=== PATIENT | male | born 1940 | race Caucasian/White ===

== ENCOUNTER → 2016-02-29 | Outpatient (CLI) | payer OTHER ==
[~2016-02-29] VITALS: Ht 177.8 cm; Wt 117.8 kg
[~2016-02-29] MED LIST: ALL300 PO; ALLO300T2 PO; ASPI81TA28 PO; ATOR-24 PO; CHOL1CAP67 PO; ERGO500037 PO; FINA5TAB PO; FURO-85 PO; INSDGI SC; INSUINJ4 SQ; METO25TA56 PO; NVLGI/PEN SQ; OMEG10007 PO
[2016-02-29 14:02] VITALS: BP 131/71; PULSE 80; Ht 177.8 cm; Wt 117.8 kg
== END | disposition home or self-care (01) ==
LOC: C.NEUR 13:42
PROVIDERS: ATTEND Internal Medicine Pulmonary Disease
DX: G47.33 Obstructive sleep apnea (adult) (pediatric) (principal)

== ENCOUNTER → 2016-03-03 | Outpatient (CLI) | payer OTHER ==
[~2016-03-03] MED LIST changes: -ALLO300T2 PO; -INSDGI SC
--- NOTE | 2016-03-04 06:03 | SPLIT NIGHT TECHNICIAN REPORT ---
[facility] Split Night Polysomnogram - Locomotive Operator Helper Report Study date: 03/03/2016 Referring Physician: Joe Webb M.D. Name: YURI PIMENTEL Locomotive Operator Helper: SAMIR Crain. Date of : 1940 Height: 75 years, Height 5' 10" Sex: Male Weight: 259 lbs Age: 75 Neck Circum: 19 inches BMI: Medications: 37.16 Allopurinol 300 mg, Aspirin 81 mg, Atorvastatin Calcium 40 mg, Ergocalciferol 72417 unit, Finasteride 5 mg, Fish Oil 1000 mg, Furosemide 20 mg, Lanuts, Metoprolol Tartrate 25 mg, Novolog 100 units, Patient History 75 yr. old male here for a modified split night sleep study if his AHI is greater than 15 in two hours of sleep. He complains of loud snoring, witnessed apneas, and EDS. Patients [place] sleepiness scale score is 15/24. Parameters Monitored NPSG: E1-M2, E2-M1, Fp1-M2, Fp2-M1, F3-M2, F4-M2, F4-M1, C3-M2, C4-M2, C4-M1, O1-M2, O2-M2, O2-M1, T3-M2, T4-M1, P3-M2, P4-M1, CHIN1, CHIN2, HR, EKG, Legs, PFLOW, SNOR, FLOW, CFLOW, Tidal Volume, THOR, ABDO, SpO2, PLTH, CPRESS, ETCO2 Wave, ETCO2, pH SLEEP SUMMARY DATA DIAGNOSTIC TREATMENT Lights Out: 11:08:25 PM NONE Lights On: 1:57:25 AM 5:37:25 AM Total Recording Time (TRT): 169.8 min. 207.2 min. Total Sleep Time (TST): 120.5 min. 202.5 min. NREM Time: 98.5 min. 137.0 min. REM Time: 22.0 min. 65.5 min. Sleep Period Time (SPT): 161.5 min. 205.5 min. Sleep Efficiency (SE): 71 % 98 % Sleep Latency: 7.5 min. NONE min. Arousal Index: 22.9 1.8 PAP Treatment Levels: 4, 5, 6, 7, 8, 9, 10, 11, 12, 13, 14, 15 * Optimal Pressure(s) SLEEP STAGING DATA DIAGNOSTIC TREATMENT Duration (min) TST % Duration (min) TST % Stage Wake: 48.8 min. -- 4.7 min. -- WASO: 41.0 min. -- 3.0 min. -- NREM: 98.5 min. 82 % 137.0 min. 68 % Stage N1: 10.5 min. 9 % 5.5 min. 3 % Stage N2: 88.0 min. 73 % 28.0 min. 14 % Stage N3: 0.0 min. 0 % 103.5 min. 51 % REM: 22.0 min. 18 % 65.5 min. 32 % POSITIONAL DATA Event Count Index Event Count Index Supine: 241 120.5 197 58.4 Supine NREM: 203 124.3 139 60.9 Supine REM: 38 104 58 53 Non-Supine: 1 120.0 N/A N/A Non-Supine NREM: 1 120.0 N/A N/A Non-Supine REM: N/A N/A N/A N/A AROUSAL SUMMARY DATA: Event Count Index Event Count Index Apnea Arousals: 10 27.4 0 2.7 Hypopnea Arousals: 26 12.9 0 0.0 Snore Arousals: 4 2.0 0 0.0 PLM Arousals: 3 1.5 3 0.9 Non-Specific Arousals: 2 1.0 0 0.0 Total Arousals: 46 22.9 6 1.8 MYOCLONUS (PLM) Event Count Index Event Count Index PLM: 90 44.8 395 117.0 PLM AROUSAL: 3 1.5 3 0.9 PLM W/O AROUSAL 90 44.8 392 116.1 PLM W/RESP EVENT 30 0.0 68 0.0 MYOCLONUS (PLM) Event Count Index Event Count Index LM: 3 91.6 77 22.8 LM AROUSAL: 3 1.5 3 0.9 LM W/O AROUSAL LM W/RESP EVENT LM NON SPECIFIC 114 56.8 375 111.1 HEART RATE DATA DIAGNOSTIC TREATMENT Sleep (bpm): 73 67 REM (bpm): 88 88 NREM (bpm): 89 90 Tachycardia Count: 0 0 Tachycardia Duration: 0.00 0 Bradycardia Count: 0 0 Bradycardia Duration: 0.00 0 DIAGNOSTIC PORTION TREATMENT PORTION RESPIRATORY DATA Event Count Index Event Count Index AHI: -- 120.5 -- 58.4 RDI: -- 120.5 -- 58 Obstructive Apnea: 53 26.4 7 2.1 Central Apnea: 0 0.0 2 0.6 Mixed Apnea: 2 1.0 0 0.0 Hypopnea: 187 93.1 188 55.7 RERA: 0 0.0 0 0.0 Total Apneas: 55 27.4 9 2.7 RESPIRATORY DATA REM NREM SLEEP REM NREM SLEEP Supine Position: Obstructive Apneas: 13 40 53 4 3 7 Central Apneas: 0 0 0 0 2 2 Mixed Apneas: 1 1 2 0 0 0 Hypopneas: 24 162 186 54 134 188 RERA 0 0 0 0 0 0 Total Supine Events: 38 203 241 58 139 197 Supine AHI: 104 124.3 120.5 53 60.9 58.4 Supine RDI: 103.6 124.3 120.5 53.1 60.9 58.4 REM NREM SLEEP REM NREM SLEEP Non-Supine Position: Obstructive Apneas: N/A 0 0 N/A N/A N/A Central Apneas: N/A 0 0 N/A N/A N/A Mixed Apneas: N/A 0 0 N/A N/A N/A Hypopneas: N/A 1 1 N/A N/A N/A RERA N/A 0 0 N/A N/A N/A Total Supine Events: N/A 1 1 N/A N/A N/A Supine AHI: N/A 120.0 120.0 N/A N/A N/A Supine RDI: N/A 120.0 120.0 N/A N/A N/A OXYGEN DESTAURATION DATA: Event Count Index Event Count Index REM Desaturations: 36 98.2 53 48.5 NREM Desaturations: 165 100.5 148 64.8 SNORE DATA DIAGNOSTIC TREATMENT Snore Time: 14.6 2:11:55 AM Snore TST%: 6 2 Snore Arousal Count: 4 0 Snore Arousal Index: 2.0 0.0 Desaturation Event Summary: Minimum %SpO2 Event Count Mean/Min/Max Duration(sec.) Desaturation Index % Time In Bed > 90 377 17.9 / 5.0 / 60.0 135.4 44.4 86 - 90 148 17.5 / 4.0 / 60.0 50.5 46.7 81 - 85 13 17.5 / 6.0 / 31.3 34.1 6.1 76 - 80 0 N/A 0.0 1.3 71 - 75 0 N/A 0.0 0.7 66 - 70 0 N/A 0.0 0.6 61 - 65 0 N/A 0.0 0.2 56 - 60 0 N/A 0.0 0.0 51 - 55 0 N/A 0.0 0.0 < 50 0 N/A 0.0 0.0 OXYGEN SATURATION DATA DIAGNOSTIC TREATMENT SpO2 Mean Sleep: 89 % 89 % SpO2 Mean REM: 88 % 88 % SpO2 Mean NREM: 89 % 90 % SpO2 Minimum Sleep: 61 % 65 % SpO2 Minimum REM: 65 % 65 % SpO2 Minimum NREM: 61 % 81 % Time Below 90% (TST): 54.0 104.9 Time Below 88% (TST): 32.0 51.1 Total REM NREM Awake <50% 0.0 min. 0.0 min. 0.0 min. 0.0 min. 51 - 60% 0.1 min. 0.0 min. 0.0 min. 0.1 min. 61 - 70% 2.9 min. 1.5 min. 1.1 min. 0.3 min. 71 - 80% 7.8 min. 5.8 min. 1.9 min. 0.0 min. 81 - 90% 198.6 min. 52.9 min. 129.7 min. 16.0 min. 91 - 100% 167.1 min. 27.3 min. 102.8 min. 37.0 min. Average 90 88 90 91 Minimum SpO2 58 65 61 58 Desaturation Event Index 70.3 61.0 79.7 44.9 # Desat. Events below 89% 319 81 221 17 Time(%) with Saturation below 89% 33.6 10.5 21.9 1.1 Time(min.) with Saturation below 89% 126.3 39.5 82.6 4.2 Recording Locomotive Operator Helper Comments: Mr. Pimentel slept in the supine position. No cardiac arrhythmia, Frequent PLMs noted throughout the entire night. No bruxism noted. Snoring was noted and scored as a 3 on a scale of 0 through 5. (0=no snoring, 5=snoring loud enough to be heard through a closed door or down the scanlon way) At 2:09 am , Mr. Pimentel met specific Split-Night criteria during the diagnostic portion of this study. CPAP was initiated at +4 CMH2O room air and up-titrated to a maximum level of +15 CMH2O Cflex. A resMed Mirage FX nasal mask, was used during titration. Mr. Pimentel awoke to use the restroom once during the night. The final report will be interpreted and signed by a sleep physician. The completed physician report will then be placed in the patient medical record. Therapy Event: Therapy (cm H20) 0 4 5 6 7 8 9 Total Time at Pressure (min.) 169.3 5.2 16.5 23.2 7.0 9.9 9.5 TST at Pressure (min.) 120.5 3.5 16.5 23.2 7.0 9.4 9.5 # Periods 1 1 1 1 1 1 1 Sleep Onset (min.) 7.5 1.7 0.0 0.0 0.0 0.0 0.0 REM Onset (min.) 118.5 N/A N/A N/A 2.4 0.0 0.0 Sleep Efficiency % 71 66 100 100 100 94 100 Wakefulness (%) 28.8 33.3 0.0 0.0 0.0 5.1 0.0 Wakefulness (min.) 48.8 1.7 0.0 0.0 0.0 0.5 0.0 NREM 1 (%) 6.2 38.4 0.0 0.0 0.0 5.1 0.0 NREM 1 (min.) 10.5 2.0 0.0 0.0 0.0 0.5 0.0 NREM 2 (%) 52.0 28.3 48.8 6.5 0.0 0.0 0.0 NREM 2 (min.) 88.0 1.5 8.0 1.5 0.0 0.0 0.0 NREM 3 (%) 0.0 0.0 51.2 93.5 33.9 0.0 0.0 NREM 3 (min.) 0.0 0.0 8.4 21.7 2.4 0.0 0.0 REM (%) 13.0 0.0 0.0 0.0 66.1 89.9 100.0 REM (min.) 22.0 0.0 0.0 0.0 4.6 8.9 9.5 # Arousals 46 0 0 1 0 0 0 Arousal Index 22.9 0.0 0.0 2.6 0.0 0.0 0.0 # Snore 515 3 83 36 3 7 1 Snore Index 256.4 51.8 302.7 93.0 25.9 44.8 6.3 AHI 120.5 103.7 10.9 12.9 51.7 89.7 63.4 AHI Supine 120.5 103.7 10.9 12.9 51.7 89.7 63.4 AHI Non-Supine 120.0 N/A N/A N/A N/A N/A N/A NREM AHI 124.3 103.7 10.9 12.9 25.4 0.0 N/A REM AHI 103.6 N/A N/A N/A 65.2 94.8 63.4 RDI 120.5 103.7 10.9 12.9 51.7 89.7 63.4 # Obstructive 53 0 0 0 4 0 0 # Central Ap 0 0 0 0 0 0 0 # Mixed 2 0 0 0 0 0 0 # Hypopneas 187 6 3 5 2 14 10 RERAS 0 0 0 0 0 0 0 Total Respiratory Events 242 6 3 5 6 14 10 Time Below SpO2 89.00% (min.) 42.5 1.8 14.9 19.6 4.8 7.2 6.9 Mean NREM SpO2 (%) 89 88 87 87 88 87 N/A Mean REM SpO2 (%) 88 N/A N/A N/A 82 85 86 Mean Sleep SpO2 (%) 89 88 87 87 84 85 86 Min NREM SpO2 (%) 61 85 85 85 86 81 N/A Min REM SpO2 (%) 65 N/A N/A N/A 65 75 75 Position Supine (min.) 120.0 3.5 16.5 23.2 7.0 9.4 9.5 Position Non-supine (min.) 0.5 0.0 0.0 0.0 0.0 0.0 0.0 LM Index Sleep 136.4 0.0 102.1 199.0 181.0 38.4 57.0 LM Index NREM 127.3 0.0 102.1 199.0 177.9 0.0 N/A LM Index REM 177.3 N/A N/A N/A 182.6 40.6 57.0 Mean Heart Rate (bpm) 73 70 69 70 71 73 71 Min Heart Rate (bpm) 64 66 65 64 62 66 65 Therapy (cm H20) 10 11 12 13 14 15 Total Time at Pressure (min.) 20.2 23.3 26.2 9.2 11.7 45.5 TST at Pressure (min.) 19.7 21.8 25.7 9.2 11.7 45.5 # Periods 1 1 1 1 1 1 Sleep Onset (min.) 0.0 0.0 0.0 0.0 0.0 0.0 REM Onset (min.) 0.0 0.0 0.0 N/A N/A N/A Sleep Efficiency % 97 93 98 100 100 100 Wakefulness (%) 2.5 6.4 1.9 0.0 0.0 0.0 Wakefulness (min.) 0.5 1.5 0.5 0.0 0.0 0.0 NREM 1 (%) 2.5 8.6 1.9 0.0 0.0 0.0 NREM 1 (min.) 0.5 2.0 0.5 0.0 0.0 0.0 NREM 2 (%) 0.0 8.6 30.6 0.0 0.0 15.4 NREM 2 (min.) 0.0 2.0 8.0 0.0 0.0 7.0 NREM 3 (%) 0.0 0.0 44.3 100.0 100.0 84.6 NREM 3 (min.) 0.0 0.0 11.6 9.2 11.7 38.5 REM (%) 95.1 76.4 21.3 0.0 0.0 0.0 REM (min.) 19.2 17.8 5.6 0.0 0.0 0.0 # Arousals 0 4 0 0 0 1 Arousal Index 0.0 11.0 0.0 0.0 0.0 1.3 # Snore 3 11 4 2 1 10 Snore Index 9.1 30.3 9.4 13.0 5.1 13.2 AHI 42.6 49.6 79.5 97.8 102.5 68.6 AHI Supine 42.6 49.6 79.5 97.8 102.5 68.6 AHI Non-Supine N/A N/A N/A N/A N/A N/A NREM AHI 120.0 75.0 92.6 97.8 102.5 68.6 REM AHI 40.6 43.9 32.3 N/A N/A N/A RDI 42.6 49.6 79.5 97.8 102.5 68.6 # Obstructive 1 0 0 0 1 1 # Central Ap 0 0 2 0 0 0 # Mixed 0 0 0 0 0 0 # Hypopneas 13 18 32 15 19 51 RERAS 0 0 0 0 0 0 Total Respiratory Events 14 18 34 15 20 52 Time Below SpO2 89.00% (min.) 5.7 6.6 6.2 1.3 1.2 3.5 Mean NREM SpO2 (%) 93 91 91 91 92 91 Mean REM SpO2 (%) 90 90 90 N/A N/A N/A Mean Sleep SpO2 (%) 90 90 91 91 92 91 Min NREM SpO2 (%) 89 86 85 85 87 86 Min REM SpO2 (%) 81 85 87 N/A N/A N/A Position Supine (min.) 19.7 21.8 25.7 9.2 11.7 45.5 Position Non-supine (min.) 0.0 0.0 0.0 0.0 0.0 0.0 LM Index Sleep 9.1 63.4 175.4 241.3 225.4 196.5 LM Index NREM 0.0 105.0 206.2 241.3 225.4 196.5 LM Index REM 9.4 54.0 64.6 N/A N/A N/A Mean Heart Rate (bpm) 68 66 65 65 64 63 Min Heart Rate (bpm) 63 59 58 60 58 57
--- NOTE | 2016-03-08 09:14 | POLYSOMNOGRAPH REPORT ---
CLINICAL DATA: A 75-year-old male with BMI of 37.16, referred for a split night sleep study with history of loud snoring, witnessed apnea, and excessive daytime sleepiness. His [place] Sleepiness score was 15/24. This was a split night study. His attending physician is Dr. Tobar. SLEEP ARCHITECTURE: For the diagnostic portion of the study, sleep period was 161.5 minutes. Total sleep time was 120.5 minutes, divided between 98.5 minutes of non-REM sleep and 22 minutes of REM sleep. Sleep latency was 7.5 minutes. Sleep efficiency was 71%. Arousal index was 22.9. Sleep consisted of stage N1 9%, N2 73%, REM 18%. For the treatment portion of the study, sleep period was 205.5 minutes. Total sleep time was 202.5 minutes, divided between 137 minutes of non-REM sleep and 65.5 minutes of REM sleep. Sleep latency was immediate. Sleep efficiency was 98%. Arousal index was 1.8. Sleep consisted of stage N1 3%, N2 14%, N3 51%, REM 32%. AROUSAL DATA: Prior to treatment, 46 arousals were recorded for an index of 22.9 per hour. Following treatment, 6 arousals were recorded for an index of 1.8 per hour. PLM DATA: Prior to treatment, 114 limb movements during sleep were noted for an index of 56.8 per hour. Following treatment, 375 limb movements during sleep were noted for an index of 111.1 per hour. EKG: Heart rates ranged from 67-90 beats per minute. No arrhythmias were noted. RESPIRATORY DATA: Prior to treatment, very severe obstructive sleep apnea was documented. The AHI was 120.5. There were 53 obstructive apneic episodes. There were 2 mixed apneic episodes. There were 187 hypopneic episodes. The average AHI following treatment was 58.4. There were 7 obstructive and 2 central apneic episodes. There were 188 hypopneic episodes. OXIMETRY DATA: Nocturnal hypoxemia was seen prior to treatment. Oxygen loyd was 61% prior to treatment. Mean saturation after treatment was 89%. GEODETIC SURVEY DIRECTOR'S COMMENTS: The patient slept supine. He had frequent PLMs throughout the night. Snoring was moderate, rated 3 on a scale of 1-5. At 2:09 a.m., the patient met split night criteria and CPAP was started using a ResMed Mirage FX nasal mask. The patient was started at 5 cm of water pressure and was titrated incrementally up to his final pressure setting of 15 cm of water pressure. No optimal pressure could be obtained. His AHI at 15 cm of water pressure was 68.6. He slept at that pressure for 45.5 minutes. IMPRESSION: Very severe sleep apnea/hypopnea with a diagnostic AHI of 120.5, improved but not totally corrected with CPAP 15 cm of water pressure. RECOMMENDATIONS: The patient may need a trial of either auto-CPAP 5-20 cm of water pressure or a repeat sleep study with BiPAP. DAVIDD
--- NOTE | 2016-03-10 10:46 | CODING QUERY MEDICAL NECESSITY ---
SUPPORTING DIAGNOSIS NEEDED A supporting diagnosis is required for the test/procedure performed on this patient in order for us to be reimbursed by the patient's insurance. Please provide a supporting diagnosis for the following test/procedure listed below next to the test name along with your signature. *If there is no additional diagnosis for this patient that would support the following test/procedure please document that below next to the test/procedure. Test(s)/Procedure(s) that require a supporting diagnosis: * SLEEP STUDY DIAGNOSIS: * DOS: 03/03/16 Provider Signature: Date: Thank you Inna [facility] Information Management Once completed, please kindly fax back to [phone] For questions please call [phone]
== END | disposition home or self-care (01) ==
LOC: C.NEUR 21:00
PROVIDERS: ATTEND Internal Medicine Pulmonary Disease
DX: R40.0 Somnolence (principal); E66.9 Obesity, unspecified; R06.83 Snoring; R06.81 Apnea, not elsewhere classified; G47.33 Obstructive sleep apnea (adult) (pediatric)

== ENCOUNTER → 2016-04-26 | Outpatient (CLI) | payer OTHER ==
[2016-04-26 17:26] LABS: BASO % 0.4 %; BASO ABS # 0.03 K/uL (0-0.2); COMPLETE YES; EOS % 3.9 %; IG% 0.6 %; LYMPH % 22.8 %; LYMPH ABS # 1.87 K/uL (1.2-3.4); MEAN CELL VOLUME 75.7 fL (80-100); MEAN CORPUSCULAR HEMOGLOBIN 24.5 pg (25-34); MEAN CORPUSCULAR HGB CONC 32.3 g/dl (32-36); MEAN PLATELET VOLUME 9.6 fL (7.4-10.4); MONO % 6.7 %; NEUT % 65.6 %; PLATELET COUNT 268 K/uL (130-400); RED BLOOD COUNT 5.68 M/uL (4.7-6.1)
[2016-04-26 17:31] LABS: BLOOD UREA NITROGEN 21 mg/dl (7-18); BUN/CREATININE RATIO 17.8 (10-20); CALCIUM 9.3 mg/dl (8.5-10.1); CARBON DIOXIDE 31 mmol/L (21-32); CHLORIDE 101 mmol/L (98-107); GLUCOSE 123 mg/dl (70-99); POTASSIUM 3.7 mmol/L (3.5-5.1); SODIUM 141 mmol/L (136-145)
[2016-04-26 17:47] LABS: ESTIMATED AVERAGE GLUCOSE 169 mg/dl; HA1C FLAG Normal (Normal)
== END | disposition home or self-care (01) ==
LOC: C.LABBFT 17:54
PROVIDERS: ATTEND Nurse Practitioner
DX: K62.5 Hemorrhage of anus and rectum (principal); E11.29 Type 2 diabetes mellitus with other diabetic kidney complication

== ENCOUNTER → 2016-09-08 | Outpatient (CLI) | payer OTHER ==
[~2016-09-08] VITALS: Ht 177.8 cm; Wt 114.4 kg
[~2016-09-08] MED LIST changes: -CHOL1CAP67 PO
[2016-09-08 15:10] VITALS: BP 136/77; PULSE 70; Ht 177.8 cm; Wt 114.4 kg
== END | disposition home or self-care (01) ==
LOC: C.NEUR 13:50
PROVIDERS: ATTEND Internal Medicine Pulmonary Disease
DX: G47.33 Obstructive sleep apnea (adult) (pediatric) (principal)

== ENCOUNTER → 2016-09-14 | Day surgery (SDC) | payer OTHER ==
[2016-09-04 13:41] VITALS: BMI 35.0
[~2016-09-14] VITALS: Ht 177.8 cm; Wt 112.7 kg
[~2016-09-14] MED LIST changes: +LIDOCAINE HCL 2% 2 ML VIAL (20MG/ML) ONE; +PROPOFOL IV EMULSION 10 MG/ML 20 ML VIAL IV ONE; +SODIUM CHLORIDE 0.9% 500ML 500 ML IV ONE
[2016-09-14 09:15] VITALS: Ht 177.8 cm; Wt 112.7 kg
--- NOTE | 2016-09-14 09:36 | Endo History and Physical ---
History & Physical Date of Service: Sep 14, 2016. Chief Complaint: ANAL BLEEDING Referring Physician: DR YUNG History of Present Illness rectal bleeding for colonoscopy Past Medical History Diabetes, Cancer, Hypertension, Kidney Disease Past Surgical History Hx Cardiac Surgery: No Hx Internal Defibrillator: No Hx Pacemaker: No Hx Abdominal Surgery: Yes (RICCARDO) Hx of Implantable Prosthesis: No Hx Post-Op Nausea and Vomiting: No Hx Cancer Surgery: Yes (MULT. SKIN EXCISIONS, LEFT PAROTID GLAND REMOVAL) Hx Thoracic Surgery: No Hx Orthopedic: No Hx Urinary Tract Surgery: No Family History None Social History Smoking Status: Former Smoker Hx Substance Use: No Hx Alcohol Use: No Allergies Coded Allergies: No Known Allergies (Verified , 09/14/16) Current Medications Reported Home Medications Medications Dose Route/Sig Max Daily Dose Days Date Category Dose Instructions Vitamin D 56491 Unit (Ergocalciferol) 50,000 Unit Cap 50,000 Unit PO WK 09/04/16 Reported Aspirin Ec (Aspirin) 81 Mg Tab 81 Mg PO QPM 11/26/14 Reported [place]-3 (Fish Oil) 1 Ea Cap 1 Cap PO BID 11/26/14 Reported Novolog Flexpen (Insulin Aspart) 100 Units/Ml Inj 20-25 Units SQ ACHS 11/11/14 Reported SLIDING SCALE PLUS REGULAR DOSE Lopressor (Metoprolol Tartrate) 25 Mg Tab 25 Mg PO BID 11/11/14 Reported Lasix (Furosemide) 20 Mg Tab 20 Mg PO QAM 11/11/14 Reported Lipitor (Atorvastatin Calcium) 40 Mg Tab 40 Mg PO QAM 05/28/13 Reported Proscar (Finasteride) 5 Mg Tab 5 Mg PO QAM 02/12/13 Reported Lantus Solostar Pen (Insulin Glargine) 100 Unit/ Inj 70 Units SQ HS 02/12/13 Reported Zyloprim * (Allopurinol) 300 Mg Tab 300 Mg PO QAM 02/03/07 Reported Vital Signs Weight (Kilograms): 112.73 Height (Feet): 5 Height (Inches): 10 Date Time Temp Pulse Resp B/P (MAP) Pulse Ox O2 Delivery O2 Flow Rate FiO2 09/14/16 09:23 36.5 79 20 156/75 (102) 95 Room Air Physical Exam General Appearance: no apparent distress Respiratory/Chest: Auscultation: breath sounds normal Cardiovascular: Heart Auscultation: RRR Abdomen: Inspection & Palpation: soft, no tenderness, guarding & rebound Assessment and Plan stable for colonoscopy
--- NOTE | 2016-09-14 10:05 | Discharge Instructions ---
Endoscopy Patient Instructions Date / Procedure(s) Performed Sep 14, 2016. Colonoscopy Allergy Information Coded Allergies: No Known Allergies (Verified , 09/14/16) Discharge Date / Findings Sep 14, 2016. hemorrhoids/diverticulosis and a small colon polyp. Medication Instructions Stopped Medication(s): ASPIRIN LAST DOSE 09/11/16 LANTUS INSULIN-HALF DOSE TAKEN (35 UNITS) 09/14/16 0005 restart ASA. Provider Instructions Activity Restrictions - No exercising or heavy lifting for 24 hours. - Do not drink alcohol the day of the procedure. - Do not drive a car or operate machinery until the day after the procedure. - Do not make any important decisions or sign important papers in 24 hours after the procedure. Following Day: - Return to full activity which may include returning to work/school. Diet Start your diet with liquids and light foods (jello, soup, juice, toast). Then eat your usual diet if not nauseated. Treatment For Common After Affects For mild abdominal pain, bloating, or excessive gas: - Rest - Eat lightly - Lie on right side Follow-Up Information Follow-up with DR YUNG as scheduled Anesthesia Information What You Should Know You have had a procedure that required some medicine to reduce anxiety and discomfort. This treatment is called moderate sedation. After receiving the treatment, you may be sleepy, but you will be able to breathe on your own. The effects of the treatment may last for several hours. Follow these instructions along with Activity/Diet recommendations noted above: * Do NOT do anything where dizziness or clumsiness would be dangerous. * Rest quietly at home today, then you can be up and about tomorrow. * Have a responsible person stay with you the rest of today. * You may have had an I.V. today. If so, you may take the dressing off later today. Recommendations Call your doctor if: * Trouble breathing * Continuous vomiting for more than 24 hours * Temperature above 101 degrees * Severe abdominal pain or bloating * Pain not relieved by pain medicine ordered * There is increased drainage or redness from any incision * A large amount of rectal bleeding greater than 2-3 tablespoons. (If you had a polyp/s removed or have hemorrhoids, a small amount of blood - from the rectum is to be expected.) * You have any unanswered questions or concerns. IN THE EVENT OF A SERIOUS EMERGENCY, GO TO THE NEAREST EMERGENCY ROOM Your discharge instructions were prepared by provider Fredo Rosales. Patient Instructions Signature Page [facility] Patient (or Guardian) Signature/Date: I have read and understand the instructions given to me by my caregivers. Caregiver/RN/Doctor Signature/Date: The above-named patient and/or guardian has received patient instructions on this date. + Original Patient Signature Page (only) stays with chart. Please make copy for patient.
--- NOTE | 2016-09-14 10:11 | Anesthesiology Progress Note ---
Anesthesia Post Op Note Date & Time Sep 14, 2016 at 10:11 Vital Signs Pain Intensity: 0 Vital Signs Past 12 Hours Date Time Temp Pulse Resp B/P (MAP) Pulse Ox O2 Delivery O2 Flow Rate FiO2 09/14/16 10:03 74 20 100/67 (78) 95 Room Air 09/14/16 09:23 36.5 79 20 156/75 (102) 95 Room Air Notes Mental Status: alert / awake / arousable, participated in evaluation Pt Amnestic to Procedure: Yes Nausea / Vomiting: adequately controlled Pain: adequately controlled Airway Patency, RR, SpO2: stable & adequate BP & HR: stable & adequate Hydration State: stable & adequate Anesthetic Complications: no major complications apparent
--- NOTE | 2016-09-14 10:14 | GI REPORT ---
Procedure Date: 09/14/2016 9:28 AM Procedure: Colonoscopy Indications: Hematochezia, Rectal bleeding Medicines: See the Anesthesia note for documentation of the administered medications Complications: No immediate complications. Estimated Blood Loss: Estimated blood loss was minimal. Procedure: Pre-Anesthesia Assessment: - Prior to the procedure, a History and Physical was performed, and patient medications, allergies and sensitivities were reviewed. The patient's tolerance of previous anesthesia was reviewed. - The risks and benefits of the procedure and the sedation options and risks were discussed with the patient. All questions were answered and informed consent was obtained. - Patient identification and proposed procedure were verified prior to the procedure by the physician and the nurse. The procedure was verified in the pre-procedure area. - Pre-procedure physical examination revealed no contraindications to sedation. - After reviewing the risks and benefits, the patient was deemed in satisfactory condition to undergo the procedure. After I obtained informed consent, the scope was passed under direct vision. Throughout the procedure, the patient's blood pressure, pulse, and oxygen saturations were monitored continuously. The Scope was introduced through the anus and advanced to the cecum, identified by appendiceal orifice and ileocecal valve. The colonoscopy was performed without difficulty. The patient tolerated the procedure well. The quality of the bowel preparation was good. Findings: The perianal and digital rectal examinations were normal. A 4 mm polyp was found at 50 cm proximal to the anus. The polyp was sessile. The polyp was removed with a cold snare. Resection and retrieval were complete. Verification of patient identification for the specimen was done by the physician and nurse using the patient's name and medical record number. Estimated blood loss was minimal. Multiple small-mouthed diverticula were found in the sigmoid colon, in the descending colon and in the ascending colon. A diminutive polyp was found in the recto-sigmoid colon. The polyp was sessile. The polyp was removed with a cold snare. Resection was complete, but the polyp tissue was not retrieved. Estimated blood loss was minimal. Internal hemorrhoids were found during retroflexion. The exam was otherwise without abnormality on direct and retroflexion views. Impression: - One 4 mm polyp at 50 cm proximal to the anus, removed with a cold snare. Resected and retrieved. - Diverticulosis in the sigmoid colon, in the descending colon and in the ascending colon. - One diminutive polyp at the recto-sigmoid colon, removed with a cold snare. Complete resection. Polyp tissue not retrieved. - Internal hemorrhoids. - The examination was otherwise normal on direct and retroflexion views. Recommendation: - Await pathology results. - Discharge patient to home. Fredo Rosales M.D. Fredo Rosales MD 09/14/2016 10:13:29 AM This report has been signed electronically. Note Initiated On: 09/14/2016 9:28 AM I attest to the content of the Intraoperative Record and orders documented therein, exceptions below
[2016-09-14 10:37] VITALS: BP 134/72; PULSE 74; O2SAT 95
== END | disposition home or self-care (01) ==
LOC: C.GI 08:58
PROVIDERS: ATTEND Internal Medicine Gastroenterology
DX: K92.1 Melena (principal); K57.30 Diverticulosis of large intestine without perforation or abscess without bleeding; K64.8 Other hemorrhoids; E11.9 Type 2 diabetes mellitus without complications; I12.9 Hypertensive chronic kidney disease with stage 1 through stage 4 chronic kidney disease, or unspecified chronic kidney disease; N18.9 Chronic kidney disease, unspecified; Z87.891 Personal history of nicotine dependence; Z90.49 Acquired absence of other specified parts of digestive tract; Z79.82 Long term (current) use of aspirin

== ENCOUNTER → 2016-10-03 | Outpatient (CLI) | payer OTHER ==
[~2016-10-03] MED LIST changes: -LIDOCAINE HCL 2% 2 ML VIAL (20MG/ML) ONE; -PROPOFOL IV EMULSION 10 MG/ML 20 ML VIAL IV ONE; -SODIUM CHLORIDE 0.9% 500ML 500 ML IV ONE
[2016-10-03 12:40] LABS: ESTIMATED AVERAGE GLUCOSE 163 mg/dl; HA1C FLAG Normal (Normal)
[2016-10-03 14:42] LABS: ALT/SGPT 24 U/L (12-78); AST/SGOT 10 U/L (15-37); BLOOD UREA NITROGEN 17 mg/dl (7-18); BUN/CREATININE RATIO 14.4 (10-20); CALCIUM 8.9 mg/dl (8.5-10.1); CARBON DIOXIDE 30 mmol/L (21-32); CHLORIDE 101 mmol/L (98-107); CHOLESTEROL 170 mg/dl (0-200); GLUCOSE 140 mg/dl (70-99); SODIUM 139 mmol/L (136-145)
[2016-10-03 14:45] LABS: ALB/GLOB RATIO 0.8 (0.9-2); ALKALINE PHOSPHATASE 70 U/L (45-117); CHOLESTEROL/HDL RATIO 5.3; HDL CHOLESTEROL 32 mg/dl; LDL CHOLESTEROL CALCULATED 95 mg/dl; TRIGLYCERIDES 214 mg/dl (0-150); VERY LOW DENSITY LIPOPROT CALC 43 mg/dl
== END | disposition home or self-care (01) ==
LOC: C.LAB1850 09:46
PROVIDERS: ATTEND Nurse Practitioner Adult Health
DX: E78.5 Hyperlipidemia, unspecified (principal); I10 Essential (primary) hypertension; E11.29 Type 2 diabetes mellitus with other diabetic kidney complication; Z79.4 Long term (current) use of insulin

== ENCOUNTER → 2016-11-21 | Day surgery (SDC) | payer OTHER ==
[2016-10-24 13:08] VITALS: Ht 177.8 cm; Wt 112.7 kg
[~2016-11-21] VITALS: Ht 177.8 cm; Wt 112.7 kg
[~2016-11-21] MED LIST changes: +500ML BSS 0.3ML EPI 1:1000PF IRRIG ONE; +ACETAMINOPHEN 325 MG TAB PO PRN; +AMVISC PLUS 0.8ML SYRINGE INT OCU ONE; +ATROPINE SULFATE 0.1 MG/ML 5ML SYR IV PRN; +BSS FLUSH ONE; +EpHEDrine SULFATE INJ 50 MG/ML AMP IV PRN; +EpINEphrine INJ 1MG/ML AMP 1 MG/ML AMP ONE; +LACTATED RINGER'S 1000ML 500 ML IV SCH; +LIDOCAINE 3.5% OPH GEL PER APPLICATION CHARGE ONE; +LIDOCAINE HCL 1% MPF 2 ML VIAL ONE; +MIDAZOLAM HCL 1 MG/ML 2ML VIAL ONE; +OCUCOAT 1 ML SOLN IO ONE; +POVIDONE-IODINE OP SOLN 30 ML BTL ONE; +PROPARACAINE 0.5% OP SOLN PER DROP CHARGE OPL SCH; +TOBRAMYCIN/DEXAMETHASONE OPH OINT PER APPLN CHARGE ONE
[2016-11-21] MEDS: TROPICAMIDE 1% OP SOLN PER DROP CHARGE OPL SCH ×2 (06:40→06:46)
[2016-11-21] MEDS: PHENYLEPHRINE HCL 2.5% OP SOLN PER DROP CHARGE OPL SCH ×2 (06:40→06:45)
[2016-11-21] MEDS: CYCLOPENTOLATE HCL 1% OP SOLN PER DROP CHARGE OPL SCH ×2 (06:42→06:47)
[2016-11-21] MEDS: KETOROLAC 0.5% OP SOLN PER DROP CHARGE OPL SCH ×2 (06:43→06:48)
[2016-11-21] MEDS: GATIFLOXACIN OP SOLN PER DROP CHARGE OPL SCH ×2 (06:44→06:49)
--- NOTE | 2016-11-21 06:59 | History & Physical Bridge - SC ---
H&P Re-Evaluation Bridge Note: I have examined the patient, reviewed the History & Physical and in the interval since the performance of the History & Physical I have noted the following changes of clinical significance: Diagnosis: Left Cataract Procedure: Left Cataract Removal with Lens Implant No changes noted
--- NOTE | 2016-11-21 07:21 | Discharge Instructions-SurgCtr ---
Discharge Instructions Date of Service Nov 21, 2016. Visit Reason for Visit: Cataract Left Eye Discharge Discharge Diagnosis / Problem: cataract Discharge Goals Goal(s): Improve function Activity Recommendations Activity Limitations: per Instructions/Follow-up section Anesthesia . Post Anesthesia Instructions: If you have had General Anesthesia or IV Sedation: * Do not drive today. * Resume driving when surgeon permits. * Do not make important decisions or sign legal documents today. * Call surgeon for: 1. Temperature elevations greater than 101 degrees F. 2. Uncontrollable pain. 3. Excessive bleeding. 4. Persistent nausea and vomiting. 5. Medication intolerance (nausea, vomiting or rash). * For nausea and vomiting use only clear liquids such as: tea, soda, bouillon until nausea subsides, then gradually increase diet as tolerated. * If you have any concerns or questions, call your surgeon's office. If physician is unavailable and it is an emergency, call 911 or go to the nearest emergency room. . Diet Recommendations Home Diet: resume previous diet Procedures Procedures Performed: Left Cataract Phacoemulsification With Intraocular Lens Implant Pending Studies Studies pending at discharge: no Medical Emergencies . Who to Call and When: Medical Emergencies: If at any time you feel your situation is an emergency, please call 911 immediately. . Non-Emergent Contact Non-Emergency issues call your: [employer] . . "Provider Documentation" section prepared by Robel Daigle. .
--- NOTE | 2016-11-21 07:22 | [facility] Operative Report ---
Operative Report Date of Service Nov 21, 2016. Operative Report 1. PREOPERATIVE DIAGNOSIS: Cataract of the left eye. 2. POSTOPERATIVE DIAGNOSIS: Same. 3. PROCEDURE: Phacoemulsification with intraocular lens implantation of the left eye. SURGEON: Dr. Robel Daigle. ANESTHESIA: Topical Lidocaine gel, 1% Non- Preserved intracameral Lidocaine, and monitored intravenous sedation. INDICATIONS FOR THE PROCEDURE: The patient is a 76 - year-old male with a history of cataract of the left eye causing significant visual impairment. The details of the proposed procedure were explained to the patient who asked appropriate questions and following discussion of all risks, benefits and alternatives agreed to have the procedure done. 4. OPERATION AND FINDINGS: DESCRIPTION OF PROCEDURE: After informed consent was obtained, the patient was brought to the Operating Room at the [facility]. The patient was placed in a supine position and then the left eye was prepped and draped in the usual sterile fashion for intraocular surgery. A drop of topical Lidocaine gel was placed in the operative eye. A wire lid speculum was then placed in the fornices. A corneal paracentesis was then created temporally. The Non-Preserved Lidocaine was then instilled into the anterior chamber. The anterior chamber was then pressurized with viscoelastic. A 2.0 mm clear corneal incision was then created temporally. A cystotome was inserted into the anterior chamber and used to create a tear in the anterior lens capsule. This capsular tear was then used to create a small flap and the flap was dragged in a counterclockwise direction in order to create a continuous curvilinear capsulorrhexis. Hydrodissection was accomplished with balanced salt solution. Phacoemulsification of the lens nucleus was then performed in a standard [id number] technique. The phaco time was 28 seconds with an average power of 6 %. The remaining cortical material was removed using irrigation aspiration. The capsular bag was then filled with viscoelastic. A Bausch & Lomb MI60L +21.5 diopters lens was then loaded into the injector and injected into the capsular bag. The remaining viscoelastic was removed with the irrigation aspiration handpiece. The wound was hydrated and then checked and found to be watertight. The intraocular pressure was checked and found to be adequate. The wire lid speculum was removed and the patient's face was cleaned and dried. TobraDex ointment was placed in the inferior fornix. The patient was discharged to the Recovery Room having tolerated the procedure well. There were no complications. The patient will be seen tomorrow in the office for follow-up. I attest to the content of the Intraoperative Record and any orders documented therein. Any exceptions are noted below.
--- NOTE | 2016-11-21 07:35 | Anesthesia Progress Nt - [facility] ---
Anesthesia Post Op Note Date & Time Nov 21, 2016 at 07:35 Vital Signs Vital Signs Past 12 Hours Date Time Temp Pulse Resp B/P (MAP) Pulse Ox O2 Delivery O2 Flow Rate FiO2 11/21/16 07:25 36.3 63 20 151/81 (104) 96 Room Air 11/21/16 06:31 36.6 65 18 161/88 (112) 94 Room Air Notes Mental Status: alert / awake / arousable, participated in evaluation Pt Amnestic to Procedure: Yes Nausea / Vomiting: adequately controlled Pain: adequately controlled Airway Patency, RR, SpO2: stable & adequate BP & HR: stable & adequate Hydration State: stable & adequate Anesthetic Complications: no major complications apparent
[2016-11-21 07:40] VITALS: BP 134/75; PULSE 58; O2SAT 94
== END | disposition home or self-care (01) ==
LOC: X.SURG 06:21
PROVIDERS: ATTEND Ophthalmology
DX: H26.9 Unspecified cataract (principal); M19.90 Unspecified osteoarthritis, unspecified site; N40.0 Benign prostatic hyperplasia without lower urinary tract symptoms; N18.3 Chronic kidney disease, stage 3 (moderate); Z85.828 Personal history of other malignant neoplasm of skin; E78.5 Hyperlipidemia, unspecified; I12.9 Hypertensive chronic kidney disease with stage 1 through stage 4 chronic kidney disease, or unspecified chronic kidney disease; E66.9 Obesity, unspecified; G47.33 Obstructive sleep apnea (adult) (pediatric); E11.29 Type 2 diabetes mellitus with other diabetic kidney complication; Z79.4 Long term (current) use of insulin; Z87.891 Personal history of nicotine dependence; Z79.82 Long term (current) use of aspirin; M10.9 Gout, unspecified; Z85.858 Personal history of malignant neoplasm of other endocrine glands; Z90.89 Acquired absence of other organs

== ENCOUNTER → 2016-12-14 | Outpatient (CLI) | payer OTHER ==
[~2016-12-14] MED LIST changes: -500ML BSS 0.3ML EPI 1:1000PF IRRIG ONE; -ACETAMINOPHEN 325 MG TAB PO PRN; +ALLO300T2 PO; -AMVISC PLUS 0.8ML SYRINGE INT OCU ONE; -ATROPINE SULFATE 0.1 MG/ML 5ML SYR IV PRN; -BSS FLUSH ONE; -EpHEDrine SULFATE INJ 50 MG/ML AMP IV PRN; -EpINEphrine INJ 1MG/ML AMP 1 MG/ML AMP ONE; +INSDGI SC; -LACTATED RINGER'S 1000ML 500 ML IV SCH; -LIDOCAINE 3.5% OPH GEL PER APPLICATION CHARGE ONE; -LIDOCAINE HCL 1% MPF 2 ML VIAL ONE; -MIDAZOLAM HCL 1 MG/ML 2ML VIAL ONE; -OCUCOAT 1 ML SOLN IO ONE; -POVIDONE-IODINE OP SOLN 30 ML BTL ONE; -PROPARACAINE 0.5% OP SOLN PER DROP CHARGE OPL SCH; -TOBRAMYCIN/DEXAMETHASONE OPH OINT PER APPLN CHARGE ONE
[2016-12-14 14:17] VITALS: BP 124/69; PULSE 64; TEMP 36.6; O2SAT 96
--- NOTE | 2016-12-14 15:54 | Radiation Oncology Follow-Up ---
Radiation Oncology Follow-Up Date of Visit Dec 14, 2016. 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 He's had no issues with taste or xerostomia. He does have decrease sensation in the lower inner lip. Sometimes food will become lodged in this area. He has no problems with accidental bleeding of the inner lip or cheek. He has no problems with drooling. Last year he had been having issues with fatigue. He was evaluated and found to have sleep apnea. He now uses C Pap machine at night. His fatigue is less. Last year he was sent for carotid Doppler evaluation. There was no evidence of significant carotid stenosis. He is followed closely by dermatology. He has been found to have a new lesion at the vertex of the scalp. He'll be undergoing Mohs procedure. He is now following with ENT and will be seeing next week. Allergies Coded Allergies: No Known Allergies (Verified , 11/21/16) Home Medications Scheduled Allopurinol (Zyloprim *), 300 MG PO QAM Aspirin (Aspirin Ec), 81 MG PO QPM Atorvastatin (Lipitor), 40 MG PO QAM Ergocalciferol (Vitamin D 66479 Unit), 50,000 UNIT PO WK Finasteride (Proscar), 5 MG PO QAM Fish Oil (Tennga-3), 1 CAP PO BID Furosemide (Lasix), 20 MG PO QAM Insulin Aspart (Novolog Flexpen), 20-25 UNITS SQ ACHS Insulin Glargine (Lantus Solostar Pen), 70 UNITS SQ HS Metoprolol Tartrate (Lopressor) (Lopressor), 25 MG PO BID Review of Systems Gastrointestinal: Symptoms: WNL GI Comments: Left side of jaw has a numb sensation; Oral: Symptoms: No Problems Other Oral Symptoms: Can dribble sometimes out of the corner of the left side of his mouth; Respiratory: Symptoms: Dry Cough Other Respiratory: Intermittent dry cough in the evenings; Urinary: Symptoms: WNL Skin: Symptoms: No Problems Physical Exam Vital Signs Date Time Temp Pulse Resp B/P (MAP) Pulse Ox O2 Delivery O2 Flow Rate FiO2 12/14/16 14:17 36.6 64 16 124/69 96 Fatigue: None General Appearance: no apparent distress, + pertinent finding (left facial droop) Eyes: normal inspection, PERRL ENT: normal ENT inspection, hearing grossly normal Neck: no adenopathy, thyroid normal, + pertinent finding (postoperative changes are noted of the left neck.) Respiratory/Chest: lungs clear, no respiratory distress, no accessory muscle use Cardiovascular: regular rate, rhythm, no gallop, no murmur Abdomen: non tender, soft, no organomegaly Extremities: no pedal edema Neurologic/Psychiatric: no motor/sensory deficits, alert, normal mood/affect Skin: warm/dry Laboratory Studies Test 10/03/16 09:51 11/21/16 06:41 11/21/16 07:22 12/14/16 14:50 Sodium Level 139 mmol/L (136-145) Potassium Level 4.0 mmol/L (3.5-5.1) Chloride Level 101 mmol/L (98-107) Carbon Dioxide Level 30 mmol/L (21-32) Anion Gap 8.0 mmol/L (3-11) Blood Urea Nitrogen 17 mg/dl (7-18) Creatinine 1.20 mg/dl (0.60-1.40) Estimated GFR () 67.2 Estimated GFR (Non- 58.0 BUN/Creatinine Ratio 14.4 (10-20) Random Glucose 140 mg/dl (70-99) Estimated Average Glucose 163 mg/dl Hemoglobin A1c 7.3 % (4.5-5.6) Calcium Level 8.9 mg/dl (8.5-10.1) Total Bilirubin 0.4 mg/dl (0.2-1) Aspartate Amino Transferase (AST) 10 U/L (15-37) Alanine Aminotransferase (ALT) 24 U/L (12-78) Alkaline Phosphatase 70 U/L (45-117) Total Protein 7.3 gm/dl (6.4-8.2) Albumin 3.3 gm/dl (3.4-5.0) Globulin 4.0 gm/dl (2.5-4.0) Albumin/Globulin Ratio 0.8 (0.9-2) Triglycerides Level 214 mg/dl (0-150) Cholesterol Level 170 mg/dl (0-200) HDL Cholesterol 32 mg/dl LDL Cholesterol, Calculated 95 mg/dl VLDL Cholesterol, Calculated 43 mg/dl Cholesterol/HDL Ratio 5.3 POC Glucose 108 mg/dl (70-99) 112 mg/dl (70-99) Additional Studies ULTRASOUND OF THE CAROTID ARTERIES CLINICAL HISTORY: PRIOR HEAD/NECK RADIATION EVALUATE FOR CAROTID STENOSIS COMPARISON STUDY: 02/17/2013 TECHNIQUE: Real-time, grayscale, and color Doppler sonography of the carotid arteries was performed. Imaging reviewed in the transverse and longitudinal planes. NASCET criteria was utilized for stenosis calcification. FINDINGS: There is minimal atherosclerotic plaque present . The peak systolic velocity within the right internal carotid artery is 54 cm/sec. The systolic velocity ratio of right internal to common carotid artery is 1.0. The peak systolic velocity within the left internal carotid artery is 65 cm/sec. The systolic velocity ratio left internal to common carotid artery is 1.1. Antegrade flow is seen in the vertebral arteries. The external carotid arteries are patent. Blood pressure in the right arm measured 136 mm/Hg. Blood pressure in the left arm measured 122 mm/Hg. IMPRESSION: No evidence of hemodynamically significant carotid stenosis. Electronically signed by: Sammy Chand M.D. 12/03/2015 12:46 PM Assessment & Plan Plan: Continue follow-up with his primary care provider, dermatology, and ENT. Carotid Dopplers were checked last year. We will not plan for carotid Doppler this year. He has not had a TSH since 2014. A TSH was drawn today. He'll be notified as the results. He follows with Dr. Webb in regards to the sleep apnea. He'll be undergoing a Mohs procedure to the lesion on his scalp. We asked him to return to our office in 1 year. He may call if he has any questions or concerns in the interim. Total Time In Follow-Up I spent 20 minutes speaking to the patient and performing examination. I spent 15 minutes reviewing information and completing this note. Copy To Calvin Khan MD; Elmer Tobar M.D.; Ivonne Nieves M.D.
== END | disposition home or self-care (01) ==
LOC: C.ONC 14:11
PROVIDERS: ATTEND Physician Assistant Medical
DX: Z08 Encounter for follow-up examination after completed treatment for malignant neoplasm (principal); Z92.3 Personal history of irradiation; Z85.89 Personal history of malignant neoplasm of other organs and systems

== ENCOUNTER → 2017-01-16 | Day surgery (SDC) | payer OTHER ==
[2016-12-26 09:44] VITALS: Ht 177.8 cm; Wt 112.7 kg
--- NOTE | 2016-12-26 11:07 | PAT Medication Instructions ---
Service Date Dec 26, 2016. Current Home Medication List Allopurinol (Zyloprim), 300 MG PO QAM Aspirin (Aspirin Ec), 81 MG PO QPM Atorvastatin (Lipitor), 40 MG PO HS Ergocalciferol (Vitamin D 91293 Unit), 50,000 UNIT PO WK Finasteride (Proscar), 5 MG PO QAM Fish Oil ([place]part[place]-3), 1 CAP PO BID Furosemide (Lasix), 20 MG PO QAM Insulin Aspart (Novolog Flexpen), 20-25 UNITS SQ ACHS Insulin Glargine (Lantus), 70 UNITS SC QPM Metoprolol Tartrate (Lopressor) (Lopressor), 25 MG PO BID Medication Instructions For Your Scheduled Surgery - Check with surgeon and prescribing provider for instructions: Aspirin (Aspirin Ec), 81 MG PO QPM - Hold the following medications 2 weeks prior to surgery: Fish Oil (Sparta-3), 1 CAP PO BID - Hold the following medications the morning of surgery: Insulin Aspart (Novolog Flexpen), 20-25 UNITS SQ ACHS Furosemide (Lasix), 20 MG PO QAM Finasteride (Proscar), 5 MG PO QAM Ergocalciferol (Vitamin D 75645 Unit), 50,000 UNIT PO WK - Take the following medications the morning of surgery with a sip of water: Allopurinol (Zyloprim), 300 MG PO QAM Metoprolol Tartrate (Lopressor) (Lopressor), 25 MG PO BID - Take the following medications as scheduled the night before surgery: Metoprolol Tartrate (Lopressor) (Lopressor), 25 MG PO BID Insulin Glargine (Lantus), 70 UNITS SC QPM Insulin Aspart (Novolog Flexpen), 20-25 UNITS SQ ACHS Atorvastatin (Lipitor), 40 MG PO HS If you have any questions please call us at [phone] or [phone] or [phone]
[~2017-01-16] VITALS: Ht 177.8 cm; Wt 112.7 kg
[~2017-01-16] MED LIST changes: +500ML BSS 0.3ML EPI 1:1000PF IRRIG ONE; +ACETAMINOPHEN 325 MG TAB PO PRN; -ALL300 PO; +AMVISC PLUS 0.8ML SYRINGE INT OCU ONE; +ATROPINE SULFATE 0.1 MG/ML 5ML SYR IV PRN; +BSS FLUSH ONE; +EpHEDrine SULFATE INJ 50 MG/ML AMP IV PRN; +EpINEphrine INJ 1MG/ML AMP 1 MG/ML AMP ONE; -INSUINJ4 SQ; +LACTATED RINGER'S 1000ML 500 ML IV SCH; +LIDOCAINE 3.5% OPH GEL PER APPLICATION CHARGE ONE; +LIDOCAINE HCL 1% MPF 2 ML VIAL ONE; +MIDAZOLAM HCL 1 MG/ML 2ML VIAL ONE; +POVIDONE-IODINE OP SOLN 30 ML BTL ONE; +PROPARACAINE 0.5% OP SOLN PER DROP CHARGE OPR SCH; +TOBRAMYCIN/DEXAMETHASONE OPH OINT PER APPLN CHARGE ONE
[2017-01-16] MEDS: PHENYLEPHRINE HCL 2.5% OP SOLN PER DROP CHARGE OPR SCH ×2 (07:19→07:24)
[2017-01-16] MEDS: TROPICAMIDE 1% OP SOLN PER DROP CHARGE OPR SCH ×2 (07:20→07:25)
[2017-01-16] MEDS: CYCLOPENTOLATE HCL 1% OP SOLN PER DROP CHARGE OPR SCH ×2 (07:21→07:25)
[2017-01-16] MEDS: KETOROLAC 0.5% OP SOLN PER DROP CHARGE OPR SCH ×2 (07:22→07:26)
[2017-01-16] MEDS: GATIFLOXACIN OP SOLN PER DROP CHARGE OPR SCH ×2 (07:23→07:28)
--- NOTE | 2017-01-16 07:54 | History & Physical Bridge - [facility] ---
H&P Re-Evaluation Bridge Note: I have examined the patient, reviewed the History & Physical and in the interval since the performance of the History & Physical I have noted the following changes of clinical significance: No changes noted
[2017-01-16 08:35] VITALS: TEMP 36.6
--- NOTE | 2017-01-16 08:35 | Discharge Instructions-SurgCtr ---
Discharge Instructions Date of Service Jan 16, 2017. Visit Reason for Visit: Right Cataract Discharge Discharge Diagnosis / Problem: cataract Discharge Goals Goal(s): Improve function Activity Recommendations Activity Limitations: per Instructions/Follow-up section Anesthesia . Post Anesthesia Instructions: If you have had General Anesthesia or IV Sedation: * Do not drive today. * Resume driving when surgeon permits. * Do not make important decisions or sign legal documents today. * Call surgeon for: 1. Temperature elevations greater than 101 degrees F. 2. Uncontrollable pain. 3. Excessive bleeding. 4. Persistent nausea and vomiting. 5. Medication intolerance (nausea, vomiting or rash). * For nausea and vomiting use only clear liquids such as: tea, soda, bouillon until nausea subsides, then gradually increase diet as tolerated. * If you have any concerns or questions, call your surgeon's office. If physician is unavailable and it is an emergency, call 911 or go to the nearest emergency room. . Diet Recommendations Home Diet: resume previous diet Procedures Procedures Performed: Right Cataract Phacoemulsification With Intraocular Lens Implant Pending Studies Studies pending at discharge: no Medical Emergencies . Who to Call and When: Medical Emergencies: If at any time you feel your situation is an emergency, please call 911 immediately. . Non-Emergent Contact Non-Emergency issues call your: [employer] . . "Provider Documentation" section prepared by Robel Daigle. .
--- NOTE | 2017-01-16 08:36 | [facility] Operative Report ---
Operative Report Date of Service Jan 16, 2017. Operative Report 1. PREOPERATIVE DIAGNOSIS: Cataract of the right eye. 2. POSTOPERATIVE DIAGNOSIS: Same. 3. PROCEDURE: Phacoemulsification with intraocular lens implantation of the right eye. SURGEON: Dr. Robel Daigle. ANESTHESIA: Topical Lidocaine gel, 1% Non- Preserved intracameral Lidocaine, and monitored intravenous sedation. INDICATIONS FOR THE PROCEDURE: The patient is a 76 - year-old male with a history of cataract of the right eye causing significant visual impairment. The details of the proposed procedure were explained to the patient who asked appropriate questions and following discussion of all risks, benefits and alternatives agreed to have the procedure done. 4. OPERATION AND FINDINGS: DESCRIPTION OF PROCEDURE: After informed consent was obtained, the patient was brought to the Operating Room at the [facility]. The patient was placed in a supine position and then the right eye was prepped and draped in the usual sterile fashion for intraocular surgery. A drop of topical Lidocaine gel was placed in the operative eye. A wire lid speculum was then placed in the fornices. A corneal paracentesis was then created temporally. The Non-Preserved Lidocaine was then instilled into the anterior chamber. The anterior chamber was then pressurized with viscoelastic. A 2.0 mm clear corneal incision was then created temporally. A cystotome was inserted into the anterior chamber and used to create a tear in the anterior lens capsule. This capsular tear was then used to create a small flap and the flap was dragged in a counterclockwise direction in order to create a continuous curvilinear capsulorrhexis. Hydrodissection was accomplished with balanced salt solution. Phacoemulsification of the lens nucleus was then performed in a standard [id number] technique. The phaco time was 26 seconds with an average power of 8 %. The remaining cortical material was removed using irrigation aspiration. The capsular bag was then filled with viscoelastic. A Bausch & Lomb MI60L +19.5 diopters lens was then loaded into the injector and injected into the capsular bag. The remaining viscoelastic was removed with the irrigation aspiration handpiece. The wound was hydrated and then checked and found to be watertight. The intraocular pressure was checked and found to be adequate. The wire lid speculum was removed and the patient's face was cleaned and dried. TobraDex ointment was placed in the inferior fornix. The patient was discharged to the Recovery Room having tolerated the procedure well. There were no complications. The patient will be seen tomorrow in the office for follow-up. I attest to the content of the Intraoperative Record and any orders documented therein. Any exceptions are noted below.
[2017-01-16 09:03] VITALS: BP 128/77; PULSE 57; O2SAT 94
--- NOTE | 2017-01-16 09:09 | Anesthesia Progress Nt - [facility] ---
Anesthesia Post Op Note Date & Time Jan 16, 2017 at 09:09 Vital Signs Pain Intensity: 0 Vital Signs Past 12 Hours Date Time Temp Pulse Resp B/P (MAP) Pulse Ox O2 Delivery O2 Flow Rate FiO2 01/16/17 09:03 57 16 128/77 (94) 94 Room Air 01/16/17 07:09 36.5 62 18 134/78 (96) 95 Room Air Notes Mental Status: alert / awake / arousable, participated in evaluation Pt Amnestic to Procedure: Yes Nausea / Vomiting: adequately controlled Pain: adequately controlled Airway Patency, RR, SpO2: stable & adequate BP & HR: stable & adequate Hydration State: stable & adequate Anesthetic Complications: no major complications apparent
== END | disposition home or self-care (01) ==
LOC: X.SURG 06:51
PROVIDERS: ATTEND Ophthalmology
DX: H26.9 Unspecified cataract (principal); E11.22 Type 2 diabetes mellitus with diabetic chronic kidney disease; I12.9 Hypertensive chronic kidney disease with stage 1 through stage 4 chronic kidney disease, or unspecified chronic kidney disease; N18.3 Chronic kidney disease, stage 3 (moderate); E78.5 Hyperlipidemia, unspecified; D64.9 Anemia, unspecified; E66.9 Obesity, unspecified; M10.9 Gout, unspecified; Z79.4 Long term (current) use of insulin; Z79.82 Long term (current) use of aspirin; Z79.899 Other long term (current) drug therapy

== ENCOUNTER → 2017-03-09 | Outpatient (CLI) | payer OTHER ==
[~2017-03-09] VITALS: Ht 177.8 cm; Wt 118.1 kg
[~2017-03-09] MED LIST changes: -500ML BSS 0.3ML EPI 1:1000PF IRRIG ONE; -ACETAMINOPHEN 325 MG TAB PO PRN; -AMVISC PLUS 0.8ML SYRINGE INT OCU ONE; -ATROPINE SULFATE 0.1 MG/ML 5ML SYR IV PRN; -BSS FLUSH ONE; -EpHEDrine SULFATE INJ 50 MG/ML AMP IV PRN; -EpINEphrine INJ 1MG/ML AMP 1 MG/ML AMP ONE; -LACTATED RINGER'S 1000ML 500 ML IV SCH; -LIDOCAINE 3.5% OPH GEL PER APPLICATION CHARGE ONE; -LIDOCAINE HCL 1% MPF 2 ML VIAL ONE; -MIDAZOLAM HCL 1 MG/ML 2ML VIAL ONE; -POVIDONE-IODINE OP SOLN 30 ML BTL ONE; -PROPARACAINE 0.5% OP SOLN PER DROP CHARGE OPR SCH; -TOBRAMYCIN/DEXAMETHASONE OPH OINT PER APPLN CHARGE ONE
[2017-03-09 14:39] VITALS: BP 144/77; PULSE 71; Ht 177.8 cm; Wt 118.1 kg
== END | disposition home or self-care (01) ==
LOC: C.NEUR 14:17
PROVIDERS: ATTEND Internal Medicine Pulmonary Disease
DX: G47.33 Obstructive sleep apnea (adult) (pediatric) (principal); E66.9 Obesity, unspecified

== ENCOUNTER → 2017-06-29 | Outpatient (CLI) | payer OTHER ==
[2017-06-29 12:53] LABS: HEMOGLOBIN A1C 7.7 % (4.5-5.6)
[2017-06-29 12:54] LABS: ALT/SGPT 31 U/L (12-78); AST/SGOT 16 U/L (15-37); BLOOD UREA NITROGEN 19 mg/dl (7-18); CALCIUM 8.8 mg/dl (8.5-10.1); CARBON DIOXIDE 31 mmol/L (21-32); CREATININE 1.11 mg/dl (0.60-1.40); GLUCOSE 141 mg/dl (70-99); POTASSIUM 3.8 mmol/L (3.5-5.1); SODIUM 139 mmol/L (136-145)
[2017-06-29 12:59] LABS: LDL CHOLESTEROL (DIRECT) 81 mg/dl
== END | disposition home or self-care (01) ==
LOC: C.LABBFT 10:28
PROVIDERS: ATTEND Nurse Practitioner Adult Health
DX: E11.29 Type 2 diabetes mellitus with other diabetic kidney complication (principal); E78.5 Hyperlipidemia, unspecified

== ENCOUNTER 2017-10-19 15:23 | Observation (INO) | payer OTHER ==
[~2017-10-19] VITALS: Ht 177.8 cm; Wt 108.9 kg
[~2017-10-19 15:23] MED LIST changes: -ATOR-24 PO; +ATOR-26 PO; +CHOL2000 PO; -ERGO500037 PO; +GLC/500 PO; -INSDGI SC; +INSDGIPEN SC; +MULT-190 PO; +PLV75 PO; +PRED1SUS17 OP
[2017-10-19] MEDS ORDERED: SODIUM CHLORIDE 0.9% 500ML 500 ML IV STA (15:47)
--- NOTE | 2017-10-19 15:50 | EMERGENCY ROOM VISIT NOTE ---
History Report prepared by Edgardo: Oracio Hodges Under the Supervision of: Dr. Karson Tellez M.D. 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 He does not remember the entire episode. He arrived with his blood pressure at 102/58, but claims he feels better now than he did at the auto painter helper. The patient denies chest pain. The patient states he ate breakfast today but did not drink much water. He was discharged from rehab about a week ago and also has a history of stroke that occurred while he was at [facility]. Denies CP, SOB, n/v, MAYO, dizziness, f/c, cough/congestion, urinary symptoms. 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 A total of ten systems were reviewed and were otherwise negative. Past Medical & Surgical Medical Problems: (1) Benign prostatic hyperplasia (2) CAD (coronary artery disease) (3) Diabetes mellitus type 2 (4) Essential hypertension (5) Gouty arthropathy (6) Hyperlipidemia (7) Lightheaded (8) Neoplasm of parotid gland Family History Patient reports no known family medical history. Social History Smoking Status: Never Smoker Alcohol Use: none Drug Use: none Marital Status: Occupation Status: retired Current/Historical Medications Scheduled Allopurinol (Zyloprim), 300 MG PO QAM Amlodipine (Norvasc), 5 MG PO DAILY Aspirin (Aspirin Ec), 81 MG PO QPM Atorvastatin (Lipitor), 80 MG PO DAILY Carvedilol (Coreg), 25 MG PO BIDM Cholecalciferol (Vitamin D3), 1 CAP PO DAILY Clopidogrel Bisulfate (Clopidogrel), 75 MG PO QAM Finasteride (Proscar), 5 MG PO QAM Fish Oil ([place]-3), 1 CAP PO BID Furosemide (Lasix), 20 MG PO QAM Insulin Glargine (Lantus Solostar), 35 UNITS SC BID Losartan Potassium (Cozaar), 25 MG PO DAILY Metformin Hcl (Glucophage), 500 MG PO DAILY AT DINNER Metformin Hcl (Glucophage), 1,000 MG PO DAILY AT BREAKFAST Ocuvite Preservision (Ocuvite Preservision), 2 TAB PO DAILY Prednisolone Acetate (Ophth) (Prednisolone Acetate), 1 DROPS OP QID Allergies Coded Allergies: No Known Allergies (Verified , 10/19/17) Physical Exam Vital Signs Date Time Temp Pulse Resp B/P (MAP) Pulse Ox O2 Delivery O2 Flow Rate FiO2 10/19/17 19:33 73 18 124/59 100 Nasal Cannula 4.0 10/19/17 18:48 98 Nasal Cannula 4.0 10/19/17 18:48 75 18 115/57 79 Room Air 10/19/17 18:06 75 18 113/57 97 Room Air 10/19/17 17:28 81 18 129/75 96 Room Air 10/19/17 16:37 78 18 120/60 99 Nasal Cannula 2.0 10/19/17 16:05 73 10/19/17 15:54 100 Nasal Cannula 2.0 10/19/17 15:50 112/67 10/19/17 15:32 36.7 67 20 102/58 100 Mask 15.0 Physical Exam GENERAL: Awake, alert, fatigued and uncomfortable looking HENT: Normocephalic, atraumatic. Oropharynx unremarkable. Mucous membranes are dry. EYES: Normal conjunctiva. Sclera non-icteric. NECK: Supple. No nuchal rigidity. FROM. No JVD. RESPIRATORY: Clear to auscultation. CARDIAC: Regular rate, normal rhythm. Extremities warm and well perfused. Pulses equal. ABDOMEN: Soft, non-distended. No tenderness to palpation. No rebound or guarding. No masses. RECTAL: Deferred. MUSCULOSKELETAL: Chest examination reveals no tenderness. The back is symmetrical on inspection without obvious abnormality. There is no CVA tenderness to palpation. No joint edema. Strength is 5/5 in all four extremities LOWER EXTREMITIES: Calves are equal size bilaterally and non-tender. No edema. No discoloration. NEURO: Normal sensorium. No sensory or motor deficits noted. Normal cerebellar function with [id number] and [id number] SKIN: No rash or jaundice noted. Cool, pale. Medical Decision & Procedures ER Provider Diagnostic Interpretation: Radiology results as stated below per my review and radiologist interpretation: CHEST ONE VIEW PORTABLE CLINICAL HISTORY: 77 years-old Male presenting with hypotensive, syncope. TECHNIQUE: Portable semiupright AP view of the chest was obtained. COMPARISON: 08/08/2017. FINDINGS: Atherosclerosis of the aortic arch. Cardiac silhouette top normal in size. Calcified granuloma suggested at the right lung base. No focal opacity. No pleural effusion or pneumothorax. Degenerative changes of the thoracic spine. Cholecystectomy clips noted. IMPRESSION: 1. No acute cardiopulmonary disease. Electronically signed by: Will Hanley M.D. 10/19/2017 3:56 PM Dictated Date/Time: 10/19/2017 3:55 PM CHEST COMBO ANGIO DISSECTION HISTORY: 77 years-old Male acute syncope with hypotension. History of thoracic aortic dissection. COMPARISON: Chest radiograph of same day, CTA abdomen/pelvis 10/19/2017 TECHNIQUE: CTA of the chest was obtained both with and without the use of 1 19 mL Optiray 320 IV contrast. 3-D coronal and sagittal MIPS were obtained from the axial data set and were submitted for review. All measurements were obtained according to NASCET criteria. A dose lowering technique was used consistent with the principals of GISSEL. FINDINGS: CTA CHEST: The heart is upper limits of normal in size without pericardial effusion. The noncontrast scan demonstrates no intramural hematoma of the aorta. Extensive three-vessel distribution of coronary arterial calcifications are noted. Moderate calcified plaque formation about the thoracic aorta. Majority of the contrast bolus is noted within the left brachiocephalic vein and SVC secondary to contrast bolus timing. Thoracic aorta demonstrates no aneurysm or definite dissection. The hardening artifact from positioning of the patient's upper extremities limits evaluation of the descending thoracic aorta. The imaged great vessels appear patent. The opacified pulmonary arterial tree is unremarkable. CT CHEST: Mildly heterogeneous appearance of the thyroid. No pathologically enlarged lymph nodes of the chest identified. No pneumothorax or pleural effusion. Mild bilateral intralobular septal thickening within a mid and upper lung zone predominant distribution is noted. Additionally, there are bilateral subsegmental groundglass densities. There is mild dependent subsegmental bibasilar atelectasis. There is irregular soft tissue attenuating 1.5 x 1.3 x 1.8 cm nodule of the left upper lobe, image 80 series 11 with 1.0 x 1.2 x 1.3 cm nodule of the anterior segment left upper lobe, image 86 series 11. Both of these nodules demonstrate adjacent linear subsegmental consolidative densities suggesting associated scarring/atelectasis. Rotator cuff calcific granuloma of the apical posterior segment left upper lobe. 7 mm solid pleural-based nodule of the inferior segment lingula on image 150 series 11. Mild thickening of the bronchovascular bundles. No suspicious nodules about the right lung. No acute process of the imaged upper abdomen. Prior cholecystectomy. Soft tissues are within normal limits. The bones appear intact. No suspicious lytic or blastic bony lesions. IMPRESSION: 1. There are 3 total suspicious nodules about the left upper lobe and lingula as detailed above, the largest of which measures up to 1.8 cm within the left upper lobe, very suspicious for neoplasm. 2. Suggested mild pulmonary edema with minimal subsegmental bibasilar atelectasis. 3. No aortic aneurysm or dissection identified. 4. No adenopathy. The above report was generated using voice recognition software. It may contain grammatical, syntax or spelling errors. Electronically signed by: Je Cowan M.D. 10/19/2017 4:48 PM Dictated Date/Time: 10/19/2017 4:35 PM ANGIO ABD/PELVIS WITH CONTRAST CLINICAL HISTORY: 77 years-old Male with presents with acute syncope and hypotension with history of prior aortic dissection COMPARISON STUDY: CTA chest of same day TECHNIQUE: Following the IV administration of 119 cc of Optiray 320, CT angiogram of the abdomen and pelvis was performed from the lung bases the proximal femora. Images are reviewed in the axial, sagittal, and coronal planes. 3-D MIPS images are created and assessed. IV contrast was administered without complication. A dose lowering technique was utilized adhering to the principles of ALARA. All measurements were obtained according to NASCET criteria. FINDINGS: CTA ABDOMEN/PELVIS. Extensive mixed plaque formation about the abdominal aorta and proximal branch vessels, most pronounced within the infrarenal abdominal aorta. No aortic aneurysm or dissection identified. The bilateral iliac arteries are patent. Plaque formation at the origin the bilateral renal arteries without high-grade stenosis. The celiac trunk, superior and inferior mesenteric arteries are widely patent. No dissection, high-grade stenosis or proximal branch occlusion identified. CT ABDOMEN/PELVIS: Please see separately dictated CTA of the chest of same day for discussion of the pulmonary findings and findings about the lower chest. No pneumatosis or pneumoperitoneum identified. Prior cholecystectomy. The liver, spleen, pancreas and adrenal glands are unremarkable. Mild nonspecific bilateral perinephric stranding. No renal calculi or obstructive uropathy. Prostamegaly with mild wall thickening and partial distention of the bladder. No pathologically enlarged lymph nodes identified. There is a suggested small diverticulum about the proximal duodenum. Mild hyperattenuating material about the dependent proximal gastric lumen. No bowel obstruction or focal bowel wall thickening. Colonic diverticulosis without diverticulitis. The appendix appears to be unremarkable. No ascites or mesenteric inflammatory changes. Soft tissues are within normal limits. Bones appear intact. No suspicious lytic or blastic bony lesions. Multilevel spondylitic spurring and facet arthropathy. IMPRESSION: 1. Extensive mixed plaque formation about the abdominal aorta and proximal branch vessels without aneurysm, dissection, high-grade stenosis or proximal branch occlusion identified. 2. No bowel obstruction or focal bowel wall thickening. 3. Colonic diverticulosis without diverticulitis. 4. Prostamegaly. 5. Additional findings as above. The above report was generated using voice recognition software. It may contain grammatical, syntax or spelling errors. Electronically signed by: Je Cowan M.D. 10/19/2017 4:58 PM Dictated Date/Time: 10/19/2017 4:48 PM HEAD WITHOUT CONTRAST (CT) CLINICAL HISTORY: 77 years-old Male with syncope. Acute syncope TECHNIQUE: Multiple axial CT images of the head were obtained without contrast. A dose lowering technique was utilized adhering to the principles of ALARA. COMPARISON: None. FINDINGS: No acute intracranial hemorrhage, midline shift, intracranial mass, hydrocephalus, territorial ischemia or abnormal extra-axial collection. Mild atrophy. Ill-defined areas of low-attenuation about the periventricular and subcortical white matter suggest chronic microvascular ischemic changes. Remote lacunar infarctions about the caudate nuclei. Senescent calcifications of the basal ganglia. Cerebral vascular calcifications are noted. The calvarium is intact. The paranasal sinuses, mastoid air cells, and middle ear cavities are clear. Prior bilateral cataract repair. IMPRESSION: No acute intracranial abnormality. The above report was generated using voice recognition software. It may contain grammatical, syntax or spelling errors. Electronically signed by: Je Cowan M.D. 10/19/2017 4:35 PM Dictated Date/Time: 10/19/2017 4:26 PM Laboratory Results 10/19/17 15:35 Red Blood Count 3.99, Mean Corpuscular Volume 78.2, Mean Corpuscular Hemoglobin 24.6, Mean Corpuscular Hemoglobin Concent 31.4, Mean Platelet Volume 9.2, Neutrophils (%) (Auto) 63.1, Lymphocytes (%) (Auto) 24.5, Monocytes (%) (Auto) 5.6, Eosinophils (%) (Auto) 5.7, Basophils (%) (Auto) 0.3, Neutrophils # (Auto) 4.88, Lymphocytes # (Auto) 1.89, Monocytes # (Auto) 0.43, Eosinophils # (Auto) 0.44, Basophils # (Auto) 0.02 10/19/17 15:35 Test 10/19/17 15:35 10/19/17 15:41 10/19/17 19:42 White Blood Count 7.72 K/uL (4.8-10.8) Red Blood Count 3.99 M/uL (4.7-6.1) Hemoglobin 9.8 g/dL (14.0-18.0) Hematocrit 31.2 % (42-52) Mean Corpuscular Volume 78.2 fL (80-100) Mean Corpuscular Hemoglobin 24.6 pg (25-34) Mean Corpuscular Hemoglobin Concent 31.4 g/dl (32-36) Platelet Count 216 K/uL (130-400) Mean Platelet Volume 9.2 fL (7.4-10.4) Neutrophils (%) (Auto) 63.1 % Lymphocytes (%) (Auto) 24.5 % Monocytes (%) (Auto) 5.6 % Eosinophils (%) (Auto) 5.7 % Basophils (%) (Auto) 0.3 % Neutrophils # (Auto) 4.88 K/uL (1.4-6.5) Lymphocytes # (Auto) 1.89 K/uL (1.2-3.4) Monocytes # (Auto) 0.43 K/uL (0.11-0.59) Eosinophils # (Auto) 0.44 K/uL (0-0.5) Basophils # (Auto) 0.02 K/uL (0-0.2) RDW Standard Deviation 48.9 fL (36.4-46.3) RDW Coefficient of Variation 17.1 % (11.5-14.5) Immature Granulocyte % (Auto) 0.8 % Immature Granulocyte # (Auto) 0.06 K/uL (0.00-0.02) Prothrombin Time 10.7 SECONDS (9.0-12.0) Prothromb Time International Ratio 1.0 (0.9-1.1) Activated Partial Thromboplast Time 25.7 SECONDS (21.0-31.0) Partial Thromboplastin Ratio 1.0 Est Creatinine Clear Calc Drug Dose 53.9 ml/min Estimated GFR () 53.1 Estimated GFR (Non- 45.8 BUN/Creatinine Ratio 22.2 (10-20) Calcium Level 8.4 mg/dl (8.5-10.1) Total Bilirubin 0.3 mg/dl (0.2-1) Direct Bilirubin < 0.1 mg/dl (0-0.2) Aspartate Amino Transf (AST/SGOT) 12 U/L (15-37) Alanine Aminotransferase (ALT/SGPT) 26 U/L (12-78) Alkaline Phosphatase 60 U/L (45-117) Troponin I 0.015 ng/ml (0-0.045) Pro-B-Type Natriuretic Peptide 1227 pg/ml (0-1800) Total Protein 6.9 gm/dl (6.4-8.2) Albumin 2.8 gm/dl (3.4-5.0) Lipase 141 U/L (73-393) Bedside Hemoglobin 10.2 g/dl (14.0-18.0) Bedside Hematocrit 30 % (42-52) Bedside Sodium 140 mEq/L (135-144) Bedside Potassium 4.2 mEq/L (3.3-5.0) Bedside Chloride 98 mEq/L (101-112) Bedside Total CO2 28 mEq/l (24-31) Anion Gap 19.0 mmol/L (16-25) Bedside Blood Urea Nitrogen 30 mg/dl (7-18) Bedside Creatinine 1.3 mg/dl (0.6-1.3) Bedside Glucose (other) 102 mg/dl (70-99) Bedside Ionized Calcium ([place]) 1.15 mmol/l (1.12-1.32) Bedside Troponin I < 0.030 ng/ml (0-0.045) Laboratory results reviewed by me Medications Administered Medications (Trade) Dose Ordered Sig/Woody Route Start Time Stop Time Status Last Admin Dose Admin Sodium Chloride 500 ml @ 999 mls/hr Q31M STAT IV 10/19/17 15:47 10/19/17 16:17 DC 10/19/17 15:55 999 MLS/HR Sodium Chloride 1,000 ml @ 999 mls/hr Q1H1M STAT IV 10/19/17 16:28 10/19/17 17:28 DC 10/19/17 16:40 999 MLS/HR ECG Per My Interpretation Indication: syncope Rate (beats per minute): 64 Rhythm: normal sinus Findings: RBBB, no acute ischemic change ED Course 153: The patient was evaluated in room B1. A complete history and physical exam was performed. 1557: I reevaluated the patient and spoke with his family. 1729: Upon reexamination, the patient was resting in bed. I discussed the test results and treatment plan with Dr. Knapp -[facility]. The patient will be evaluated for further management by him. Medical Decision I reviewed the patient's past medical history, medications, and the nursing notes as described above. Differential diagnosis: Etiologies such as vasovagal event, infection, hypoglycemia, electrolyte abnormalities, cardiac sources, intracerebral event, toxicologic, neurologic, as well as others were entertained. The patient is a 69-year-old gentleman with a past medical history of CAD with complicated recent hospital course including identification of multivessel disease with PCI on September 05 with subsequent repeat catheterization 09/17 to address residual disease complicated by ostial circumflex dissection into the aorta with subsequent heart failure/respiratory failure requiring intubation and emergent transfer to [facility] for CT surgery evaluation, patient was managed medically at [facility] during his admission, discharged to rehab, and discharged to home 2 days ago now presents to emergency department after having syncopal episode with profound hypotension when going to his cardiology follow-up appointment per hpi. I discussed the case with Dr. Singh, cardiology, was evaluating the patient when he became diaphoretic and syncopized with systolic blood pressure in the 60s. He was subsequently responsive upon IV fluid bolus transferred via EMS to the ED. Of note, patient was without any complaints since his discharge from rehab and saw his PCP this morning without difficulty. He does report minimal p.o. intake today given his multiple doctor's appointments. Denies any preceding CP or SOB prior to his syncopal episode. On arrival the patient is ill-appearing heart rate in the 60s, systolic blood pressure 100s. On exam the patient is neuro intact with 5/5 strength in all 4 extremities. EKG demonstrating right bundle branch block without evidence of acute ischemia. Chest x-ray unremarkable. Bedside ultrasound demonstrated IVC that was 100% variable with respirations, suggesting volume depletion. Initial troponin negative. Creatinine demonstrating CORTNEY with Cr. 1.45, BUN/creatinine > 20, suggesting prerenal etiology. Given the patient's prior complications with dissection involving the aorta CTA was performed and was negative for acute aortic pathology. CT head negative. Patient continued to have improvement with IV fluid hydration. Dr. Vogt, at the bedside meeting with patient and we agree it is reasonable to admit the patient for further hydration and possible adjustment of his antihypertensives. Case was discussed with Dr. Knapp , [facility] hospitalist, who will evaluate the patient for further management. Medication Reconcilliation Current Medication List: was personally reviewed by me Blood Pressure Screening Patient's blood pressure: Normal blood pressure Consults Time Called: 1728 Consulting Physician: Dr. Knapp - [facility] Returned Call: 1730 I discussed the patient with Dr. Aria Simon [facility]. He will evaluate the patient for further treatment. Impression Primary Impression: Syncope Additional Impression: CORTNEY (acute kidney injury) Critical Care I have personally spent greater than 35 minutes of critical care time in the direct management of this patient. This includes bedside care, interpretation of diagnostic studies, and testing, discussion with consultants, patient, and family members, and other required patient management activities. This 35 minutes is in excess of all separately billable procedures. Scribe Attestation The scribe's documentation has been prepared under my direction and personally reviewed by me in its entirety. I confirm that the note above accurately reflects all work, treatment, procedures, and medical decision making performed by me. Departure Information Dispostion Being Evaluated By Hospitalist Referrals Elmer Tobar M.D. (PCP) Forms HOME CARE DOCUMENTATION FORM, IMPORTANT VISIT INFORMATION, WORK / SCHOOL INSTRUCTIONS Patient Instructions My [facility] Problem Qualifiers
[2017-10-19 15:55] LABS: ISTAT CREATININE 1.3 mg/dl (0.6-1.3); ISTAT IONIZED CALCIUM 1.15 mmol/l (1.12-1.32); ISTAT POTASSIUM 4.2 mEq/L (3.3-5.0)
--- NOTE | 2017-10-19 15:58 | DIAGNOSTIC IMAGING REPORT ---
CHEST ONE VIEW PORTABLE CLINICAL HISTORY: 77 years-old Male presenting with hypotensive, syncope. TECHNIQUE: Portable semiupright AP view of the chest was obtained. COMPARISON: 08/08/2017. FINDINGS: Atherosclerosis of the aortic arch. Cardiac silhouette top normal in size. Calcified granuloma suggested at the right lung base. No focal opacity. No pleural effusion or pneumothorax. Degenerative changes of the thoracic spine. Cholecystectomy clips noted. IMPRESSION: 1. No acute cardiopulmonary disease. Electronically signed by: Will Hanley M.D. 10/19/2017 3:56 PM Dictated Date/Time: 10/19/2017 3:55 PM
[2017-10-19] MEDS ORDERED: OPTIRAY 320 IV PRN (16:00)
[2017-10-19 16:05] LABS: BASO % 0.3 %; BASO ABS # 0.02 K/uL (0-0.2); EOS % 5.7 %; EOS ABS # 0.44 K/uL (0-0.5); HEMATOCRIT 31.2 % (42-52); HEMOGLOBIN 9.8 g/dL (14.0-18.0); IG# 0.06 K/uL (0.00-0.02); LYMPH % 24.5 %; LYMPH ABS # 1.89 K/uL (1.2-3.4); MEAN CELL VOLUME 78.2 fL (80-100); MEAN CORPUSCULAR HEMOGLOBIN 24.6 pg (25-34); MEAN CORPUSCULAR HGB CONC 31.4 g/dl (32-36); MEAN PLATELET VOLUME 9.2 fL (7.4-10.4); MONO % 5.6 %; MONO ABS # 0.43 K/uL (0.11-0.59); NEUT % 63.1 %; NEUT ABS # 4.88 K/uL (1.4-6.5); PLATELET COUNT 216 K/uL (130-400); RED CELL DISTRIBUTION WIDTH CV 17.1 % (11.5-14.5); RED CELL DISTRIBUTION WIDTH SD 48.9 fL (36.4-46.3); WHITE BLOOD COUNT 7.72 K/uL (4.8-10.8)
[2017-10-19 16:16] LABS: PTT PATIENT 25.7 SECONDS (21.0-31.0)
[2017-10-19 16:18] LABS: ALBUMIN 2.8 gm/dl (3.4-5.0); ALKALINE PHOSPHATASE 60 U/L (45-117); ALT/SGPT 26 U/L (12-78); AST/SGOT 12 U/L (15-37); BLOOD UREA NITROGEN 32 mg/dl (7-18); CALCIUM 8.4 mg/dl (8.5-10.1); CARBON DIOXIDE 26 mmol/L (21-32); CREATININE 1.45 mg/dl (0.60-1.40); GLUCOSE 97 mg/dl (70-99); LIPASE 141 U/L (73-393); POTASSIUM 4.2 mmol/L (3.5-5.1); SODIUM 138 mmol/L (136-145); TOTAL PROTEIN 6.9 gm/dl (6.4-8.2)
[2017-10-19] MEDS ORDERED: SODIUM CHLORIDE 0.9% 1000ML 1,000 ML IV STA (16:28)
--- NOTE | 2017-10-19 16:36 | DIAGNOSTIC IMAGING REPORT ---
HEAD WITHOUT CONTRAST (CT) CLINICAL HISTORY: 77 years-old Male with syncope. Acute syncope TECHNIQUE: Multiple axial CT images of the head were obtained without contrast. A dose lowering technique was utilized adhering to the principles of ALARA. COMPARISON: None. FINDINGS: No acute intracranial hemorrhage, midline shift, intracranial mass, hydrocephalus, territorial ischemia or abnormal extra-axial collection. Mild atrophy. Ill-defined areas of low-attenuation about the periventricular and subcortical white matter suggest chronic microvascular ischemic changes. Remote lacunar infarctions about the caudate nuclei. Senescent calcifications of the basal ganglia. Cerebral vascular calcifications are noted. The calvarium is intact. The paranasal sinuses, mastoid air cells, and middle ear cavities are clear. Prior bilateral cataract repair. IMPRESSION: No acute intracranial abnormality. The above report was generated using voice recognition software. It may contain grammatical, syntax or spelling errors. Electronically signed by: Je Cowan M.D. 10/19/2017 4:35 PM Dictated Date/Time: 10/19/2017 4:26 PM
--- NOTE | 2017-10-19 16:50 | DIAGNOSTIC IMAGING REPORT ---
CHEST COMBO ANGIO DISSECTION HISTORY: 77 years-old Male acute syncope with hypotension. History of thoracic aortic dissection. COMPARISON: Chest radiograph of same day, CTA abdomen/pelvis 10/19/2017 TECHNIQUE: CTA of the chest was obtained both with and without the use of 1 19 mL Optiray 320 IV contrast. 3-D coronal and sagittal MIPS were obtained from the axial data set and were submitted for review. All measurements were obtained according to NASCET criteria. A dose lowering technique was used consistent with the principals of GISSEL. FINDINGS: CTA CHEST: The heart is upper limits of normal in size without pericardial effusion. The noncontrast scan demonstrates no intramural hematoma of the aorta. Extensive three-vessel distribution of coronary arterial calcifications are noted. Moderate calcified plaque formation about the thoracic aorta. Majority of the contrast bolus is noted within the left brachiocephalic vein and SVC secondary to contrast bolus timing. Thoracic aorta demonstrates no aneurysm or definite dissection. The hardening artifact from positioning of the patient's upper extremities limits evaluation of the descending thoracic aorta. The imaged great vessels appear patent. The opacified pulmonary arterial tree is unremarkable. CT CHEST: Mildly heterogeneous appearance of the thyroid. No pathologically enlarged lymph nodes of the chest identified. No pneumothorax or pleural effusion. Mild bilateral intralobular septal thickening within a mid and upper lung zone predominant distribution is noted. Additionally, there are bilateral subsegmental groundglass densities. There is mild dependent subsegmental bibasilar atelectasis. There is irregular soft tissue attenuating 1.5 x 1.3 x 1.8 cm nodule of the left upper lobe, image 80 series 11 with 1.0 x 1.2 x 1.3 cm nodule of the anterior segment left upper lobe, image 86 series 11. Both of these nodules demonstrate adjacent linear subsegmental consolidative densities suggesting associated scarring/atelectasis. Rotator cuff calcific granuloma of the apical posterior segment left upper lobe. 7 mm solid pleural-based nodule of the inferior segment lingula on image 150 series 11. Mild thickening of the bronchovascular bundles. No suspicious nodules about the right lung. No acute process of the imaged upper abdomen. Prior cholecystectomy. Soft tissues are within normal limits. The bones appear intact. No suspicious lytic or blastic bony lesions. IMPRESSION: 1. There are 3 total suspicious nodules about the left upper lobe and lingula as detailed above, the largest of which measures up to 1.8 cm within the left upper lobe, very suspicious for neoplasm. 2. Suggested mild pulmonary edema with minimal subsegmental bibasilar atelectasis. 3. No aortic aneurysm or dissection identified. 4. No adenopathy. The above report was generated using voice recognition software. It may contain grammatical, syntax or spelling errors. Electronically signed by: Je Cowan M.D. 10/19/2017 4:48 PM Dictated Date/Time: 10/19/2017 4:35 PM
[2017-10-19] MEDS ORDERED: CARV25TA2 PO (16:59)
[2017-10-19] MEDS ORDERED: LOSA1TAB PO (16:59)
[2017-10-19] MEDS ORDERED: AMLO5TAB3 PO (16:59)
[2017-10-19] MEDS ORDERED: METF-384 PO (16:59)
--- NOTE | 2017-10-19 16:59 | DIAGNOSTIC IMAGING REPORT ---
ANGIO ABD/PELVIS WITH CONTRAST CLINICAL HISTORY: 77 years-old Male with presents with acute syncope and hypotension with history of prior aortic dissection COMPARISON STUDY: CTA chest of same day TECHNIQUE: Following the IV administration of 119 cc of Optiray 320, CT angiogram of the abdomen and pelvis was performed from the lung bases the proximal femora. Images are reviewed in the axial, sagittal, and coronal planes. 3-D MIPS images are created and assessed. IV contrast was administered without complication. A dose lowering technique was utilized adhering to the principles of ALARA. All measurements were obtained according to NASCET criteria. FINDINGS: CTA ABDOMEN/PELVIS. Extensive mixed plaque formation about the abdominal aorta and proximal branch vessels, most pronounced within the infrarenal abdominal aorta. No aortic aneurysm or dissection identified. The bilateral iliac arteries are patent. Plaque formation at the origin the bilateral renal arteries without high-grade stenosis. The celiac trunk, superior and inferior mesenteric arteries are widely patent. No dissection, high-grade stenosis or proximal branch occlusion identified. CT ABDOMEN/PELVIS: Please see separately dictated CTA of the chest of same day for discussion of the pulmonary findings and findings about the lower chest. No pneumatosis or pneumoperitoneum identified. Prior cholecystectomy. The liver, spleen, pancreas and adrenal glands are unremarkable. Mild nonspecific bilateral perinephric stranding. No renal calculi or obstructive uropathy. Prostamegaly with mild wall thickening and partial distention of the bladder. No pathologically enlarged lymph nodes identified. There is a suggested small diverticulum about the proximal duodenum. Mild hyperattenuating material about the dependent proximal gastric lumen. No bowel obstruction or focal bowel wall thickening. Colonic diverticulosis without diverticulitis. The appendix appears to be unremarkable. No ascites or mesenteric inflammatory changes. Soft tissues are within normal limits. Bones appear intact. No suspicious lytic or blastic bony lesions. Multilevel spondylitic spurring and facet arthropathy. IMPRESSION: 1. Extensive mixed plaque formation about the abdominal aorta and proximal branch vessels without aneurysm, dissection, high-grade stenosis or proximal branch occlusion identified. 2. No bowel obstruction or focal bowel wall thickening. 3. Colonic diverticulosis without diverticulitis. 4. Prostamegaly. 5. Additional findings as above. The above report was generated using voice recognition software. It may contain grammatical, syntax or spelling errors. Electronically signed by: Je Cowan M.D. 10/19/2017 4:58 PM Dictated Date/Time: 10/19/2017 4:48 PM
--- NOTE | 2017-10-19 18:28 | History and Physical ---
History & Physical Date & Time of Service: Oct 19, 2017 at 18:10 Chief Complaint: Cardiac Assessment Primary Care Physician: Elmer Tobar M.D. History of Present Illness Source: patient, other 77 y/o M Hx HTN, HPL, DM II, gout, KEN, obesity, CAD - NSTEMI 07/2017 - recent complex history as below. He is currently under the care of [facility] cardiology. The pt was on route to the director of vocational guidance's office and reports that he felt as though he was car sick on the ride over. He became increasingly lightheaded and diaphoretic after arriving at the office and then suffered a syncopal episode where he was notably hypotensive. He responded to a fluid bolus and was directed to the ER. It is thought that his symptoms may be related to recent antihypertensive prescriptions. He denies any CP or SOB. An EKG was obtained at the cardiology office and then on again on arrival to the ER. No acute abnormalities were noted. An initial troponin is negative. Labs are otherwise consistent with dehydration, mild ARF and mild lactic elevation. Briefly: The pt underwent catheterization 09/05 resulting in a stent to the R-PDA. He developed CP and acute SOB again 09/17 requiring emergent intubation due to respiratory failure on arrival to the ER. An additional cath was undertaken revealing an ostial circumflex dissection extending into the aorta above the aortic cusps, compromising a separate ostium of the LAD. He received 2 additional stents to the circumflex/OM2 and to the LAD. The pt was promptly transferred [place] [facility] [place] remained for a month. He was in critical condition for an extended period. His dissection clotted without intervention and he was eventually discharged. Past Medical/Surgical History 1) HTN 2) HPL 3) Obesity 4) DM II 5) Gout 6) Parotid CA 7) KEN - CPAP 8) RBBB 9) CAD - circumflex artery dissection Cath 09/05 Successful PCI of R-PDA with single drug-eluting stent. Cath 09/17 1. 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 2. Heart failure/respiratory failure requiring intubation and diuretics 3. PCI of ostial circumflex into distal circumflex/OM2 with 3 overlapping NEVAEH ( 3.0 x 18, 2.5 x 23, 2.25 x 28).- POBA to ostium of high OM1 4. PCI of separate LAD ostium with 2.5 x 18 NEVAEH. Family History Patient reports no known family medical history. Noncontributory Social History Smoking Status: Never Smoker Drug Use: none Marital Status: Housing status: lives with family Occupational Status: retired Immunizations History of Influenza Vaccine: N/A History of Tetanus Vaccine?: Yes History of Pneumococcal: No History of Hepatitis B Vaccine: No Allergies Coded Allergies: No Known Allergies (Verified , 10/19/17) Home Medications Scheduled Allopurinol (Zyloprim), 300 MG PO QAM Amlodipine (Norvasc), 5 MG PO DAILY Aspirin (Aspirin Ec), 81 MG PO QPM Atorvastatin (Lipitor), 80 MG PO DAILY Carvedilol (Coreg), 25 MG PO BIDM Cholecalciferol (Vitamin D3), 1 CAP PO DAILY Clopidogrel Bisulfate (Clopidogrel), 75 MG PO QAM Finasteride (Proscar), 5 MG PO QAM Fish Oil ([place]-3), 1 CAP PO BID Furosemide (Lasix), 20 MG PO QAM Insulin Glargine (Lantus Solostar), 35 UNITS SC BID Losartan Potassium (Cozaar), 25 MG PO DAILY Metformin Hcl (Glucophage), 500 MG PO DAILY AT DINNER Metformin Hcl (Glucophage), 1,000 MG PO DAILY AT BREAKFAST Ocuvite Preservision (Ocuvite Preservision), 2 TAB PO DAILY Prednisolone Acetate (Ophth) (Prednisolone Acetate), 1 DROPS OP QID Review of Systems Constitutional: + sweats, + weakness, + fatigue, No fever, No chills Eyes: No worsening of vision ENT: No hearing loss, No unusual epistaxis, No nasal symptoms Respiratory: No cough Cardiovascular: No chest pain Abdomen: + nausea, No pain, No vomiting Musculoskeletal: No joint pain Genitourinary - Male: No hematuria, No dysuria Neurologic: + weakness, + problem reported (Syncope as above), No memory loss, No paralysis Psychiatric: No depression symptoms Endocrine: + fatigue Hematologic / Lymphatic: No abnormal bleeding/bruising Integumentary: No rash Allergic / Immunologic: No environmental allergies Physical Exam Vital Signs Date Time Temp Pulse Resp B/P (MAP) Pulse Ox O2 Delivery O2 Flow Rate FiO2 10/19/17 18:06 75 18 113/57 97 Room Air 10/19/17 17:28 81 18 129/75 96 Room Air 10/19/17 16:37 78 18 120/60 99 Nasal Cannula 2.0 10/19/17 16:05 73 10/19/17 15:54 100 Nasal Cannula 2.0 10/19/17 15:50 112/67 10/19/17 15:32 36.7 67 20 102/58 100 Mask 15.0 General Appearance: + pertinent finding (Pale-appearing, elderly male in no acute distress) Head: normocephalic Eyes: normal inspection ENT: normal ENT inspection, pharynx normal Neck: supple, no JVD Respiratory/Chest: chest non-tender, lungs clear, normal breath sounds Cardiovascular: regular rate, rhythm, no edema Abdomen/GI: normal bowel sounds, non tender, soft Back: normal inspection, no CVA tenderness Extremities/Musculoskelatal: normal inspection, no calf tenderness, normal capillary refill Neurologic/Psych: criminal court judge II-XII nml as tested, no motor/sensory deficits, alert, oriented x 3 Skin: + pallor Diagnostics Laboratory Results Results Past 24 Hours Test 10/19/17 15:35 10/19/17 15:41 10/19/17 16:01 Range/Units White Blood Count 7.72 4.8-10.8 K/uL Red Blood Count 3.99 4.7-6.1 M/uL Hemoglobin 9.8 14.0-18.0 g/dL Hematocrit 31.2 42-52 % Mean Corpuscular Volume 78.2 80-100 fL Mean Corpuscular Hemoglobin 24.6 25-34 pg Mean Corpuscular Hemoglobin Concent 31.4 32-36 g/dl Platelet Count 216 130-400 K/uL Mean Platelet Volume 9.2 7.4-10.4 fL Neutrophils (%) (Auto) 63.1 % Lymphocytes (%) (Auto) 24.5 % Monocytes (%) (Auto) 5.6 % Eosinophils (%) (Auto) 5.7 % Basophils (%) (Auto) 0.3 % Neutrophils # (Auto) 4.88 1.4-6.5 K/uL Lymphocytes # (Auto) 1.89 1.2-3.4 K/uL Monocytes # (Auto) 0.43 0.11-0.59 K/uL Eosinophils # (Auto) 0.44 0-0.5 K/uL Basophils # (Auto) 0.02 0-0.2 K/uL RDW Standard Deviation 48.9 36.4-46.3 fL RDW Coefficient of Variation 17.1 11.5-14.5 % Immature Granulocyte % (Auto) 0.8 % Immature Granulocyte # (Auto) 0.06 0.00-0.02 K/uL Prothrombin Time 10.7 9.0-12.0 SECONDS Prothromb Time International Ratio 1.0 0.9-1.1 Activated Partial Thromboplast Time 25.7 21.0-31.0 SECONDS Partial Thromboplastin Ratio 1.0 Sodium Level 138 136-145 mmol/L Potassium Level 4.2 3.5-5.1 mmol/L Chloride Level 102 98-107 mmol/L Carbon Dioxide Level 26 21-32 mmol/L Anion Gap 10.0 19.0 16-25 mmol/L Blood Urea Nitrogen 32 7-18 mg/dl Creatinine 1.45 0.60-1.40 mg/dl Est Creatinine Clear Calc Drug Dose 53.9 ml/min Estimated GFR () 53.1 Estimated GFR (Non- 45.8 BUN/Creatinine Ratio 22.2 10-20 Random Glucose 97 70-99 mg/dl Calcium Level 8.4 8.5-10.1 mg/dl Total Bilirubin 0.3 0.2-1 mg/dl Direct Bilirubin < 0.1 0-0.2 mg/dl Aspartate Amino Transf (AST/SGOT) 12 15-37 U/L Alanine Aminotransferase (ALT/SGPT) 26 12-78 U/L Alkaline Phosphatase 60 45-117 U/L Troponin I 0.015 0-0.045 ng/ml Pro-B-Type Natriuretic Peptide 1227 0-1800 pg/ml Total Protein 6.9 6.4-8.2 gm/dl Albumin 2.8 3.4-5.0 gm/dl Lipase 141 73-393 U/L Bedside Hemoglobin 10.2 14.0-18.0 g/dl Bedside Hematocrit 30 42-52 % Bedside Sodium 140 135-144 mEq/L Bedside Potassium 4.2 3.3-5.0 mEq/L Bedside Chloride 98 101-112 mEq/L Bedside Total CO2 28 24-31 mEq/l Bedside Blood Urea Nitrogen 30 7-18 mg/dl Bedside Creatinine 1.3 0.6-1.3 mg/dl Bedside Glucose (other) 102 70-99 mg/dl Bedside Ionized Calcium ([place]) 1.15 1.12-1.32 mmol/l Bedside Troponin I < 0.030 0-0.045 ng/ml Lactic Acid Level 2.1 0.4-2.0 mmol/L Diagnostic Radiology 1) 2) 3) CORTNEY - it is difficult to assess volume status due to his habitus. For now we have provided 1L of IVF and held his AM Lasix dose. Repeat BMP AM. 4) DM II - placed on SS and Lantus 5) HTN/HPL 6) Gout 7) KEN - to bring in pt's CPAP for HS use. EKG Sinus, RBBB - no acute change Impression Assessment and Plan 77 y/o M Hx HTN, HPL, DM II, gout, KEN, obesity, CAD - NSTEMI 07/2017 - recent complex history as below. He is currently under the care of [facility] cardiology. The pt was on route to the director of vocational guidance's office and reports that he felt as though he was car sick on the ride over. He became increasingly lightheaded and diaphoretic after arriving at the office and then suffered a syncopal episode where he was notably hypotensive. He responded to a fluid bolus and was directed to the ER. It is thought that his symptoms may be related to recent antihypertensive prescriptions. He denies any CP or SOB. An EKG was obtained at the cardiology office and then on again on arrival to the ER. No acute abnormalities were noted. An initial troponin is negative. Labs are otherwise consistent with dehydration, mild ARF and mild lactic elevation. 1) Syncope - possibly due to recent medications, dehydration and orthostasis. Considering his recent history, we would want to r/o an acute event however. He will be monitored on telemetry, we will trend enzymes and he can be reevaluated by his director of vocational guidance AM. 2) ARF - likely prerenal - IVF provided - Losartan, Norvasc, Carvedilol held pending AM reassessment. 3) CAD - recent NSTEMI - cont Statin, ASA, Plavix 4) DM II - placed on a sliding scale Full code - Heparin prophylaxis Total time for this admit including review of abs, meds, imaging, records - discussion with pt and ER attending - 45 min Resuscitation Status VTE Prophylaxis Will order VTE Prophylaxis: Yes
[2017-10-19] MEDS ORDERED: ALUMINUM/MAGNESIUM/SIMETH (MAALOX MAX) 30 ML UDC PO PRN (19:00)
[2017-10-19] MEDS ORDERED: ONDANSETRON INJ 2 MG/ML 2 ML VIAL IV PRN (19:00)
[2017-10-19] MEDS ORDERED: MoRPHine SULFATE 2 MG/ML CARP IV PRN (19:00)
[2017-10-19] MEDS ORDERED: MAGNESIUM HYDROXIDE SUSP 30 ML UDC PO PRN (19:00)
[2017-10-19] MEDS ORDERED: POLYETHYLENE (MIRALAX) 17 GM PACK PO PRN (19:00)
[2017-10-19] MEDS ORDERED: ACETAMINOPHEN 325 MG TAB PO PRN (19:00)
[2017-10-19] MEDS: SODIUM CHLORIDE 0.9% 1000ML 1,000 ML IV SCH ×2 (19:15→23:10)
[2017-10-19] MEDS ORDERED: IV FLUIDS COMPLETED PRN (19:30)
--- NOTE | 2017-10-19 19:56 | Cardiology Consultation ---
Cardiology Consultation Date of Consultation: Oct 19, 2017. Requesting Physician: Dr. Knapp Attending Physician: Dr. Knapp Reason for Consultation: Syncope and CAD Pt evaluation today including: conversation w/ patient, conversation w/ family , physical exam, chart review, lab review, review of studies, conversation w/ customer consultant (Dr. Tellez of the ER), review of inpatient medication list History of Present Illness Mr. 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 In July of 2017, he had a near syncopal episode after exercise and was hospitalized with a peak troponin 0.419. He preferred to be discharged home and have an outpatient ischemic evaluation which was performed on08/17/2017. Stress echo was abnormal with hypokinesis in the base to mid inferior wall. He also had abnormal exercise ECG findings. He preferred to postpone cardiac catheterization until after a family function [id number] and underwent coronary angiography on 09/05/2017. He was found to have severe CAD involving the OM2, PDA, and moderate to severe CAD involving the mid LAD. The LAD and circumflex system appeared to be small to medium in caliber. He underwent PCI of the PDA with a 2.25 x 15 mm NEVAEH. He then underwent another cardiac catheterization on 09/17/2017 to perform FFR of mid LAD with potential PCI of OM2. With engagement of the guide catheter, there was noted to be a dissection at the ostium of circumflex and extending into OM1 and mid segment. Aortic dissection was then noted extending above the cusps. PCI of the ostial circumflex was performed. Respiratory distress occurred he was intubated. Progression of dissection assume to cause limited flow in the LAD proximally and therefore LAD was stented with 2.5 x 18 mm NEVAEH. Distal circumflex/OM2 received 2 additional stents. CYDNEY 1 flow was present in the distal circumflex/ OM. He was [place] [facility] and [place] CT surgery. Medical therapy was recommended. CTA and taylor confirmed type a dissection/mural hematoma from the aortic annulus to the level of the pulmonary arteries. He had a prolonged hospital course, being discharged on 10/03/2017. He required esmolol drip an additional antihypertensive medications and was transition to knife therapy 90 mg, lisinopril 20 mg, and carvedilol 25 mg twice daily. He was also incidentally found have a pulmonary nodule with PET scan pending. Due to decreased responsiveness, he underwent brain imaging which demonstrated acute infarcts in the left cerebellar hemisphere and right middle frontal gyrus with chronic lacunar infarcts in the right basal ganglia/thalamus. Neurology did not believe that this was causing his mental status and in EEG was without seizure activity. ICU delirium was thought to be the cause of his mental status change. He eventually recovered was sent to rehab. He came to the office today for hospital follow-up. He was seen earlier in the day in his PCPs office in reportedly had a normal blood pressure. When he arrived at the cardiology outpatient clinic he was found to have a blood pressure of 76/48mmHg. He was able to ambulate down the hallway. He was conversive and reportedly had intermittent lightheadedness. Shortly after entering the room, during our conversation, he stated that he was beginning to feel lightheaded. He had a 2+ right radial pulse and while attempting to checked the blood pressure, he became unresponsive and had no obtainable blood pressure at that time. His pulse remained with heart rate approximately upper 50s to 70s. His oxygen saturation was 97 to 98% on room air. He remained unresponsive until after receiving some IV fluids. IV access was quickly established with normal saline administered. Glucose was 111. 911 was called and he was taken to the emergency department for further evaluation. He had denied chest pain, shortness of breath, nausea, vomiting, or bleeding such as melena, hematochezia, or hematuria. Family ( and daughter) confirmed that he had not been having any significant issues and was progressing at home since being discharged from rehab. He had not had any significant complaints and they state that these changes that were noted in the office were acute. No fevers or chills reported. Review of systems: As above. Review of systems otherwise negative or unobtainable due to patient's mental status. Past Medical/Surgical History 1. CAD status post PCI 2. PDA PCI 09/05/2017 with 2.25 x 15 mm Dagoberto NEVAEH. 3. Circumflex/OM and LAD PCI in the setting of coronary dissection 09/17/2017: Ostial circumflex into distal circumflex/OM2 with 3 overlapping NEVAEH (3 x 18, 2.5 x 23, 2.25 x 28). Ostial LAD 2.5 x 18 mm NEVAEH. 4. Type A aortic dissection during coronary angiography dissecting retrograde from coronary dissection on 09/17/2017. 5. Stroke 6. Hypertension 7. Dyslipidemia 8. Type 2 diabetes 9. Sleep apnea on CPAP QHS 10. Pulmonary nodule 11. 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 RBBB Family History Patient reports no known family medical history. No known premature CAD. Social History Quit smoking greater than 50 years ago. No alcohol or drugs. Lives at home with his . Three children. His daughter Marissa and accompany him. Allergies Coded Allergies: No Known Allergies (Verified , 10/19/17) Medications Current Inpatient Medications Medications (Trade) Dose Ordered Sig/Woody Route Start Time Stop Time Status Last Admin Dose Admin Ioversol (Optiray 320) 100 ml UD PRN IV 10/19/17 16:00 10/23/17 15:59 Heparin Sodium (Porcine) (Heparin Sq 5000 Unit/0.5ml) 5,000 unit Q8 SQ 10/19/17 22:00 11/18/17 21:59 UNV Acetaminophen (Tylenol Tab) 650 mg Q4H PRN PO 10/19/17 19:00 11/18/17 18:59 Al Hydrox/Mg Hydrox/Simethicone (Maalox Max Susp) 15 ml Q4H PRN PO 10/19/17 19:00 11/18/17 18:59 Magnesium Hydroxide (Milk Of Magnesia Susp) 30 ml Q12H PRN PO 10/19/17 19:00 11/18/17 18:59 Ondansetron HCl (Zofran Inj) 4 mg Q6H PRN IV 10/19/17 19:00 11/18/17 18:59 Morphine Sulfate (MoRPHine SULFATE INJ) 2 mg Q30M PRN IV 10/19/17 19:00 11/02/17 18:59 Polyethylene (Miralax Powder Packet) 17 gm DAILY PRN PO 10/19/17 19:00 11/18/17 18:59 Sodium Chloride 1,000 ml @ 125 mls/hr Q8H IV 10/19/17 19:15 11/18/17 19:14 UNV Allopurinol (Zyloprim Tab) 300 mg QAM PO 10/20/17 09:00 11/19/17 08:59 UNV Aspirin (Ecotrin Tab) 81 mg QPM PO 10/19/17 21:00 11/18/17 20:59 UNV Atorvastatin Calcium (Lipitor Tab) 80 mg DAILY PO 10/20/17 09:00 11/19/17 08:59 UNV Clopidogrel Bisulfate (plAVix TAB) 75 mg QAM PO 10/20/17 09:00 11/19/17 08:59 UNV Finasteride (Proscar Tab) 5 mg QAM PO 10/20/17 09:00 11/19/17 08:59 UNV Prednisolone Acetate (Pred Forte 1% Oph Susp) 1 drops QID OP 10/19/17 21:00 11/18/17 20:59 UNV Miscellaneous (Iv Fluids Completed) 1 ea PRN PRN N/A 10/19/17 19:30 10/19/18 19:29 UNV Physical Exam Vital Signs Past 12 Hours Date Time Temp Pulse Resp B/P (MAP) Pulse Ox O2 Delivery O2 Flow Rate FiO2 10/19/17 18:48 98 Nasal Cannula 4.0 10/19/17 18:48 75 18 115/57 79 Room Air 10/19/17 18:06 75 18 113/57 97 Room Air 10/19/17 17:28 81 18 129/75 96 Room Air 10/19/17 16:37 78 18 120/60 99 Nasal Cannula 2.0 10/19/17 16:05 73 10/19/17 15:54 100 Nasal Cannula 2.0 10/19/17 15:50 112/67 10/19/17 15:32 36.7 67 20 102/58 100 Mask 15.0 Gen.: Initially no acute distress and alert and oriented. He then became unresponsive. HEENT: Anicteric sclera. Neck: No appreciable JVD. Cardiac: Regular rate and rhythm. Normal S1-S2. No audible murmurs, rubs, or gallops. Pulmonary: Clear to auscultation bilaterally without wheezes, rales, or rhonchi. (Anterior auscultation) Abdomen: Soft and nondistended. Extremities: 2+ radial pulses bilaterally. No cyanosis. Psychiatric: Affect appeared appropriate prior to his unresponsive episode. Data Laboratory Results: Last 24 Hours Test 10/19/17 15:35 10/19/17 15:41 10/19/17 16:01 10/19/17 18:58 White Blood Count 7.72 K/uL Red Blood Count 3.99 M/uL Hemoglobin 9.8 g/dL Hematocrit 31.2 % Mean Corpuscular Volume 78.2 fL Mean Corpuscular Hemoglobin 24.6 pg Mean Corpuscular Hemoglobin Concent 31.4 g/dl Platelet Count 216 K/uL Mean Platelet Volume 9.2 fL Neutrophils (%) (Auto) 63.1 % Lymphocytes (%) (Auto) 24.5 % Monocytes (%) (Auto) 5.6 % Eosinophils (%) (Auto) 5.7 % Basophils (%) (Auto) 0.3 % Neutrophils # (Auto) 4.88 K/uL Lymphocytes # (Auto) 1.89 K/uL Monocytes # (Auto) 0.43 K/uL Eosinophils # (Auto) 0.44 K/uL Basophils # (Auto) 0.02 K/uL RDW Standard Deviation 48.9 fL RDW Coefficient of Variation 17.1 % Immature Granulocyte % (Auto) 0.8 % Immature Granulocyte # (Auto) 0.06 K/uL Prothrombin Time 10.7 SECONDS Prothromb Time International Ratio 1.0 Activated Partial Thromboplast Time 25.7 SECONDS Partial Thromboplastin Ratio 1.0 Sodium Level 138 mmol/L Potassium Level 4.2 mmol/L Chloride Level 102 mmol/L Carbon Dioxide Level 26 mmol/L Anion Gap 10.0 mmol/L 19.0 mmol/L Blood Urea Nitrogen 32 mg/dl Creatinine 1.45 mg/dl Est Creatinine Clear Calc Drug Dose 53.9 ml/min Estimated GFR () 53.1 Estimated GFR (Non- 45.8 BUN/Creatinine Ratio 22.2 Random Glucose 97 mg/dl Calcium Level 8.4 mg/dl Total Bilirubin 0.3 mg/dl Direct Bilirubin < 0.1 mg/dl Aspartate Amino Transf (AST/SGOT) 12 U/L Alanine Aminotransferase (ALT/SGPT) 26 U/L Alkaline Phosphatase 60 U/L Troponin I 0.015 ng/ml Pro-B-Type Natriuretic Peptide 1227 pg/ml Total Protein 6.9 gm/dl Albumin 2.8 gm/dl Lipase 141 U/L Bedside Hemoglobin 10.2 g/dl Bedside Hematocrit 30 % Bedside Sodium 140 mEq/L Bedside Potassium 4.2 mEq/L Bedside Chloride 98 mEq/L Bedside Total CO2 28 mEq/l Bedside Blood Urea Nitrogen 30 mg/dl Bedside Creatinine 1.3 mg/dl Bedside Glucose (other) 102 mg/dl Bedside Ionized Calcium (Kaylah) 1.15 mmol/l Bedside Troponin I < 0.030 ng/ml Lactic Acid Level 2.1 mmol/L Cardiac catheterization 09/05/2017: Separate ostia for LAD and circumflex. Proximal LAD 30%; mid LAD 60-70% near bifurcation of D1. Late mid LAD 40%. Distal LAD 50%. Proximal D1 40%. Mid circumflex 40%. Proximal OM1 50%. Mid OM1 50-60%. At the bifurcation of OM2, there was a 99% subtotal occlusion of the OM2. Beoh-bz-nnac and fqedx-tq-dvsq collaterals. Proximal RCA 30%. Distal RCA 40%. PDA 90%. LVEDP 16. No aortic stenosis. Transesophageal [place] [facility] Normal LV size, systolic function, wall motion. EF 55%. 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 Small, hemodynamically insignificant pericardial effusion. No AI. CT angiography 10/19/2017: Extensive mixed plaque formation about the abdominal aorta and proximal branch vessels without aneurysm, dissection, high- grade stenosis or proximal branch occlusion identified per Radiology. Three suspicious nodules about the left upper lobe and lingula, largest measuring 1.8 cm (suspicious for neoplasm per Radiology). Suggested mild pulmonary edema per Radiology. ECG personally reviewed. ECG 10/19/2017: Sinus rhythm 64 bpm. RBBB. No significant change from 09/05/2017. ECG during the unresponsive episode on 10/19/2017 at 3:16 p.m.: Sinus rhythm 73 bpm. RBBB. Assessment & Plan ASSESSMENT/PLAN: 1. Unresponsive/syncope: This was likely secondary to hypotension. Etiology for hypotension could be secondary to hypovolemia in the setting of antihypertensive medications, some of which were recently started while at [facility]. 911 was called while administering IV fluids in the office. He was then seen in the ER and had a normal blood pressure. He was alert and could carry on a conversation. Initially recommended to emergency department to further evaluate aorta for dissection and CT scan was interpreted as above. It is doubtful that arrhythmia was the cause as I immediately checked his pulse when the event occurred and continued to palpate his pulse throughout much of the episode. There was no tachyarrhythmia or significant pauses noted. ECG at that time also demonstrated sinus rhythm with a heart rate of 73 bpm. 2. Hypotension: May be secondary to hypovolemia also with antihypertensive medications. His antihypertensive regimen was significantly increased while at [facility]. Agree with holding amlodipine and lisinopril. If blood pressure remains normal for the next few hours, would recommend reduced dose carvedilol, perhaps 12.5 mg twice daily to night. Reassess in the morning but would first favor beta-donaldo over amlodipine given his dissection and CAD if able to titrate medication. Check limited echo. He did have areported hemodynamically insignificant pericardial effusion at [facility]. 3. CAD status post PCI: He has PCI of PDA, circumflex/OM, and LAD. Continue aspirin 81 mg daily and Plavix 75 mg daily, without interruption. Continue high -intensity statin therapy and beta-donaldo as above. No angina. Troponins may become slightly elevated due to his hypotensive episode earlier today. 4. Type A dissection: Repeat imaging here without notable dissection per Radiology. Blood pressure control important but would not restart his home medications currently given his presentation and the fact that many of these medications are new or recently titrated. Can cautiously titrate medications as appropriate going forward. 5. Hypertension: Discussion as above. 6. Pericardial effusion: He reportedly had a hemodynamically insignificant pericardial effusion at [facility]. Given today's event, limited echo ordered. 7. Disposition: Dr. Barone will be available over the weekend to assist in his cardiology care. Presentation and history were discussed with him so that he is aware. Patient care was also discussed with Dr. Tellez upon presentation. Patient was seen in the office initially as noted above and then also in the emergency department after his blood pressure was stabilized and initial testing was performed.
[2017-10-19 21:36] VITALS: BP 110/64; PULSE 70; TEMP 36.5; O2SAT 97; Ht 177.8 cm; Wt 108.9 kg
[2017-10-19] MEDS: HEPARIN SOD 5000 UNIT/0.5 ML CARP SQ SCH (22:00)
[2017-10-19 22:29] LABS: CALCIUM 8.3 mg/dl (8.5-10.1); CREATININE 1.08 mg/dl (0.60-1.40); PHOSPHORUS 3.4 mg/dl (2.5-4.9); POTASSIUM 4.4 mmol/L (3.5-5.1)
[2017-10-19] MEDS: PrednisoLONE ACET 1% OP SUSP 5 ML BTL OP SCH (22:44)
[2017-10-19] MEDS: ASPIRIN 81 MG ECTAB PO SCH (22:44)
[2017-10-19] MEDS ORDERED: NURSING VERBAL MED ORDER ONE (22:45)
[2017-10-19 23:21] VITALS: BP 116/71; PULSE 66; TEMP 36.9; O2SAT 97
[2017-10-19] MEDS: MAGNESIUM SULFATE 1GM / D5W 100 ML IV SCH (23:24)
[2017-10-20] MEDS: MAGNESIUM SULFATE 1GM / D5W 100 ML IV SCH (00:18)
[2017-10-20 03:42] VITALS: BP 131/67; PULSE 73; TEMP 36.8; O2SAT 97
[2017-10-20] MEDS: HEPARIN SOD 5000 UNIT/0.5 ML CARP SQ SCH ×3 (04:22→20:34)
[2017-10-20 04:57] LABS: HEMATOCRIT 30.6 % (42-52); HEMOGLOBIN 9.6 g/dL (14.0-18.0); MEAN CELL VOLUME 78.1 fL (80-100); MEAN CORPUSCULAR HEMOGLOBIN 24.5 pg (25-34); MEAN CORPUSCULAR HGB CONC 31.4 g/dl (32-36); MEAN PLATELET VOLUME 8.8 fL (7.4-10.4); PLATELET COUNT 213 K/uL (130-400); RED CELL DISTRIBUTION WIDTH SD 48.6 fL (36.4-46.3); WHITE BLOOD COUNT 6.27 K/uL (4.8-10.8)
[2017-10-20 05:20] LABS: CALCIUM 7.8 mg/dl (8.5-10.1)
[2017-10-20 07:44] VITALS: BP 127/76; PULSE 62; TEMP 36.6; O2SAT 96
[2017-10-20] MEDS: CLOPIDOGREL BISULFATE 75 MG TAB PO SCH (07:57)
[2017-10-20] MEDS: FINASTERIDE 5 MG TAB PO SCH (07:57)
[2017-10-20] MEDS: ALLOPURINOL 300 MG TAB PO SCH (07:57)
[2017-10-20] MEDS: PrednisoLONE ACET 1% OP SUSP 5 ML BTL OP SCH ×4 (07:57→20:33)
[2017-10-20] MEDS: ATORVASTATIN 40 MG TAB PO SCH (07:57)
[2017-10-20] MEDS ORDERED: PERFLUTREN LIPID MICROSPHERE (DEFINITY) IV ONE (07:58)
--- NOTE | 2017-10-20 09:19 | ECHOCARDIOGRAM REPORT ---
*NOTICE TO RECEIVING REPUBLICAN AGENCY This information is strictly Confidential and protected under [place] law. [place] law prohibits you from making any further disclosure of this information unless further disclosure is expressly permitted by the written consent of the person to whom it pertains or is authorized by law. A general authorization for the release of medical or other information is not sufficient for this purpose. Hospital accepts no responsibility if the information is made available to any other person, INCLUDING THE PATIENT. Interpretation Summary * Name: YURI PIMENTEL Study Date: 10/20/2017 07:33 AM BP: 110/71 mmHg * Patient Location: C.2T\S\S240\S\2 HR: 68 * : 1940 (M/d/yyyy) Gender: Male Height: 70 in * Age: 77 yrs Ethnicity: [place] Weight: 258 lb * Ordering Physician: Emmanuel Singh * Referring Physician: Emmanuel Singh. * Performed By: Evaristo Barrera RDCS * * Reason For Study: Syncope, hypotension, F/U pericardial effusion, evaluate wall motion * BSA: 2.3 m2 * -- Conclusions -- * Left ventricular systolic function is normal. * Ejection Fraction = 55-60%. * Borderline right ventricular enlargement. * The right ventricular systolic function is normal. * Aortic valve sclerosis mild, without significant aortic valvular stenosis. * Right ventricular systolic pressure is normal. * There is no pericardial effusion. * Grade I diastolic dysfunction, (abnormal relaxation pattern). Procedure Details * A complete two-dimensional transthoracic echocardiogram was performed (2D, M-mode, Doppler and color flow Doppler). * The study was technically difficult, but visualization was adequate with the administration of Definity ultrasound contrast. * A contrast injection of Definity was performed to improve assessment of LV function. * Contrast was injected into an intravenous site in the right arm. * One vial of Definity ultrasound contrast was diluted in normal saline to a total volume of 10 ml. A total of '4' ml of solution was administered during imaging. * Lot # [id number] of Definity utilized for procedure. * Expiration date UL. * The attending nurse who injected the contrast agent was Christine De La Paz RN. Left Ventricle * The left ventricle is normal in size. * The basal septum is thickened and angulated consistent with sigmoid septum. * Left ventricular systolic function is normal. * Ejection Fraction = 55-60%. * The left ventricular wall motion is normal. Right Ventricle * Borderline right ventricular enlargement. * The right ventricular systolic function is normal. Atria * The left atrium is mildly dilated. * The right atrium is mildly dilated. Mitral Valve * The mitral valve is grossly normal. * There is trace mitral regurgitation. Tricuspid Valve * The tricuspid valve is not well visualized, but is grossly normal. * Right ventricular systolic pressure is normal. Aortic Valve * Aortic valve sclerosis mild, without significant aortic valvular stenosis. * No aortic regurgitation is present. Pulmonic Valve * The pulmonic valve is not well visualized. Great Vessels * The aortic root is normal size. Pericardium/Pleural * There is no pericardial effusion. Great Vessels * Normal inferior vena cava size and collapsability with sniff indicates a normal right atrial pressure of 3 mmHg Left Ventricular Diastolic Function * Grade I diastolic dysfunction, (abnormal relaxation pattern). MMode 2D Measurements and Calculations IVSd 1.6 cm IVSs 2.4 cm LVIDd 4.8 cm LVIDs 3.5 cm LVPWd 0.95 cm LVPWs 1.4 cm IVS/LVPW 1.7 FS 27.9 % EDV(Teich) 106.8 ml ESV(Teich) 49.2 ml EF(Teich) 54.0 % EDV(cubed) 109.7 ml ESV(cubed) 41.1 ml EF(cubed) 62.5 % % IVS thick 54.3 % % LVPW thick 45.5 % LV mass(C)d 234.7 grams LV mass(C)dI 100.9 grams/m\S\2 LV mass(C)s 285.6 grams LV mass(C)sI 122.8 grams/m\S\2 SV(Teich) 57.6 ml SI(Teich) 24.8 ml/m\S\2 SV(cubed) 68.6 ml SI(cubed) 29.5 ml/m\S\2 Ao root diam 2.9 cm Ao root area 6.5 cm\S\2 ACS 1.7 cm LA dimension 4.8 cm LA/Ao 1.7 LVAd ap4 36.7 cm\S\2 LVLd ap4 9.6 cm EDV(MOD-sp4) 119.6 ml EDV(sp4-el) 119.7 ml LVAs ap4 22.6 cm\S\2 LVLs ap4 8.1 cm ESV(MOD-sp4) 57.4 ml ESV(sp4-el) 53.6 ml EF(MOD-sp4) 52.0 % EF(sp4-el) 55.2 % LVAd ap2 34.7 cm\S\2 LVLd ap2 9.1 cm EDV(MOD-sp2) 109.3 ml EDV(sp2-el) 112.3 ml LVAs ap2 19.9 cm\S\2 LVLs ap2 7.5 cm ESV(MOD-sp2) 43.7 ml ESV(sp2-el) 44.7 ml EF(MOD-sp2) 60.0 % EF(sp2-el) 60.1 % LVLd %diff -5.22 % EDV(MOD-bp) 116.0 ml LVLs %diff -7.57 % ESV(MOD-bp) 50.2 ml EF(MOD-bp) 56.7 % SV(MOD-sp4) 62.3 ml SI(MOD-sp4) 26.8 ml/m\S\2 SV(MOD-sp2) 65.6 ml SI(MOD-sp2) 28.2 ml/m\S\2 SV(MOD-bp) 65.7 ml SI(MOD-bp) 28.3 ml/m\S\2 SV(sp4-el) 66.1 ml SI(sp4-el) 28.4 ml/m\S\2 SV(sp2-el) 67.5 ml SI(sp2-el) 29.0 ml/m\S\2
[2017-10-20 11:59] VITALS: BP 119/65; PULSE 70; TEMP 36.7; O2SAT 95
--- NOTE | 2017-10-20 12:09 | Cardiology Follow-Up ---
Subjective General Date of Service: Oct 20, 2017. Pt evaluation today including: conversation w/ patient, chart review, lab review, review of studies History of Present Illness The patient is a 77 year old male Allergies Coded Allergies: No Known Allergies (Verified , 10/19/17) Social History Smoking Status: Never Smoker Hx Tobacco Use In Past Year?: No Hx Alcohol Use - Type And Amou: No Hx Substance Use - Type And Am: No Problem List Medical Problems: (1) CORTNEY (acute kidney injury) Status: Acute (2) Hypoxia Status: Acute (3) Near syncope Status: Acute (4) Syncope Status: Acute Review of Systems Respiratory: No cough, No wheezing, No shortness of breath, No dyspnea at rest Cardiac: No chest pain, No edema, No palpitations Additional ROS Details: Feels well Physical Exam Vital Signs Last Vital Signs Documentation Date Time Temp Pulse Resp B/P (MAP) Pulse Ox O2 Delivery O2 Flow Rate FiO2 10/20/17 11:59 36.7 70 19 119/65 (83) 95 Room Air 10/20/17 07:44 2.0 Physical Exam Constitutional: General Apperance: heathly-appearing Level of Distress: NAD Lungs: Respiratory effort: no dyspnea Auscultation: breath sounds normal, no wheezing, no rales/crackles, no rhonchi Cardiovascular: Heart Auscultation: RRR, no murmurs, no rubs, no gallops Abdomen: Bowel Sounds: normal Inspection & Palpation: soft, non-distended, no tenderness, guarding & rebound Extremities: no edema Assessment and Plan Assessment and Plan Cardiac catheterization 09/05/2017: Separate ostia for LAD and circumflex. Proximal LAD 30%; mid LAD 60-70% near bifurcation of D1. Late mid LAD 40%. Distal LAD 50%. Proximal D1 40%. Mid circumflex 40%. Proximal OM1 50%. Mid OM1 50-60%. At the bifurcation of OM2, there was a 99% subtotal occlusion of the OM2. [id number] and [id number] collaterals. Proximal RCA 30%. Distal RCA 40%. PDA 90%. LVEDP 16. No aortic stenosis. Transesophageal echo at [facility]: Normal LV size, systolic function, wall motion. EF 55%. 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 Small, hemodynamically insignificant pericardial effusion. No AI. CT angiography 10/19/2017: Extensive mixed plaque formation about the abdominal aorta and proximal branch vessels without aneurysm, dissection, high- grade stenosis or proximal branch occlusion identified per Radiology. Three suspicious nodules about the left upper lobe and lingula, largest measuring 1.8 cm (suspicious for neoplasm per Radiology). Suggested mild pulmonary edema per Radiology. ECG personally reviewed. ECG 10/19/2017: Sinus rhythm 64 bpm. RBBB. No significant change from 09/05/2017. ECG during the unresponsive episode on 10/19/2017 at 3:16 p.m.: Sinus rhythm 73 bpm. RBBB. Assessment & Plan ASSESSMENT/PLAN: 1. Unresponsive/syncope: This was likely secondary to hypotension. Etiology for hypotension could be secondary to hypovolemia in the setting of antihypertensive medications It is doubtful that arrhythmia was the cause as I immediately checked his pulse when the event occurred and continued to palpate his pulse throughout much of the episode. There was no tachyarrhythmia or significant pauses noted. ECG at that time also demonstrated sinus rhythm with a heart rate of 73 bpm. BP is improved off all of his antihypertensive medication. As an outpatient he was on carvedilol 25 mg twice daily, losartan 25 mg daily, Norvasc 5 mg daily, and Lasix 20 mg daily. 2. Hypotension: Resolved but his blood pressure today is normal on no anti- tubes. I would stop his IV fluids and ambulate him and see how he feels. 3. CAD status post PCI: He has PCI of PDA, circumflex/OM, and LAD. Continue aspirin 81 mg daily and Plavix 75 mg daily, without interruption. Continue high -intensity statin therapy and beta-donaldo if possible. His troponins here are negative and therefore there is no evidence of an acute coronary syndrome 4. Type A dissection: Repeat imaging here without notable dissection per Radiology. 5. Hypertension: Discussion as above. 6. Pericardial effusion: No evidence of pericardial effusion by echocardiogram today 7. Echocardiogram today suggest preserved left ventricular systolic function with a normal EF and no evidence of regional wall motion abnormalities 8. 1 minute run of what appears to be sustained VT that lasted a minute at approximately 2100 on 10/19/2017. It was asymptomatic as the patient is unaware of it. I would stop his IV fluids. I would ambulate him and see how he does at this point all of his antihypertensives are on hold except for medication that impacts his prostate. I would monitor him overnight to make sure he does not have any additional episodes of ventricular arrhythmias. As Dr. Singh noted in the office he had a pulse and an EKG that suggested sinus rhythm in the 70s. This would make his episode in the office unlikely to be an arrhythmia. One should consider a 4 week event recorder as an outpatient to make sure he is not having extended episodes of ventricular arrhythmias that may be a cause for syncope. We will continue to follow him with you. Laboratory Results Last 24 Hours Test 10/19/17 15:35 10/19/17 15:41 10/19/17 16:01 10/19/17 19:42 White Blood Count 7.72 K/uL Red Blood Count 3.99 M/uL Hemoglobin 9.8 g/dL Hematocrit 31.2 % Mean Corpuscular Volume 78.2 fL Mean Corpuscular Hemoglobin 24.6 pg Mean Corpuscular Hemoglobin Concent 31.4 g/dl Platelet Count 216 K/uL Mean Platelet Volume 9.2 fL Neutrophils (%) (Auto) 63.1 % Lymphocytes (%) (Auto) 24.5 % Monocytes (%) (Auto) 5.6 % Eosinophils (%) (Auto) 5.7 % Basophils (%) (Auto) 0.3 % Neutrophils # (Auto) 4.88 K/uL Lymphocytes # (Auto) 1.89 K/uL Monocytes # (Auto) 0.43 K/uL Eosinophils # (Auto) 0.44 K/uL Basophils # (Auto) 0.02 K/uL RDW Standard Deviation 48.9 fL RDW Coefficient of Variation 17.1 % Immature Granulocyte % (Auto) 0.8 % Immature Granulocyte # (Auto) 0.06 K/uL Prothrombin Time 10.7 SECONDS Prothromb Time International Ratio 1.0 Activated Partial Thromboplast Time 25.7 SECONDS Partial Thromboplastin Ratio 1.0 Sodium Level 138 mmol/L Potassium Level 4.2 mmol/L Chloride Level 102 mmol/L Carbon Dioxide Level 26 mmol/L Anion Gap 10.0 mmol/L 19.0 mmol/L Blood Urea Nitrogen 32 mg/dl Creatinine 1.45 mg/dl Est Creatinine Clear Calc Drug Dose 53.9 ml/min Estimated GFR () 53.1 Estimated GFR (Non- 45.8 BUN/Creatinine Ratio 22.2 Random Glucose 97 mg/dl Calcium Level 8.4 mg/dl Total Bilirubin 0.3 mg/dl Direct Bilirubin < 0.1 mg/dl Aspartate Amino Transf (AST/SGOT) 12 U/L Alanine Aminotransferase (ALT/SGPT) 26 U/L Alkaline Phosphatase 60 U/L Troponin I 0.015 ng/ml Pro-B-Type Natriuretic Peptide 1227 pg/ml Total Protein 6.9 gm/dl Albumin 2.8 gm/dl Lipase 141 U/L Bedside Hemoglobin 10.2 g/dl Bedside Hematocrit 30 % Bedside Sodium 140 mEq/L Bedside Potassium 4.2 mEq/L Bedside Chloride 98 mEq/L Bedside Total CO2 28 mEq/l Bedside Blood Urea Nitrogen 30 mg/dl Bedside Creatinine 1.3 mg/dl Bedside Glucose (other) 102 mg/dl Bedside Ionized Calcium (Kaylah) 1.15 mmol/l Bedside Troponin I < 0.030 ng/ml Lactic Acid Level 2.1 mmol/L 0.7 mmol/L Test 10/19/17 20:03 10/19/17 21:43 10/20/17 04:43 10/20/17 07:24 Bedside Glucose 129 mg/dl 85 mg/dl Sodium Level 138 mmol/L 139 mmol/L Potassium Level 4.4 mmol/L 4.0 mmol/L Chloride Level 103 mmol/L 106 mmol/L Carbon Dioxide Level 26 mmol/L 29 mmol/L Anion Gap 9.0 mmol/L 4.0 mmol/L Blood Urea Nitrogen 29 mg/dl 26 mg/dl Creatinine 1.08 mg/dl 1.00 mg/dl Est Creatinine Clear Calc Drug Dose 66.7 ml/min 72.0 ml/min Estimated GFR () 75.8 83.2 Estimated GFR (Non- 65.4 71.8 BUN/Creatinine Ratio 26.5 26.5 Random Glucose 160 mg/dl 112 mg/dl Calcium Level 8.3 mg/dl 7.8 mg/dl Phosphorus Level 3.4 mg/dl Magnesium Level 1.5 mg/dl 2.0 mg/dl Troponin I 0.018 ng/ml 0.020 ng/ml White Blood Count 6.27 K/uL Red Blood Count 3.92 M/uL Hemoglobin 9.6 g/dL Hematocrit 30.6 % Mean Corpuscular Volume 78.1 fL Mean Corpuscular Hemoglobin 24.5 pg Mean Corpuscular Hemoglobin Concent 31.4 g/dl RDW Standard Deviation 48.6 fL RDW Coefficient of Variation 17.0 % Platelet Count 213 K/uL Mean Platelet Volume 8.8 fL Test 10/20/17 11:19 Bedside Glucose 143 mg/dl
--- NOTE | 2017-10-20 14:40 | Hospitalist Progress Note ---
Hospitalist Progress Note Date of Service Oct 20, 2017. Subjective Pt evaluation today including: conversation w/ patient, conversation w/ family ( at the bedside), conversation w/ mining consultant (Cardiology) Patient feeling better today. Blood pressures are in the normal range and is off all of his antihypertensives. Telemetry revealed a 1 minute run of nonsustained ventricular tachycardia that was asymptomatic at 2100, otherwise with normal sinus rhythm with rates 60s-70s. He denies chest pain or shortness of breath. No lightheadedness or headache. As for his anemia, he is down 3 g from 1 month ago. He denies any obvious GI or bleeding. Denies abdominal pain. He does have occasional indigestion. He was started on Plavix in addition to his aspirin after his stents were placed last month. He had a colonoscopy 1 year ago had a couple of polyps removed. He has never had an EGD. All Other Systems: Reviewed and Negative Objective Vital Signs Date Time Temp Pulse Resp B/P (MAP) Pulse Ox O2 Delivery O2 Flow Rate FiO2 10/20/17 11:59 36.7 70 19 119/65 (83) 95 Room Air 10/20/17 08:00 Room Air 10/20/17 07:44 36.6 62 19 127/76 (93) 96 Nasal Cannula 2.0 10/20/17 03:42 36.8 73 20 131/67 (88) 97 Nasal Cannula 2.0 10/19/17 23:21 36.9 66 20 116/71 (86) 97 Nasal Cannula 2.0 10/19/17 21:36 36.5 70 18 110/64 97 Nasal Cannula 2.0 10/19/17 19:33 73 18 124/59 100 Nasal Cannula 4.0 10/19/17 18:48 98 Nasal Cannula 4.0 10/19/17 18:48 75 18 115/57 79 Room Air 10/19/17 18:06 75 18 113/57 97 Room Air 10/19/17 17:28 81 18 129/75 96 Room Air 10/19/17 16:37 78 18 120/60 99 Nasal Cannula 2.0 10/19/17 16:05 73 10/19/17 15:54 100 Nasal Cannula 2.0 10/19/17 15:50 112/67 10/19/17 15:32 36.7 67 20 102/58 100 Mask 15.0 Physical Exam General Appearance: WD/WN, no apparent distress Eyes: normal inspection, EOMI, sclerae normal ENT: hearing grossly normal Neck: trachea midline Respiratory/Chest: lungs clear, normal breath sounds, no respiratory distress, no accessory muscle use Cardiovascular: regular rate, rhythm, no edema, no murmur Abdomen: normal bowel sounds, non tender, soft, no organomegaly Extremities: non-tender, normal inspection, no pedal edema, no calf tenderness Neurologic/Psychiatric: alert, normal mood/affect, oriented x 3 Skin: normal color, warm/dry, no rash Laboratory Results Last 24 Hours Test 10/19/17 15:35 10/19/17 15:41 10/19/17 16:01 10/19/17 19:42 White Blood Count 7.72 K/uL Red Blood Count 3.99 M/uL Hemoglobin 9.8 g/dL Hematocrit 31.2 % Mean Corpuscular Volume 78.2 fL Mean Corpuscular Hemoglobin 24.6 pg Mean Corpuscular Hemoglobin Concent 31.4 g/dl Platelet Count 216 K/uL Mean Platelet Volume 9.2 fL Neutrophils (%) (Auto) 63.1 % Lymphocytes (%) (Auto) 24.5 % Monocytes (%) (Auto) 5.6 % Eosinophils (%) (Auto) 5.7 % Basophils (%) (Auto) 0.3 % Neutrophils # (Auto) 4.88 K/uL Lymphocytes # (Auto) 1.89 K/uL Monocytes # (Auto) 0.43 K/uL Eosinophils # (Auto) 0.44 K/uL Basophils # (Auto) 0.02 K/uL RDW Standard Deviation 48.9 fL RDW Coefficient of Variation 17.1 % Immature Granulocyte % (Auto) 0.8 % Immature Granulocyte # (Auto) 0.06 K/uL Prothrombin Time 10.7 SECONDS Prothromb Time International Ratio 1.0 Activated Partial Thromboplast Time 25.7 SECONDS Partial Thromboplastin Ratio 1.0 Sodium Level 138 mmol/L Potassium Level 4.2 mmol/L Chloride Level 102 mmol/L Carbon Dioxide Level 26 mmol/L Anion Gap 10.0 mmol/L 19.0 mmol/L Blood Urea Nitrogen 32 mg/dl Creatinine 1.45 mg/dl Est Creatinine Clear Calc Drug Dose 53.9 ml/min Estimated GFR () 53.1 Estimated GFR (Non- 45.8 BUN/Creatinine Ratio 22.2 Random Glucose 97 mg/dl Calcium Level 8.4 mg/dl Total Bilirubin 0.3 mg/dl Direct Bilirubin < 0.1 mg/dl Aspartate Amino Transf (AST/SGOT) 12 U/L Alanine Aminotransferase (ALT/SGPT) 26 U/L Alkaline Phosphatase 60 U/L Troponin I 0.015 ng/ml Pro-B-Type Natriuretic Peptide 1227 pg/ml Total Protein 6.9 gm/dl Albumin 2.8 gm/dl Lipase 141 U/L Bedside Hemoglobin 10.2 g/dl Bedside Hematocrit 30 % Bedside Sodium 140 mEq/L Bedside Potassium 4.2 mEq/L Bedside Chloride 98 mEq/L Bedside Total CO2 28 mEq/l Bedside Blood Urea Nitrogen 30 mg/dl Bedside Creatinine 1.3 mg/dl Bedside Glucose (other) 102 mg/dl Bedside Ionized Calcium (Kaylah) 1.15 mmol/l Bedside Troponin I < 0.030 ng/ml Lactic Acid Level 2.1 mmol/L 0.7 mmol/L Test 10/19/17 20:03 10/19/17 21:43 10/20/17 04:43 10/20/17 07:24 Bedside Glucose 129 mg/dl 85 mg/dl Sodium Level 138 mmol/L 139 mmol/L Potassium Level 4.4 mmol/L 4.0 mmol/L Chloride Level 103 mmol/L 106 mmol/L Carbon Dioxide Level 26 mmol/L 29 mmol/L Anion Gap 9.0 mmol/L 4.0 mmol/L Blood Urea Nitrogen 29 mg/dl 26 mg/dl Creatinine 1.08 mg/dl 1.00 mg/dl Est Creatinine Clear Calc Drug Dose 66.7 ml/min 72.0 ml/min Estimated GFR () 75.8 83.2 Estimated GFR (Non- 65.4 71.8 BUN/Creatinine Ratio 26.5 26.5 Random Glucose 160 mg/dl 112 mg/dl Calcium Level 8.3 mg/dl 7.8 mg/dl Phosphorus Level 3.4 mg/dl Magnesium Level 1.5 mg/dl 2.0 mg/dl Troponin I 0.018 ng/ml 0.020 ng/ml White Blood Count 6.27 K/uL Red Blood Count 3.92 M/uL Hemoglobin 9.6 g/dL Hematocrit 30.6 % Mean Corpuscular Volume 78.1 fL Mean Corpuscular Hemoglobin 24.5 pg Mean Corpuscular Hemoglobin Concent 31.4 g/dl RDW Standard Deviation 48.6 fL RDW Coefficient of Variation 17.0 % Platelet Count 213 K/uL Mean Platelet Volume 8.8 fL Test 10/20/17 11:19 Bedside Glucose 143 mg/dl Diagnostic Results ECHO: * Left ventricular systolic function is normal. * Ejection Fraction = 55-60%. * Borderline right ventricular enlargement. * The right ventricular systolic function is normal. * Aortic valve sclerosis mild, without significant aortic valvular stenosis. * Right ventricular systolic pressure is normal. * There is no pericardial effusion. * Grade I diastolic dysfunction, (abnormal relaxation pattern) Assessment and Plan This patient is a 77 y/o M Hx HTN, HPL, DM II, gout, KEN, obesity, CAD - NSTEMI 07/2017 - recent complex history of stenting followed by coronary artery and type A aortic dissection with resulting transfer to [place]. He is currently under the care of [facility] cardiology. The pt was on route to the fox farmer's office and reports that he felt as though he was car sick on the ride over. He became increasingly lightheaded and diaphoretic after arriving at the office and then suffered a syncopal episode where he was notably hypotensive. He responded to a fluid bolus and was directed to the ER. It is thought that his symptoms may be related to recent antihypertensive prescriptions. He denies any CP or SOB. An EKG was obtained at the cardiology office and then on again on arrival to the ER which showed a normal sinus rhythm. An initial troponin was negative. Labs are otherwise consistent with dehydration, mild ARF and mild lactic elevation, as well as hypomagnesemia. 1) Syncope/nonsustained ventricular tachycardia/hypotension-possibly due to recent medications, dehydration and resultant hypotension. Serial troponin 3 negative. All antihypertensives have been held at this time and blood pressure has improved. Telemetry with 1 minute run of ventricular tachycardia that was asymptomatic and not likely to have been the cause of his syncope yesterday evening as he had a regular rate and rhythm on examination during the event as per cardiology notes. There is no evidence of recurrent aortic dissection. He had a previous trace pericardial effusion on echocardiogram after aortic dissection several weeks ago. Echocardiogram with preserved EF, no further pericardial effusion -Continue to hold home carvedilol, losartan, amlodipine, and Lasix -May restart Coreg tomorrow at a lower dose of 12.5 mg twice daily -Recent anemia may also be playing a role-workup as below -Appreciate cardiology consultation -Continue telemetry monitoring and cardiology recommends 4 week event monitor after discharge -Replaced magnesium yesterday 2) CORTNEY likely prerenal - IVF provided and now resolved -Continue to hold losartan, Norvasc, Carvedilol -Follow BMP 3) CAD/chronic diastolic CHF recent NSTEMI with complication of coronary artery dissection and aortic dissection now status post further stenting. Was volume down upon admission and was gently hydrated. No evidence of volume overload at this time -cont Statin, ASA, Plavix -Holding home Lasix 4) DM II -hemoglobin A1c last month was 7.2% which is well controlled for his age and comorbidities. -Continue Accu-Cheks, and will begin sliding scale insulin -Holding home Lantus currently 5) microcytic anemia-macrocytosis ongoing for years. No recent iron studies in many years. Colonoscopy last year with a few polyps but no active bleeding, tubular adenoma on pathology. He is down 3 g from 1 month ago. Some of this may be due to anemia of chronic disease and prolonged hospitalization recently. But was also placed on Plavix in addition to his aspirin for his stents and could have a slow GI bleed. -Hemoccult stool -Check iron studies, B12, Folate in the morning -Recommend outpatient GI follow-up unless has obvious GI bleeding while hospitalized 6) BPH-stable -Continue finasteride 7) gout-stable -Continue allopurinol for prophylaxis Prophylaxis-heparin SQ for DVT prophylaxis Disposition-remain on telemetry overnight and likely discharge to home tomorrow
[2017-10-20 15:00] VITALS: BP 119/63; PULSE 72; TEMP 36.5; O2SAT 95
[2017-10-20 19:00] VITALS: BP 147/75; PULSE 80; TEMP 36.9; O2SAT 93
[2017-10-20] MEDS: ASPIRIN 81 MG ECTAB PO SCH (20:33)
[2017-10-20] MEDS: INSULIN ASPART 100 UNITS/ML 3 ML PEN SC SCH (20:35)
[2017-10-20 23:05] VITALS: BP 130/70; PULSE 91; TEMP 37.2; O2SAT 94
[2017-10-21 03:04] VITALS: BP 148/71; PULSE 85; TEMP 37; O2SAT 95
[2017-10-21] MEDS: HEPARIN SOD 5000 UNIT/0.5 ML CARP SQ SCH (05:46)
[2017-10-21 06:41] VITALS: BP 133/78; PULSE 81; TEMP 37; O2SAT 93
[2017-10-21 07:15] LABS: BASO % 0.3 %; BASO ABS # 0.02 K/uL (0-0.2); EOS % 6.6 %; HEMATOCRIT 31.5 % (42-52); HEMOGLOBIN 9.9 g/dL (14.0-18.0); IG# 0.02 K/uL (0.00-0.02); LYMPH % 18.8 %; LYMPH ABS # 1.14 K/uL (1.2-3.4); MEAN CELL VOLUME 77.4 fL (80-100); MEAN CORPUSCULAR HEMOGLOBIN 24.3 pg (25-34); MEAN CORPUSCULAR HGB CONC 31.4 g/dl (32-36); MEAN PLATELET VOLUME 9.1 fL (7.4-10.4); MONO % 8.1 %; MONO ABS # 0.49 K/uL (0.11-0.59); NEUT % 65.9 %; NEUT ABS # 3.98 K/uL (1.4-6.5); PLATELET COUNT 207 K/uL (130-400); RED CELL DISTRIBUTION WIDTH CV 16.8 % (11.5-14.5); RED CELL DISTRIBUTION WIDTH SD 47.6 fL (36.4-46.3); WHITE BLOOD COUNT 6.05 K/uL (4.8-10.8)
[2017-10-21 07:54] LABS: CALCIUM 8.1 mg/dl (8.5-10.1); CREATININE 0.86 mg/dl (0.60-1.40); POTASSIUM 3.9 mmol/L (3.5-5.1)
[2017-10-21] MEDS: INSULIN ASPART 100 UNITS/ML 3 ML PEN SC SCH ×2 (08:24→12:08)
[2017-10-21] MEDS: PrednisoLONE ACET 1% OP SUSP 5 ML BTL OP SCH ×2 (08:26→12:09)
[2017-10-21] MEDS: ALLOPURINOL 300 MG TAB PO SCH (08:26)
[2017-10-21] MEDS: ATORVASTATIN 40 MG TAB PO SCH (08:26)
[2017-10-21] MEDS: FINASTERIDE 5 MG TAB PO SCH (08:26)
[2017-10-21] MEDS: CLOPIDOGREL BISULFATE 75 MG TAB PO SCH (08:26)
[2017-10-21] MEDS ORDERED: CARVEDILOL 12.5 MG TAB PO ONE (09:15)
[2017-10-21] MEDS ORDERED: INSULIN GLARGINE SOLOSTAR 100 UNITS/ML 3 ML PEN SC ONE (09:16)
[2017-10-21] MEDS ORDERED: GLUCAGON FOR INJ 1 MG VIAL IM PRN (09:30)
[2017-10-21] MEDS ORDERED: GLUCOSE 40% GEL 15 GM TUBE PO PRN (09:30)
[2017-10-21] MEDS ORDERED: GLUCOSE 10 TABS/TUBE PO PRN (09:30)
[2017-10-21] MEDS ORDERED: CARBOHYDRATES FOR HYPOGLYCEMIA PO PRN (09:30)
[2017-10-21] MEDS ORDERED: DEXTROSE 50% 50 ML SYR IV PRN (09:30)
[2017-10-21] MEDS: MAGNESIUM SULFATE 1GM / D5W 100 ML IV SCH ×2 (09:58→11:13)
--- NOTE | 2017-10-21 11:12 | Cardiology Follow-Up ---
Subjective General Date of Service: Oct 21, 2017. Pt evaluation today including: conversation w/ patient, conversation w/ family , chart review, lab review, review of studies, conversation w/ neuropsychology medical consultant History of Present Illness The patient is a 77 year old male Allergies Coded Allergies: No Known Allergies (Verified , 10/19/17) Social History Smoking Status: Never Smoker Hx Tobacco Use In Past Year?: No Hx Alcohol Use - Type And Amou: No Hx Substance Use - Type And Am: No Problem List Medical Problems: (1) CORTNEY (acute kidney injury) Status: Acute (2) Hypoxia Status: Acute (3) Near syncope Status: Acute (4) Syncope Status: Acute Review of Systems Respiratory: No cough, No shortness of breath, No dyspnea on exertion, No dyspnea at rest Cardiac: No chest pain, No edema, No palpitations Additional ROS Details: ambulated yesterday without issues Physical Exam Vital Signs Last Vital Signs Documentation Date Time Temp Pulse Resp B/P (MAP) Pulse Ox O2 Delivery O2 Flow Rate FiO2 10/21/17 06:41 37.0 81 16 133/78 (96) 93 Room Air 10/20/17 07:44 2.0 Physical Exam Constitutional: General Apperance: heathly-appearing Level of Distress: NAD Lungs: Respiratory effort: no dyspnea Auscultation: breath sounds normal, no wheezing, no rales/crackles, no rhonchi Cardiovascular: Heart Auscultation: RRR, no murmurs, no rubs, no gallops Abdomen: Bowel Sounds: normal Inspection & Palpation: soft, non-distended, no tenderness, guarding & rebound Extremities: no edema Assessment and Plan Assessment and Plan Cardiac catheterization 09/05/2017: Separate ostia for LAD and circumflex. Proximal LAD 30%; mid LAD 60-70% near bifurcation of D1. Late mid LAD 40%. Distal LAD 50%. Proximal D1 40%. Mid circumflex 40%. Proximal OM1 50%. Mid OM1 50-60%. At the bifurcation of OM2, there was a 99% subtotal occlusion of the OM2. [id number] and tzlko-kl-clot collaterals. Proximal RCA 30%. Distal RCA 40%. PDA 90%. LVEDP 16. No aortic stenosis. [place] [facility] Normal LV size, systolic function, wall motion. EF 55%. 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 Small, hemodynamically insignificant pericardial effusion. No AI. CT angiography 10/19/2017: Extensive mixed plaque formation about the abdominal aorta and proximal branch vessels without aneurysm, dissection, high- grade stenosis or proximal branch occlusion identified per Radiology. Three suspicious nodules about the left upper lobe and lingula, largest measuring 1.8 cm (suspicious for neoplasm per Radiology). Suggested mild pulmonary edema per Radiology. ECG personally reviewed. ECG 10/19/2017: Sinus rhythm 64 bpm. RBBB. No significant change from 09/05/2017. ECG during the unresponsive episode on 10/19/2017 at 3:16 p.m.: Sinus rhythm 73 bpm. RBBB. Assessment & Plan ASSESSMENT/PLAN: 1. Unresponsive/syncope: This was likely secondary to hypotension. Etiology for hypotension could be secondary to hypovolemia in the setting of antihypertensive medications It is doubtful that arrhythmia was the cause as Dr can immediately checked his pulse with the event and continued to palpate his pulse throughout much of the episode. There was no tachyarrhythmia or significant pauses noted. ECG at that time also demonstrated sinus rhythm with a heart rate of 73 bpm. BP is improved off all of his antihypertensive medication. As an outpatient he was on carvedilol 25 mg twice daily, losartan 25 mg daily, Norvasc 5 mg daily, and Lasix 20 mg daily. D/W Dr Ireland--coreg 12.5mg BID, follow up next week with Dr Can 2. Hypotension: Resolved but his blood pressure today is normal/ I would stop his IV fluids and ambulate him 3. CAD status post PCI: He has PCI of PDA, circumflex/OM, and LAD. Continue aspirin 81 mg daily and Plavix 75 mg daily, without interruption. Continue high -intensity statin therapy and beta-donaldo if possible. His troponins here are negative and therefore there is no evidence of an acute coronary syndrome 4. Type A dissection: Repeat imaging here without notable dissection per Radiology. 5. Hypertension: 6. Pericardial effusion: No evidence of pericardial effusion by echocardiogram 7. Echocardiogram today suggest preserved left ventricular systolic function with a normal EF and no evidence of regional wall motion abnormalities 8. 1 minute run of what appears to be sustained VT that lasted a minute at approximately 2100 on 10/19/2017. It was asymptomatic as the patient is unaware of it. He was off BB at the time No additional arrhythmias overnight. As Dr. Singh noted in the office he had a pulse and an EKG that suggested sinus rhythm in the 70s. This would make his episode in the office unlikely to be an arrhythmia. One should consider a 4 week event recorder as an outpatient to make sure he is not having extended episodes of ventricular arrhythmias that may be a cause for syncope. Ok for d/c, [place] [facility] [place]. Laboratory Results Last 24 Hours Test 10/20/17 11:19 10/20/17 16:40 10/20/17 20:21 10/21/17 06:13 Bedside Glucose 143 mg/dl 144 mg/dl 201 mg/dl White Blood Count 6.05 K/uL Red Blood Count 4.07 M/uL Hemoglobin 9.9 g/dL Hematocrit 31.5 % Mean Corpuscular Volume 77.4 fL Mean Corpuscular Hemoglobin 24.3 pg Mean Corpuscular Hemoglobin Concent 31.4 g/dl Platelet Count 207 K/uL Mean Platelet Volume 9.1 fL Neutrophils (%) (Auto) 65.9 % Lymphocytes (%) (Auto) 18.8 % Monocytes (%) (Auto) 8.1 % Eosinophils (%) (Auto) 6.6 % Basophils (%) (Auto) 0.3 % Neutrophils # (Auto) 3.98 K/uL Lymphocytes # (Auto) 1.14 K/uL Monocytes # (Auto) 0.49 K/uL Eosinophils # (Auto) 0.40 K/uL Basophils # (Auto) 0.02 K/uL RDW Standard Deviation 47.6 fL RDW Coefficient of Variation 16.8 % Immature Granulocyte % (Auto) 0.3 % Immature Granulocyte # (Auto) 0.02 K/uL Sodium Level 140 mmol/L Potassium Level 3.9 mmol/L Chloride Level 106 mmol/L Carbon Dioxide Level 27 mmol/L Anion Gap 7.0 mmol/L Blood Urea Nitrogen 17 mg/dl Creatinine 0.86 mg/dl Est Creatinine Clear Calc Drug Dose 87.5 ml/min Estimated GFR () 96.3 Estimated GFR (Non- 83.1 BUN/Creatinine Ratio 19.5 Random Glucose 154 mg/dl Calcium Level 8.1 mg/dl Magnesium Level 1.6 mg/dl Iron Level 30 mcg/dl Total Iron Binding Capacity 207 mcg/dl Transferrin 174 mg/dl Transferrin % Saturation 12 % Ferritin 151.6 ng/ml Vitamin B12 Level 463 pg/mL Folate 7.63 ng/mL Thyroid Stimulating Hormone (TSH) 0.451 uIu/ml Test 10/21/17 07:24 Bedside Glucose 144 mg/dl
[2017-10-21 11:29] VITALS: BP 125/74; PULSE 75; TEMP 36.6; O2SAT 96
[2017-10-21] MEDS ORDERED: INSDGIPEN SC (12:58)
[2017-10-21] MEDS ORDERED: GLC/500 PO (12:58)
[2017-10-21] MEDS ORDERED: FURO-85 PO (12:58)
[2017-10-21] MEDS ORDERED: CRG125 PO (12:58)
[2017-10-21] MEDS ORDERED: METF-384 PO (12:58)
--- NOTE | 2017-10-21 13:04 | Discharge Instructions ---
Discharge Instructions Date of Service Oct 21, 2017. Admission Reason for Admission: Syncope Discharge Discharge Diagnosis / Problem: Syncope, hypotension Discharge Goals Goal(s): Improve disease control, Diagnostic testing, Therapeutic intervention Activity Recommendations Activity Limitations: as noted below Exercise/Sports Limitations: gradually increase as tolerated Driving or Machine Use: No driving until seen in follow-up by your welfare visitor . Instructions / Follow-Up Instructions / Follow-Up You were admitted after you passed out from low blood pressure. You were given IV fluids and your blood pressure medications were stopped. Your blood pressure improved and you had no further problems with passing out. Your Coreg/ carvedilol was restarted at a lower dose of 12.5 mg twice daily. For now, do not take the losartan or amlodipine or Lasix. You had a 1 minute run of an arrhythmia on the heart monitor called ventricular tachycardia that did not cause you any problems. However, it is recommended that you potentially wear a 4 week cardiac event monitor. This can be arranged by your welfare visitor. Your blood sugars were on the lower side while here and therefore your Lantus dosing was decreased on discharge to 15 units twice a day. Once you go home, if the blood sugars start to rise, please contact your tank truck driver for advice on changing the dosing of your insulin. Please follow-up with your welfare visitor within 1 week. Please follow-up with your primary care physician within 1 week. Current Hospital Diet Patient's current hospital diet: AHA Diet (Heart Healthy), Diabetes Type 2 Diet Discharge Diet Recommended Diet: AHA Diet (Heart Healthy), Diabetes Type 2 Diet Procedures Procedures Performed: Chest x-ray CT dissection chest CT angiogram abdomen/pelvis CT head Pending Studies Studies pending at discharge: no Laboratory Results Hemoglobin A1c Test 09/06/17 06:22 Range/Units Estimated Average Glucose 160 mg/dl Hemoglobin A1c 7.2 H 4.5-5.6 % Medical Emergencies . Who to Call and When: Medical Emergencies: If at any time you feel your situation is an emergency, please call 911 immediately. . Non-Emergent Contact Non-Emergency issues call your: Primary Care Provider, Chiropractor Sole Practitioner Call Non-Emergent contact if: you have any medication questions . . "Provider Documentation" section prepared by Jackelyn Ireland. .
--- NOTE | 2017-10-21 13:15 | Discharge Summary ---
Discharge Summary Date of Service Oct 21, 2017. 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 Chronic diastolic CHF Microcytic anemia-mixed component of chronic disease and iron deficiency BPH Immunizations: Have You Had Influenza Vaccine: N/A History of Tetanus Vaccine?: Yes History of Pneumococcal: No History of Hepatitis B Vaccine: No Procedures: Chest x-ray CT dissection chest CT angiogram abdomen/pelvis CT head Echocardiogram-limited Consultations: Cardiology Medication Reconciliation New Medications: Carvedilol (Carvedilol) 12.5 Mg Tab 12.5 MG PO BID for 30 Days, #60 TAB Changed Medications: Furosemide (Lasix) 20 Mg Tab 20 MG PO QAM PRN for weight gain >2 lbs in 24 hrs for 30 Days (Medication details modified) Insulin Glargine (Lantus Solostar) 100 Unit/Ml Inj 15 UNITS SC BID for 30 Days (Changed from: 35 UNITS) And increase as needed for high glucose readings as per your Customs Verifier Metformin Hcl (Glucophage) 500 Mg Tab 500 MG PO DAILY AT DINNER for 30 Days, TAB (Medication details modified) DO NOT START TAKING UNTIL 10/22/17 Metformin Hcl (Glucophage) 1,000 Mg Tab 1000 MG PO DAILY AT BREAKFAST for 30 Days, TAB (Medication details modified) DO NOT START TAKING UNTIL 10/22/17 Continued Medications: Allopurinol (Zyloprim) 300 Mg Tab 300 MG PO QAM, TAB Aspirin (Aspirin Ec) 81 Mg Tab 81 MG PO QPM Atorvastatin (Lipitor) 80 Mg Tab 80 MG PO DAILY, TAB Cholecalciferol (Vitamin D3) 2,000 Unit Cap 1 CAP PO DAILY Clopidogrel Bisulfate (Clopidogrel) 75 Mg Tab 75 MG PO QAM for 30 Days, #30 TAB 9 Refills Finasteride (Proscar) 5 Mg Tab 5 MG PO QAM, TAB Fish Oil (Dexter-3) 1 Ea Cap 1 CAP PO BID, CAP Ocuvite Preservision (Ocuvite Preservision) 1 Tab Tab 2 TAB PO DAILY, TAB Prednisolone Acetate (Ophth) (Prednisolone Acetate) 1 % Cecilia 1 DROPS OP QID Discontinued Medications: Amlodipine (Norvasc) 5 Mg Tab 5 MG PO DAILY, TAB Carvedilol (Coreg) 25 Mg Tab 25 MG PO BIDM, TAB Losartan Potassium (Cozaar) 25 Mg Tab 25 MG PO DAILY, TAB Discharge Exam Patient feeling very well today. No lightheadedness, no chest pain or shortness of breath. No significant events overnight on telemetry with normal sinus rhythm in the 70s-90s. He is ambulating and feeling well. Blood pressures are acceptable. Physical Exam General Appearance: WD/WN, no apparent distress Eyes: normal inspection, EOMI, sclerae normal ENT: hearing grossly normal Neck: trachea midline Respiratory/Chest: lungs clear, normal breath sounds, no respiratory distress, no accessory muscle use Cardiovascular: regular rate, rhythm, no edema, no murmur Abdomen: normal bowel sounds, non tender, soft, no organomegaly Extremities: non-tender, normal inspection, no pedal edema, no calf tenderness Neurologic/Psychiatric: alert, normal mood/affect, oriented x 3 Skin: normal color, warm/dry, no rash Review of Systems: Constitutional: No problem reported Eyes: No problem reported ENT: No problem reported Respiratory: No problem reported Cardiovascular: No problem reported Abdomen: No problem reported Musculoskeletal: No problem reported Genitourinary - Male: No problem reported Neurologic: No problem reported Psychiatric: No problem reported Endocrine: No problem reported Hematologic / Lymphatic: No problem reported Integumentary: No problem reported Hospital Course This patient is a 77 y/o M Hx HTN, HPL, DM II, gout, KEN, obesity, CAD - NSTEMI 07/2017 - recent complex history of stenting followed by coronary artery and type A aortic dissection with resulting transfer to [facility]. He is currently under the care of [facility] cardiology. The pt was on route to the technical specialist cytogenetics's office and reports that he felt as though he was car sick on the ride over. He became increasingly lightheaded and diaphoretic after arriving at the office and then suffered a syncopal episode where he was notably hypotensive. He responded to a fluid bolus and was directed to the ER. It is thought that his symptoms may be related to recent antihypertensive prescriptions. He denies any CP or SOB. An EKG was obtained at the cardiology office and then on again on arrival to the ER which showed a normal sinus rhythm. An initial troponin was negative. Labs are otherwise consistent with dehydration, mild ARF and mild lactic elevation, as well as hypomagnesemia. 1) Syncope/nonsustained ventricular tachycardia/hypotension-possibly due to recent medications, dehydration given the CORTNEY and resultant hypotension. Serial troponin 3 negative. All antihypertensives were held initially, and blood pressure has improved. Telemetry with 1 minute run of ventricular tachycardia that was asymptomatic on the first evening and not likely to have been the cause of his syncope as he had a regular rate and rhythm on examination during the event as per cardiology notes. There is no evidence of recurrent aortic dissection on imaging studies. He had a previous trace pericardial effusion on echocardiogram after aortic dissection several weeks ago which is now resolved. Echocardiogram with preserved EF, no further pericardial effusion He was restarted on a lower dose of carvedilol 12.5 mg p.o. twice daily and blood pressures tolerated this well. -He will be discharged home on the lower dose of carvedilol, but will continue to hold the losartan, amlodipine, and Lasix -Recent anemia may also be playing a role-workup as below -Appreciate cardiology [id number] with cardiology in the office within 1 week -Continue telemetry monitoring and cardiology recommends 4 week event monitor after discharge -Replaced magnesium on admission 2) CORTNEY in the setting of CKD stage II-III-this is likely prerenal - IVF provided and now resolved -Continue to hold losartan, Norvasc, Lasix for now 3) CAD/chronic diastolic CHF recent NSTEMI with complication of coronary artery dissection and aortic dissection now status post further stenting. Was volume down upon admission and was gently hydrated. No evidence of volume overload at this time -cont Statin, ASA, Plavix -Holding home Lasix for now 4) DM II -hemoglobin A1c last month was 7.2% which is well controlled for his age and comorbidities. His blood glucose was actually very well controlled with receiving no long-acting insulin the first 24 hours of admission likely due to eating a very strict diet in the hospital. -recommended starting back on Lantus 15 units twice a day upon discharge but he can increase as needed once he goes home -He will call his endocrinology nurse practitioner as needed for hyperglycemia at home 5) microcytic anemia-microcytosis ongoing for years. No recent iron studies in many years. Iron studies here are more consistent with anemia of chronic disease. His colonoscopy last year with a few polyps but no active bleeding; he had a tubular adenoma on pathology. He is down 3 g from 1 month ago. Some of this may be due to anemia of chronic disease and prolonged hospitalization recently. But was also placed on Plavix in addition to his aspirin for his stents and could have a slow GI bleed. B12 and folate here were normal -Hemoccult stool ordered but never collected during admission-recommend doing this as an outpatient -Recommend outpatient GI follow-up -Follow CBC as an outpatient 6) BPH-stable -Continue finasteride 7) gout-stable -Continue allopurinol for prophylaxis Stable for discharge to home Total Time Spent: Greater than 30 minutes This includes examination of the patient, discharge planning, medication reconciliation, and communication with other providers. Discharge Instructions Please refer to the electronic Patient Visit Report (Discharge Instructions) for additional information. Follow-Up With PCP within 1-2 weeks With cardiology within 1-2 weeks Additional Copies To Elmer Tobar M.D.; Emmanuel Singh MD
[2017-10-21 13:20] VITALS: BP 125/74; PULSE 75; TEMP 36.6; O2SAT 96
[2017-10-21] MEDS ORDERED: CARVEDILOL 12.5 MG TAB PO SCH (21:00)
[2017-10-21] MEDS ORDERED: INSULIN GLARGINE SOLOSTAR 100 UNITS/ML 3 ML PEN SC SCH (21:00)
== END 2017-10-21 14:07 | disposition home or self-care (01) ==
LOC: EDBD 15:23 → C.EDB 15:24 → C.2T 19:01 → ENRESERV 19:18
PROVIDERS: ADMIT Internal Medicine; ATTEND Family Medicine
DX: R55 Syncope and collapse (principal); I95.9 Hypotension, unspecified; I11.0 Hypertensive heart disease with heart failure; E78.5 Hyperlipidemia, unspecified; E11.9 Type 2 diabetes mellitus without complications; M10.9 Gout, unspecified; G47.33 Obstructive sleep apnea (adult) (pediatric); E66.9 Obesity, unspecified; I25.10 Atherosclerotic heart disease of native coronary artery without angina pectoris; E83.42 Hypomagnesemia; I47.2 Ventricular tachycardia; N17.9 Acute kidney failure, unspecified; I50.32 Chronic diastolic (congestive) heart failure; D50.9 Iron deficiency anemia, unspecified; N40.0 Benign prostatic hyperplasia without lower urinary tract symptoms; Z86.73 Personal history of transient ischemic attack (TIA), and cerebral infarction without residual deficits; Z79.899 Other long term (current) drug therapy; Z79.82 Long term (current) use of aspirin; Z79.4 Long term (current) use of insulin; Z79.84 Long term (current) use of oral hypoglycemic drugs

== ENCOUNTER 2017-10-24 13:49 | Observation (INO) | payer OTHER ==
[~2017-10-24] VITALS: Ht 177.8 cm; Wt 106.0 kg
[~2017-10-24 13:49] MED LIST changes: +CRG125 PO; +METF-384 PO; -METO25TA56 PO; -NVLGI/PEN SQ
[2017-10-24] MEDS ORDERED: SODIUM CHLORIDE 0.9% 1000ML 1,000 ML IV STA (14:05)
[2017-10-24 14:15] LABS: BASO % 0.4 %; BASO ABS # 0.03 K/uL (0-0.2); EOS % 4.4 %; EOS ABS # 0.35 K/uL (0-0.5); HEMOGLOBIN 10.6 g/dL (14.0-18.0); IG# 0.03 K/uL (0.00-0.02); LYMPH % 16.4 %; MEAN CORPUSCULAR HEMOGLOBIN 24.3 pg (25-34); MEAN CORPUSCULAR HGB CONC 31.2 g/dl (32-36); MEAN PLATELET VOLUME 9.2 fL (7.4-10.4); MONO % 6.8 %; MONO ABS # 0.54 K/uL (0.11-0.59); NEUT % 71.6 %; NEUT ABS # 5.66 K/uL (1.4-6.5); PLATELET COUNT 221 K/uL (130-400); RED CELL DISTRIBUTION WIDTH CV 17.3 % (11.5-14.5); RED CELL DISTRIBUTION WIDTH SD 49.2 fL (36.4-46.3); WHITE BLOOD COUNT 7.91 K/uL (4.8-10.8)
--- NOTE | 2017-10-24 14:16 | EMERGENCY ROOM VISIT NOTE ---
History Report prepared by Edgardo: Rajiv Myers Under the Supervision of: Dr. Cristian Dominguez M.D. First contact with patient: 13:56 Chief Complaint: CARDIAC ASSESSMENT History of Present Illness The patient is a 77 year old male who presents to the Emergency Room with complaints of resolved lightheadedness and syncope occurring today. The patient reports that he was in the office of Dr. Singh - Cardiology today, noting that he had cardiac stents placed recently. He states that he suddenly became lightheaded and lost consciousness, and the next thing he remembers is lying in the gurney. He states that he no longer feels lightheaded. He denies racing heart, SOB, tingling or numbness, abdominal pain, nausea or vomiting, urinary symptoms, leg swelling, biting his tongue, problems moving his extremities, or difficulty with bowel movements. He notes a dry cough. The patient reports that he experienced the same symptoms but more severely last week, noting that he was in the hospital from 5 days ago to 3 days ago. He denies a history of seizures. Source of History: patient Onset: today Position: other (global) Quality: other (syncope, lightheadedness) Timing: resolved Associated Symptoms: + cough, No SOB, No nausea, No vomiting, No abdominal pain, No urinary symptoms, No numbness Note: denies biting tongue or difficulty moving extremities Review of Systems See HPI for pertinent positives and negatives. A total of ten systems were reviewed and were otherwise negative. Past Medical & Surgical Medical Problems: (1) Benign prostatic hyperplasia (2) CAD (coronary artery disease) (3) Diabetes mellitus type 2 (4) Essential hypertension (5) Gouty arthropathy (6) Hyperlipidemia (7) Lightheaded (8) Neoplasm of parotid gland (9) Syncope and collapse Family History Patient reports no known family medical history. Social History Smoking Status: Never Smoker Alcohol Use: none Drug Use: none Marital Status: Occupation Status: retired Current/Historical Medications Scheduled Allopurinol (Zyloprim), 300 MG PO QAM Amlodipine (Norvasc), 5 MG PO DAILY Aspirin (Aspirin Ec), 81 MG PO QPM Atorvastatin (Lipitor), 80 MG PO DAILY Carvedilol (Coreg), 25 MG PO BID Cholecalciferol (Vitamin D3), 2,000 UNITS PO DAILY Clopidogrel Bisulfate (Clopidogrel), 75 MG PO QAM Finasteride (Proscar), 5 MG PO QAM Furosemide (Lasix), 20 MG PO QAM Insulin Aspart (Novolog Flexpen), 100 UNITS SC DAILY Insulin Glargine (Lantus Solostar), 85 UNITS SC QPM Lisinopril (Prinivil), 20 MG PO DAILY Metformin Hcl (Glucophage), 500 MG PO DAILY AT DINNER Metformin Hcl (Glucophage), 1,000 MG PO DAILY AT BREAKFAST Ocuvite Preservision (Ocuvite Preservision), 2 TAB PO DAILY Prednisolone Acetate (Ophth) (Prednisolone Acetate), 1 DROPS OP QID Allergies Coded Allergies: No Known Allergies (Verified , 10/24/17) Physical Exam Vital Signs Date Time Temp Pulse Resp B/P (MAP) Pulse Ox O2 Delivery O2 Flow Rate FiO2 10/24/17 17:08 36.5 72 18 147/67 96 10/24/17 15:54 70 20 127/66 94 Room Air 10/24/17 14:10 128/58 114/63 100/50 10/24/17 14:09 Room Air 10/24/17 14:00 67 10/24/17 13:59 36.7 58 113/59 Room Air 10/24/17 13:59 97 Room Air Physical Exam GENERAL: Awake, alert, well-appearing, NAD HENT: Normocephalic, atraumatic. EYES: Normal conjunctiva. Sclera non-icteric. PERRL. No anisocoria. NECK: Supple. No nuchal rigidity. FROM. RESPIRATORY: CTAB, no rhonchi, wheezing, crackles CARDIAC: RRR, no MRG ABDOMEN: Soft, NTND, BS+ MSK: No chest wall TTP, no LE edema. Midline sternotomy scar. NEURO: GCS 15, CN 2-12 intact, moves all 4s on command. Speaks out of right side of mouth. SKIN: No rash or jaundice noted. Medical Decision & Procedures ER Provider Diagnostic Interpretation: Radiology results as stated below per my review and radiologist interpretation: CHEST ONE VIEW PORTABLE CLINICAL HISTORY: EVALUATE ALTERED MENTAL STATUS/WEAKNESS COMPARISON STUDY: Chest CT and chest radiograph October 19, 2017. FINDINGS: There is no pneumothorax or pleural effusion. There is no evidence for pulmonary edema or pneumonia. Several left upper lobe nodules are better depicted on chest CT of October 19, 2017. These are unchanged. The appearance of the chest is unchanged. IMPRESSION: 1. Redemonstration of several suspicious left upper lobe nodules which are worrisome for malignancy. 2. No acute cardiopulmonary findings. Electronically signed by: Juwan Benitez M.D. 10/24/2017 3:24 PM Dictated Date/Time: 10/24/2017 3:[address] OF THE HEAD WITHOUT CONTRAST CLINICAL HISTORY: Altered mental status. Weakness. COMPARISON STUDY: Head CT October 19, 2017. CT DOSE: 537.48 mGy.cm TECHNIQUE: Helical axial images of the head were obtained without IV contrast. Automated exposure control was utilized for the study. A dose lowering technique was utilized adhering to the principles of ALARA. FINDINGS: No acute intracranial hemorrhage, midline shift or mass effect is present. 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 Ventricular system is normal for age. Basilar cisterns are patent. There are no extra axial collections. There are no findings to suggest acute dural sinus thrombosis or acute territorial infarct. There are no significant calvarial abnormalities. Visualized portions of the sinuses and mastoid air cells are clear. IMPRESSION: No acute intracranial findings. No change since previous exam. Electronically signed by: Juwan Benitez M.D. 10/24/2017 3:01 PM Dictated Date/Time: 10/24/2017 2:58 PM Laboratory Results 10/24/17 14:00 Red Blood Count 4.36, Mean Corpuscular Volume 78.0, Mean Corpuscular Hemoglobin 24.3, Mean Corpuscular Hemoglobin Concent 31.2, Mean Platelet Volume 9.2, Neutrophils (%) (Auto) 71.6, Lymphocytes (%) (Auto) 16.4, Monocytes (%) (Auto) 6.8, Eosinophils (%) (Auto) 4.4, Basophils (%) (Auto) 0.4, Neutrophils # (Auto) 5.66, Lymphocytes # (Auto) 1.30, Monocytes # (Auto) 0.54, Eosinophils # (Auto) 0.35, Basophils # (Auto) 0.03 10/24/17 14:00 Test 10/24/17 14:00 10/24/17 14:02 White Blood Count 7.91 K/uL (4.8-10.8) Red Blood Count 4.36 M/uL (4.7-6.1) Hemoglobin 10.6 g/dL (14.0-18.0) Hematocrit 34.0 % (42-52) Mean Corpuscular Volume 78.0 fL (80-100) Mean Corpuscular Hemoglobin 24.3 pg (25-34) Mean Corpuscular Hemoglobin Concent 31.2 g/dl (32-36) Platelet Count 221 K/uL (130-400) Mean Platelet Volume 9.2 fL (7.4-10.4) Neutrophils (%) (Auto) 71.6 % Lymphocytes (%) (Auto) 16.4 % Monocytes (%) (Auto) 6.8 % Eosinophils (%) (Auto) 4.4 % Basophils (%) (Auto) 0.4 % Neutrophils # (Auto) 5.66 K/uL (1.4-6.5) Lymphocytes # (Auto) 1.30 K/uL (1.2-3.4) Monocytes # (Auto) 0.54 K/uL (0.11-0.59) Eosinophils # (Auto) 0.35 K/uL (0-0.5) Basophils # (Auto) 0.03 K/uL (0-0.2) RDW Standard Deviation 49.2 fL (36.4-46.3) RDW Coefficient of Variation 17.3 % (11.5-14.5) Immature Granulocyte % (Auto) 0.4 % Immature Granulocyte # (Auto) 0.03 K/uL (0.00-0.02) Prothrombin Time 10.6 SECONDS (9.0-12.0) Prothromb Time International Ratio 1.0 (0.9-1.1) Activated Partial Thromboplast Time 25.1 SECONDS (21.0-31.0) Partial Thromboplastin Ratio 1.0 Anion Gap 10.0 mmol/L (3-11) Est Creatinine Clear Calc Drug Dose 64.8 ml/min Estimated GFR () 71.0 Estimated GFR (Non- 61.3 BUN/Creatinine Ratio 19.4 (10-20) Calcium Level 8.4 mg/dl (8.5-10.1) Phosphorus Level 3.1 mg/dl (2.5-4.9) Magnesium Level 1.6 mg/dl (1.8-2.4) Total Bilirubin 0.4 mg/dl (0.2-1) Direct Bilirubin 0.1 mg/dl (0-0.2) Aspartate Amino Transf (AST/SGOT) 12 U/L (15-37) Alanine Aminotransferase (ALT/SGPT) 23 U/L (12-78) Alkaline Phosphatase 65 U/L (45-117) Troponin I < 0.015 ng/ml (0-0.045) Total Protein 6.8 gm/dl (6.4-8.2) Albumin 2.8 gm/dl (3.4-5.0) Thyroid Stimulating Hormone (TSH) 1.130 uIu/ml (0.300-4.500) Bedside Glucose 113 mg/dl (70-99) Laboratory results reviewed by me Medications Administered Medications (Trade) Dose Ordered Sig/Woody Route Start Time Stop Time Status Last Admin Dose Admin Sodium Chloride 1,000 ml @ 999 mls/hr Q1H1M STAT IV 10/24/17 14:05 10/24/17 15:05 DC 10/24/17 14:20 999 MLS/HR Calcium Carbonate (Tums Chew Tab) 1,500 mg ONE STAT PO 10/24/17 14:47 10/24/17 14:48 DC 10/24/17 15:12 1,500 MG Magnesium Oxide (Mag-Ox Tab) 800 mg ONE STAT PO 10/24/17 14:47 10/24/17 14:48 DC 10/24/17 15:12 800 MG ECG Per My Interpretation Indication: syncope Rate (beats per minute): 67 Rhythm: normal sinus Findings: left axis deviation, other (RBBB pattern. Wide QRS.) Comparison ECG Date: 10/19/17 Change: RBBB is old. ED Course 1400: The patient was evaluated in room C4. A complete history and physical exam was performed. 1506: I consulted Dr. Briceno - Cardiology. He agrees that the patient should stay in the hospital. 1517: I consulted Dr. Forbes - [facility] Hospitalist. She will reevaluate the patient for hospitalization. Medical Decision Nursing notes reviewed. Ancillary studies and prior records reviewed. The patient is a 77 year old male who presents to the Emergency Room with complaints of resolved lightheadedness and syncope occurring today. Differential diagnosis: Etiologies such as vasovagal event, infection, hypoglycemia, electrolyte abnormalities, cardiac sources, intracerebral event, toxicologic, neurologic, as well as others were entertained. Patient was seen and evaluated the bedside. The patient does have a known history of prior cardiac D disease with also a prior type a dissection. Patient was apparently seen after an extensive workup as an inpatient very recently. The patient did have an episode of syncope. Patient states that he did feel lightheaded. The patient denies any chest pain shortness of breath numbness tingling or focal weakness. On exam the patient is well-appearing. The patient does talk on the right side of his mouth but he states that this is not related to an acute neurologic problem but that he had a prior procedure done on the left side of his face which results in this. Patient did blood work completed, EKG, troponin, chest x-ray and a CT of the brain. Patient CT is unremarkable. EKG does not show any acute arrhythmia or ischemia. Patient does have a right bundle branch block which is old. The patient's blood work is fairly unremarkable. Patient to have mild hypocalcemia which is repleted. Seen with hypomagnesemia. Patient does have chronic anemia. Patient troponin is not elevated. I did speak with the woodyard crane operator who stated that he did syncopized and were having difficulty obtaining a blood pressure at that time. I did review previous imaging which did not even comment on a possible dissection or aneurysm. I did speak with the on-call hospitalist and stated that I spoke with the woodyard crane operator and recommended telemetry. There was also possibility given that the patient had nonsustained V. tach during his most recent stay. Patient does not have any pacemaker or cardio defibrillator. Patient was admitted to the medicine service. Medication Reconcilliation Current Medication List: was personally reviewed by me Blood Pressure Screening Patient's blood pressure: Elevated blood pressure referred to hospitalist Consults Time Called: 1500 Consulting Physician: Dr. Briceno - Cardiology Returned Call: [address] Briceno - Cardiology. He agrees that the patient should stay in the hospital. Additional Consults: Time Called: 1508 Consulted Physician: Dr. Forbes - [facility] Hospitalist Returned Call: [phone] Additional Comments: I consulted Dr. Forbes [facility] Hospitalist. She will reevaluate the patient for hospitalization. Impression Primary Impression: Syncope Additional Impressions: Lightheaded Anemia Hypocalcemia Hypomagnesemia Scribe Attestation The scribe's documentation has been prepared under my direction and personally reviewed by me in its entirety. I confirm that the note above accurately reflects all work, treatment, procedures, and medical decision making performed by me. Departure Information Dispostion Being Evaluated By Hospitalist Elmer Ramirez M.D. (PCP) Patient Instructions My [facility] [address] Problem Qualifiers Primary Impression: Syncope Syncope type: unspecified Qualified Codes: R55 - Syncope and collapse Additional Impressions: Anemia Anemia type: unspecified type Qualified Codes: D64.9 - Anemia, unspecified
[2017-10-24 14:37] LABS: PTT PATIENT 25.1 SECONDS (21.0-31.0)
[2017-10-24] MEDS ORDERED: FURO-85 PO (14:37)
[2017-10-24] MEDS ORDERED: CARV25TA PO (14:37)
[2017-10-24] MEDS ORDERED: AMLO5TAB3 PO (14:37)
[2017-10-24] MEDS ORDERED: INSDGIPEN SC (14:37)
[2017-10-24] MEDS ORDERED: LISI20TA3 PO (14:37)
[2017-10-24] MEDS ORDERED: NVLGIPEN SC (14:37)
[2017-10-24 14:44] LABS: ALBUMIN 2.8 gm/dl (3.4-5.0); ALKALINE PHOSPHATASE 65 U/L (45-117); ALT/SGPT 23 U/L (12-78); AST/SGOT 12 U/L (15-37); BLOOD UREA NITROGEN 22 mg/dl (7-18); CALCIUM 8.4 mg/dl (8.5-10.1); CARBON DIOXIDE 23 mmol/L (21-32); CREATININE 1.14 mg/dl (0.60-1.40); GLUCOSE 105 mg/dl (70-99); PHOSPHORUS 3.1 mg/dl (2.5-4.9); SODIUM 138 mmol/L (136-145); TOTAL PROTEIN 6.8 gm/dl (6.4-8.2)
[2017-10-24] MEDS ORDERED: MAGNESIUM OXIDE 400 MG TAB PO STA (14:47)
[2017-10-24] MEDS ORDERED: CALCIUM CARBONATE 500 MG CHEWABLE PO STA (14:47)
--- NOTE | 2017-10-24 15:03 | DIAGNOSTIC IMAGING REPORT ---
CT OF THE HEAD WITHOUT CONTRAST CLINICAL HISTORY: Altered mental status. Weakness. COMPARISON STUDY: Head CT October 19, 2017. CT DOSE: 537.48 mGy.cm TECHNIQUE: Helical axial images of the head were obtained without IV contrast. Automated exposure control was utilized for the study. A dose lowering technique was utilized adhering to the principles of ALARA. FINDINGS: No acute intracranial hemorrhage, midline shift or mass effect is present. 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 Ventricular system is normal for age. Basilar cisterns are patent. There are no extra axial collections. There are no findings to suggest acute dural sinus thrombosis or acute territorial infarct. There are no significant calvarial abnormalities. Visualized portions of the sinuses and mastoid air cells are clear. IMPRESSION: No acute intracranial findings. No change since previous exam. Electronically signed by: Juwan Benitez M.D. 10/24/2017 3:01 PM Dictated Date/Time: 10/24/2017 2:58 PM
--- NOTE | 2017-10-24 15:25 | DIAGNOSTIC IMAGING REPORT ---
CHEST ONE VIEW PORTABLE CLINICAL HISTORY: EVALUATE ALTERED MENTAL STATUS/WEAKNESS COMPARISON STUDY: Chest CT and chest radiograph October 19, 2017. FINDINGS: There is no pneumothorax or pleural effusion. There is no evidence for pulmonary edema or pneumonia. Several left upper lobe nodules are better depicted on chest CT of October 19, 2017. These are unchanged. The appearance of the chest is unchanged. IMPRESSION: 1. Redemonstration of several suspicious left upper lobe nodules which are worrisome for malignancy. 2. No acute cardiopulmonary findings. Electronically signed by: Juwan Benitez M.D. 10/24/2017 3:24 PM Dictated Date/Time: 10/24/2017 3:22 PM
[2017-10-24] MEDS ORDERED: FUROSEMIDE 20 MG TAB PO PRN ×2 (16:15)
[2017-10-24] MEDS ORDERED: IV FLUIDS COMPLETED PRN (16:15)
[2017-10-24] MEDS ORDERED: MAGNESIUM HYDROXIDE SUSP 30 ML UDC PO PRN (16:15)
[2017-10-24] MEDS ORDERED: ACETAMINOPHEN 325 MG TAB PO PRN (16:15)
[2017-10-24] MEDS ORDERED: ONDANSETRON INJ 2 MG/ML 2 ML VIAL IV PRN (16:15)
--- NOTE | 2017-10-24 16:27 | History and Physical ---
History & Physical Date & Time of Service: Oct 24, 2017 at 16:11 Chief Complaint: Primary Care Physician: Elmer Tobar M.D. History of Present Illness Source: patient 77 y/o M who was sent over from Dr. Singh's office for syncopal episode. Pt states that he noted on the way to the office that he felt he did not have as much energy today as he had the last few weeks. He had otherwise had a normal day for himself. He ate breakfast and lunch prior to his appt without issue. His BS was in the 150s this AM and 110s prior to lunch. He checks his BS QID and this is around his usual. During his appt, he suddenly became diaphoretic and based out. His BP had been low prior to this when he was checked in, roughly 90s systolic, but nursing had difficulty getting any reading after the syncope. Pt woke up during attempts to put in an IV and was brought to the ED for further eval. Pt denies fever, SOB, chest pain, abd pain , n/v/c/d, LE pain or swelling. Pt states that yesterday was a normal day for him. He was able to do his usual activities. He has been d/c'd from rehab recently and felt things were going well other than feeling a bit less energetic this AM. Pt had a similar episode last Sunday, also while he was in seeing Dr. Singh. He was sent here for further eval and work-up was neg, including at CTA for aortic dissection and ECHO. It was noted by Dr. Barone that pt had a 60sec run of vtach while he was sleeping and was asx with this. Apparently that strip was not entered into the chart, but the event was not repeated. Pt was d/c'd home with changes to his HTN /CAD meds. These were implemented by his quite precisely and he has been following his new routine daily. Pt is on a restricted carb diet since yesterday for an upcoming PET scan on Sunday with [facility] [place] [place]. He has hx of parotid cancer s/p resection and there has been a pulmonary nodule found of unknown significance, which is the reason for the upcoming PET scan. Per Dr. Singh, pt has had several stents placed in the last few months. He was also a transfer to [facility] [place] [place] for aortic dissection. It was found to be a small dissection which did not require surgical interventions, but was rather being watched. After this work-up, pt was sent to rehab as noted above. Past Medical/Surgical History DM HTN Hyperlipidemia Gout BPH CAD s/p stents Recent aortic dissection Parotid neoplasm Lung nodule Family History Family history was reviewed; no changes noted. Neg for ND/CVA Social History Smoking Status: Former Smoker (quit in the 60s) Alcohol Use: none Drug Use: none Marital Status: Housing status: lives with family Occupational Status: retired Immunizations History of Influenza Vaccine: N/A History of Tetanus Vaccine?: Yes History of Pneumococcal: No History of Hepatitis B Vaccine: No Allergies Coded Allergies: No Known Allergies (Verified , 10/24/17) Home Medications Scheduled Allopurinol (Zyloprim), 300 MG PO QAM Amlodipine (Norvasc), 5 MG PO DAILY Aspirin (Aspirin Ec), 81 MG PO QPM Atorvastatin (Lipitor), 80 MG PO DAILY Carvedilol (Coreg), 25 MG PO BID Cholecalciferol (Vitamin D3), 2,000 UNITS PO DAILY Clopidogrel Bisulfate (Clopidogrel), 75 MG PO QAM Finasteride (Proscar), 5 MG PO QAM Furosemide (Lasix), 20 MG PO QAM Insulin Aspart (Novolog Flexpen), 100 UNITS SC DAILY Insulin Glargine (Lantus Solostar), 85 UNITS SC QPM Lisinopril (Prinivil), 20 MG PO DAILY Metformin Hcl (Glucophage), 500 MG PO DAILY AT DINNER Metformin Hcl (Glucophage), 1,000 MG PO DAILY AT BREAKFAST Ocuvite Preservision (Ocuvite Preservision), 2 TAB PO DAILY Prednisolone Acetate (Ophth) (Prednisolone Acetate), 1 DROPS OP QID Review of Systems Pertinent positives and negatives reviewed in HPI--all others negative Physical Exam Vital Signs Date Time Temp Pulse Resp B/P (MAP) Pulse Ox O2 Delivery O2 Flow Rate FiO2 10/24/17 15:54 70 20 127/66 94 Room Air 10/24/17 14:10 128/58 114/63 100/50 10/24/17 14:09 Room Air 10/24/17 14:00 67 10/24/17 13:59 36.7 58 113/59 Room Air 10/24/17 13:59 97 Room Air General Appearance: WD/WN, no apparent distress Head: normocephalic, atraumatic Eyes: normal inspection, sclerae normal Respiratory/Chest: normal breath sounds, no respiratory distress Cardiovascular: regular rate, rhythm, no edema Abdomen/GI: non tender, soft Extremities/Musculoskelatal: no calf tenderness, no pedal edema Neurologic/Psych: alert, normal mood/affect, oriented x 3 Skin: normal color, warm/dry Diagnostics Laboratory Results Results Past 24 Hours Test 10/24/17 14:00 10/24/17 14:02 Range/Units White Blood Count 7.91 4.8-10.8 K/uL Red Blood Count 4.36 4.7-6.1 M/uL Hemoglobin 10.6 14.0-18.0 g/dL Hematocrit 34.0 42-52 % Mean Corpuscular Volume 78.0 80-100 fL Mean Corpuscular Hemoglobin 24.3 25-34 pg Mean Corpuscular Hemoglobin Concent 31.2 32-36 g/dl Platelet Count 221 130-400 K/uL Mean Platelet Volume 9.2 7.4-10.4 fL Neutrophils (%) (Auto) 71.6 % Lymphocytes (%) (Auto) 16.4 % Monocytes (%) (Auto) 6.8 % Eosinophils (%) (Auto) 4.4 % Basophils (%) (Auto) 0.4 % Neutrophils # (Auto) 5.66 1.4-6.5 K/uL Lymphocytes # (Auto) 1.30 1.2-3.4 K/uL Monocytes # (Auto) 0.54 0.11-0.59 K/uL Eosinophils # (Auto) 0.35 0-0.5 K/uL Basophils # (Auto) 0.03 0-0.2 K/uL RDW Standard Deviation 49.2 36.4-46.3 fL RDW Coefficient of Variation 17.3 11.5-14.5 % Immature Granulocyte % (Auto) 0.4 % Immature Granulocyte # (Auto) 0.03 0.00-0.02 K/uL Prothrombin Time 10.6 9.0-12.0 SECONDS Prothromb Time International Ratio 1.0 0.9-1.1 Activated Partial Thromboplast Time 25.1 21.0-31.0 SECONDS Partial Thromboplastin Ratio 1.0 Sodium Level 138 136-145 mmol/L Potassium Level 4.0 3.5-5.1 mmol/L Chloride Level 105 98-107 mmol/L Carbon Dioxide Level 23 21-32 mmol/L Anion Gap 10.0 3-11 mmol/L Blood Urea Nitrogen 22 7-18 mg/dl Creatinine 1.14 0.60-1.40 mg/dl Est Creatinine Clear Calc Drug Dose 64.8 ml/min Estimated GFR () 71.0 Estimated GFR (Non- 61.3 BUN/Creatinine Ratio 19.4 10-20 Random Glucose 105 70-99 mg/dl Calcium Level 8.4 8.5-10.1 mg/dl Phosphorus Level 3.1 2.5-4.9 mg/dl Magnesium Level 1.6 1.8-2.4 mg/dl Total Bilirubin 0.4 0.2-1 mg/dl Direct Bilirubin 0.1 0-0.2 mg/dl Aspartate Amino Transf (AST/SGOT) 12 15-37 U/L Alanine Aminotransferase (ALT/SGPT) 23 12-78 U/L Alkaline Phosphatase 65 45-117 U/L Troponin I < 0.015 0-0.045 ng/ml Total Protein 6.8 6.4-8.2 gm/dl Albumin 2.8 3.4-5.0 gm/dl Thyroid Stimulating Hormone (TSH) 1.130 0.300-4.500 uIu/ml Bedside Glucose 113 70-99 mg/dl Diagnostic Radiology CT head: neg for acute CXR: MARAIM nodules suspicious for malignancy EKG RBBB, seen prior Impression Assessment and Plan 77 y/o M who was admitted for observation on 10/24 after a syncopal event Syncope: second event in less than a week Recent work-up neg Pt with recent aortic dissection that was managed conservatively CTA done last week was neg for dissection and given no abd concerns since that time or prior to that admission, will hold on repeat imaging ECHO done on last admission neg, will not repeat CT head neg Many medications were changed on d/c 10/21 however these appear to have been followed, may need further adjustments BS stable this AM prior to event CBC, PRP WNL Trop neg x1, serials pending Cardiology c/s pending, possibly needs event monitor on d/c vs c/s for Dr. Farfan HTN: hypoTN in the office, however now WNL Monitor DM: lantus, metformin as prior Pulmonary nodules: PET this Sunday with [facility], will need rescheduled if ongoing inpt status CAD: continue asp/plavix given risk for holding these meds with stents and no signs of bleeding/dissection Resuscitation Status VTE Prophylaxis Will order VTE Prophylaxis: Yes Additional Copies To Elmer Tobar M.D.
[2017-10-24] MEDS ORDERED: DEXTROSE 50% 50 ML SYR IV PRN (17:30)
[2017-10-24] MEDS ORDERED: GLUCAGON FOR INJ 1 MG VIAL IM PRN (17:30)
[2017-10-24] MEDS ORDERED: CARBOHYDRATES FOR HYPOGLYCEMIA PO PRN (17:30)
[2017-10-24] MEDS ORDERED: GLUCOSE 10 TABS/TUBE PO PRN (17:30)
[2017-10-24] MEDS ORDERED: GLUCOSE 40% GEL 15 GM TUBE PO PRN (17:30)
[2017-10-24 17:54] VITALS: BP 136/75; PULSE 76; TEMP 36.8; O2SAT 98
[2017-10-24 18:00] VITALS: BP 136/75; PULSE 76; TEMP 36.8; O2SAT 98; Ht 177.8 cm; Wt 106.0 kg
--- NOTE | 2017-10-24 18:56 | Cardiology Consultation ---
Cardiology Consultation Date of Consultation: Oct 24, 2017. Requesting Physician: Dr. Forbes Attending Physician: Dr. Forbes Reason for Consultation: Syncope and hypotension Pt evaluation today including: conversation w/ patient, conversation w/ family , physical exam, chart review, lab review, review of studies, review of inpatient medication list, conversation w/ attending History of Present Illness Mr. 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 His recent complex cardiac history is summarized here: In July of 2017, he had a near syncopal episode after exercise and was hospitalized with a peak troponin 0.419. He preferred to be discharged home and have an outpatient ischemic evaluation which was performed on08/17/2017. Stress echo was abnormal with hypokinesis in the base to mid inferior wall. He also had abnormal exercise ECG findings. He preferred to postpone cardiac catheterization until after a family function [id number] and underwent coronary angiography on 09/05/2017. He was found to have severe CAD involving the OM2, PDA, and moderate to severe CAD involving the mid LAD. The LAD and circumflex system appeared to be small to medium in caliber. He underwent PCI of the PDA with a 2.25 x 15 mm NEVAEH. He then underwent another cardiac catheterization on 09/17/2017 to perform FFR of mid LAD with potential PCI of OM2. With engagement of the guide catheter, there was noted to be a dissection at the ostium of circumflex and extending into OM1 and mid segment. Aortic dissection was then noted extending above the cusps. PCI of the ostial circumflex was performed. Respiratory distress occurred he was intubated. Progression of dissection assume to cause limited flow in the LAD proximally and therefore LAD was stented with 2.5 x 18 mm NEVAEH. Distal circumflex/OM2 received 2 additional stents. CYDNEY 1 flow was present in the distal circumflex/ OM. He was transferred to [facility] and evaluated by CT surgery. Medical therapy was recommended. CTA and taylor confirmed type a dissection/mural hematoma from the aortic annulus to the level of the pulmonary arteries. He had a prolonged hospital course, being discharged on 10/03/2017. He required esmolol drip an additional antihypertensive medications and was transition to knife therapy 90 mg, lisinopril 20 mg, and carvedilol 25 mg twice daily. He was also incidentally found have a pulmonary nodule with PET scan pending. Due to decreased responsiveness, he underwent brain imaging which demonstrated acute infarcts in the left cerebellar hemisphere and right middle frontal gyrus with chronic lacunar infarcts in the right basal ganglia/thalamus. Neurology did not believe that this was causing his mental status and in EEG was without seizure activity. ICU delirium was thought to be the cause of his mental status change. He eventually recovered was sent to rehab, only to present to the outpatient cardiology clinic on 10/19/2017 with hypotension and then developed unresponsiveness while being evaluated at which point no blood pressure could be obtained but he maintained a pulse which was regular in the 50s to 70s and was noted to be in sinus rhythm on ECG. He was once again hospitalized and ISAIAS-inhibitor and calcium channel donaldo were discontinued while carvedilol was reduced to 12.5 mg twice daily. 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 Barone, but apparently this occurred while off of beta-donaldo therapy transiently. The ventricular tachycardia occurred while sleeping. He was discharged on 10/21/2017. He returned to the outpatient cardiology office today for evaluation. He stated that he had been feeling better on a daily basis with more energy each day and feeling stronger each day. He had not had any further lightheadedness, or syncope, and also denied chest pain, shortness of breath, near-syncope, palpitations, edema, or bleeding. His blood pressure at home has been well controlled without further hypotension since being discharged with systolic readings ranging from 126-147 and diastolic in the 60s to 70s. His heart rate has mostly been 70s with a low of 64 and high of 84 bpm. While in the office, after obtaining a review of systems, he once again stated that he was lightheaded. While attempting to check her blood pressure, which was unobtainable manually, he once again became unresponsive and was noted to be pale and quite diaphoretic. Once again, nursing staff immediately attempted IV access and IV fluids were administered. He was placed on a telemetry and noted to have a heart rate in the 50s. There were no discernible P waves and the rhythm appeared to be junctional. An ECG had not yet been checked by the time paramedics arrived. He would transiently regained consciousness, but remained drowsy. He continued to deny chest pain, and only reported lightheadedness. This patient visit occurred in the office with the decision made to have him once again hospitalized. Review of systems: As above. Review of systems otherwise negative/ unremarkable. Past Medical/Surgical History 1. CAD status post PCI 2. PDA PCI 09/05/2017 with 2.25 x 15 mm [place] NEVAEH. 3. Circumflex/OM and LAD PCI in the setting of coronary dissection 09/17/2017: Ostial circumflex into distal circumflex/OM2 with 3 overlapping NEVAEH (3 x 18, 2.5 x 23, 2.25 x 28). Ostial LAD 2.5 x 18 mm NEVAEH. 4. Type A aortic dissection during coronary angiography dissecting retrograde from coronary dissection on 09/17/2017. 5. Stroke 6. Hypertension 7. Dyslipidemia 8. Type 2 diabetes 9. Sleep apnea on CPAP QHS 10. Pulmonary nodule 11. 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 RBBB 14. Ventricular tachycardia Family History No known premature CAD. Social History Quit smoking greater than 50 years ago. No alcohol or drugs. Lives at home with his . Three children. His was present with him. Allergies Coded Allergies: No Known Allergies (Verified , 10/24/17) Medications Current Inpatient Medications Medications (Trade) Dose Ordered Sig/Woody Route Start Time Stop Time Status Last Admin Dose Admin Acetaminophen (Tylenol Tab) 650 mg Q4H PRN PO 10/24/17 16:15 11/23/17 16:14 Magnesium Hydroxide (Milk Of Magnesia Susp) 30 ml Q12H PRN PO 10/24/17 16:15 11/23/17 16:14 Ondansetron HCl (Zofran Inj) 4 mg Q6H PRN IV 10/24/17 16:15 11/23/17 16:14 Allopurinol (Zyloprim Tab) 300 mg QAM PO 10/25/17 09:00 11/24/17 08:59 UNV Aspirin (Ecotrin Tab) 81 mg QPM PO 10/24/17 21:00 11/23/17 20:59 UNV Atorvastatin Calcium (Lipitor Tab) 80 mg DAILY PO 10/25/17 09:00 11/24/17 08:59 UNV Clopidogrel Bisulfate (plAVix TAB) 75 mg QAM PO 10/25/17 09:00 11/24/17 08:59 UNV Finasteride (Proscar Tab) 5 mg QAM PO 10/25/17 09:00 11/24/17 08:59 UNV Furosemide (Lasix Tab) 20 mg QAM PRN PO 10/24/17 16:15 11/23/17 16:14 UNV Insulin Glargine (Lantus Solostar Pen) 15 units BID SC 10/24/17 21:00 11/23/17 20:59 Lisinopril (Zestril Tab) 20 mg DAILY PO 10/25/17 09:00 11/24/17 08:59 UNV Metformin HCl (Glucophage Tab) 1,000 mg DAILY PO 10/25/17 09:00 11/24/17 08:59 UNV Metformin HCl (Glucophage Tab) 500 mg HS PO 10/24/17 21:00 11/23/17 20:59 UNV Multivitamins/ Minerals (Multivitamin W/ Minerals Tab) 2 tab DAILY PO 10/25/17 09:00 11/24/17 08:59 UNV Prednisolone Acetate (Pred Forte 1% Oph Susp) 1 drops QID OP 10/24/17 17:00 11/23/17 16:59 UNV Non-Formulary Medication (Cholecalciferol (Vitamin D3)) 2,000 units DAILY PO 10/25/17 09:00 11/24/17 08:59 UNV Furosemide (Lasix Tab) 20 mg QAM PRN PO 10/24/17 16:15 11/23/17 16:14 UNV Miscellaneous (Iv Fluids Completed) 1 ea PRN PRN N/A 10/24/17 16:15 10/24/18 16:14 Glucose (Glucose 40% Gel) 15-30 GRAMS 15 GRAMS... UD PRN PO 10/24/17 17:30 11/23/17 17:29 Glucose (Glucose Chew Tab) 4-8 Tablets 4 Tabl... UD PRN PO 10/24/17 17:30 11/23/17 17:29 Dextrose (Dextrose 50% 50ML Syringe) 25-50ML 25ML FOR ... UD PRN IV 10/24/17 17:30 11/23/17 17:29 Glucagon (Glucagon Inj) 1 mg UD PRN IM 8/29/18 17:30 11/23/17 17:29 Carbohydrates (Carbohydrates For Hypoglycemia) 15-30 GRAMS 15 grams if BSG 54-69... UD PRN PO 10/24/17 17:30 11/23/17 17:29 Carvedilol (Coreg Tab) 3.125 mg BID PO 10/24/17 21:00 11/23/17 20:59 UNV Physical Exam Vital Signs Past 12 Hours Date Time Temp Pulse Resp B/P (MAP) Pulse Ox O2 Delivery O2 Flow Rate FiO2 10/24/17 17:54 36.8 76 18 136/75 (95) 98 Room Air 10/24/17 17:08 36.5 72 18 147/67 96 10/24/17 15:54 70 20 127/66 94 Room Air 10/24/17 14:10 128/58 114/63 100/50 10/24/17 14:09 Room Air 10/24/17 14:00 67 10/24/17 13:59 36.7 58 113/59 Room Air 10/24/17 13:59 97 Room Air Gen.: Initially no acute distress and alert and oriented. He then became unresponsive. HEENT: Anicteric sclera. Neck: No appreciable JVD. Cardiac: Regular. Normal S1-S2. No audible murmurs, rubs, or gallops. Pulmonary: Clear to auscultation bilaterally without wheezes, rales, or rhonchi. (Anterior auscultation) Abdomen: Soft and nondistended. Extremities: 2+ radial pulses bilaterally. No cyanosis. No pitting edema. Psychiatric: Affect appeared appropriate prior to his unresponsive episode. Data Laboratory Results: Last 24 Hours Test 10/24/17 14:00 10/24/17 14:02 White Blood Count 7.91 K/uL Red Blood Count 4.36 M/uL Hemoglobin 10.6 g/dL Hematocrit 34.0 % Mean Corpuscular Volume 78.0 fL Mean Corpuscular Hemoglobin 24.3 pg Mean Corpuscular Hemoglobin Concent 31.2 g/dl Platelet Count 221 K/uL Mean Platelet Volume 9.2 fL Neutrophils (%) (Auto) 71.6 % Lymphocytes (%) (Auto) 16.4 % Monocytes (%) (Auto) 6.8 % Eosinophils (%) (Auto) 4.4 % Basophils (%) (Auto) 0.4 % Neutrophils # (Auto) 5.66 K/uL Lymphocytes # (Auto) 1.30 K/uL Monocytes # (Auto) 0.54 K/uL Eosinophils # (Auto) 0.35 K/uL Basophils # (Auto) 0.03 K/uL RDW Standard Deviation 49.2 fL RDW Coefficient of Variation 17.3 % Immature Granulocyte % (Auto) 0.4 % Immature Granulocyte # (Auto) 0.03 K/uL Prothrombin Time 10.6 SECONDS Prothromb Time International Ratio 1.0 Activated Partial Thromboplast Time 25.1 SECONDS Partial Thromboplastin Ratio 1.0 Sodium Level 138 mmol/L Potassium Level 4.0 mmol/L Chloride Level 105 mmol/L Carbon Dioxide Level 23 mmol/L Anion Gap 10.0 mmol/L Blood Urea Nitrogen 22 mg/dl Creatinine 1.14 mg/dl Est Creatinine Clear Calc Drug Dose 64.8 ml/min Estimated GFR () 71.0 Estimated GFR (Non- 61.3 BUN/Creatinine Ratio 19.4 Random Glucose 105 mg/dl Calcium Level 8.4 mg/dl Phosphorus Level 3.1 mg/dl Magnesium Level 1.6 mg/dl Total Bilirubin 0.4 mg/dl Direct Bilirubin 0.1 mg/dl Aspartate Amino Transf (AST/SGOT) 12 U/L Alanine Aminotransferase (ALT/SGPT) 23 U/L Alkaline Phosphatase 65 U/L Troponin I < 0.015 ng/ml Total Protein 6.8 gm/dl Albumin 2.8 gm/dl Thyroid Stimulating Hormone (TSH) 1.130 uIu/ml Bedside Glucose 113 mg/dl ECG personally reviewed: ECG 10/24/17: NSR at 67 bpm. RBBB. Telemetry (in office): bradycardia in 50s (possible junctional. no obvious P waves). Echo 10/20/2017: Normal left ventricular systolic function. EF 55-60%. Normal RVSP. No pericardial effusion. Cardiac catheterization 09/05/2017: Separate ostia for LAD and circumflex. Proximal LAD 30%; mid LAD 60-70% near bifurcation of D1. Late mid LAD 40%. Distal LAD 50%. Proximal D1 40%. Mid circumflex 40%. Proximal OM1 50%. Mid OM1 50-60%. At the bifurcation of OM2, there was a 99% subtotal occlusion of the OM2. Blek-pk-[id number] and ohigs-oj-qdgy collaterals. Proximal RCA 30%. Distal RCA 40%. PDA 90%. LVEDP 16. No aortic stenosis. Transesophageal echo at [facility]: Normal LV size, systolic function, wall motion. EF 55%. 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 Small, hemodynamically insignificant pericardial effusion. No AI. CT angiography 10/19/2017: Extensive mixed plaque formation about the abdominal aorta and proximal branch vessels without aneurysm, dissection, high- grade stenosis or proximal branch occlusion identified per Radiology. Three suspicious nodules about the left upper lobe and lingula, largest measuring 1.8 cm (suspicious for neoplasm per Radiology). Suggested mild pulmonary edema per Radiology. Assessment & Plan 1. Unresponsive/syncope: This is the 2nd episode within the past 6 days. The 1st episode was thought to be secondary to antihypertensive regimen that was much increased while at [facility]. He did well at home on only carvedilol 12.5 mg twice daily until today while in the office. Will reduce carvedilol to 3.125 mg twice daily, keeping some degree of beta-donaldo secondary to recent ventricular tachycardia while hospitalized. He also had a near syncopal episode initially, prompting hospitalization in July of 2017. Cannot rule out arrhythmia as the precipitating cause of his symptoms with perhaps some form of vasovagal component afterwards. We will discuss with electrophysiology. For today's episode, he was sent to the ED via ambulance for IV fluids, labs, and admission with telemetry. 2. Ventricular tachycardia: He reportedly had 1 minutes of ventricular tachycardia while hospitalized within the past week. This was evaluated and reported by Dr. Barone. Continue low-dose beta-donaldo as noted above. Electrophysiology consultation tomorrow. 3. Hypotension: We will reduce carvedilol further to 3.125 mg twice daily. He has recently had significant titration and antihypertensive regimen, only then to have it weaned with calcium channel donaldo and ISAIAS-inhibitor being discontinued completely as noted above. 4. CAD status post PCI: He has PCI of PDA, circumflex/OM, and LAD. Continue aspirin 81 mg daily and Plavix 75 mg daily, without interruption. Continue high -intensity statin therapy and beta-donaldo as above. No angina. Troponins may become slightly elevated due to his hypotensive episode earlier today. 5. Type A dissection: Repeat imaging here without notable dissection per Radiology on 10/19/2017. No further imaging recommended at this time for recurrent unresponsive episode. 6. Disposition: Cardiology will continue to follow with electrophysiology consultation on 10/25/2017. Patient care has been discussed with Dr. Dominguez of the ED and Dr. Forbes of the hospitalist admitting service. Highly complex medical issues. Greater than 60 minutes spent, with greater than 50% time spent acutely managing the patient for his unresponsive episode, reviewing chart/studies, counseling his , and coordinating care with other providers. Thank you for allowing me to participate in the care of your patient. Please call for any other questions or concerns. Sincerely, Paras Singh M.D.
[2017-10-24 19:28] VITALS: BP 137/75; PULSE 73; TEMP 36.6; O2SAT 94
[2017-10-24] MEDS: PrednisoLONE ACET 1% OP SUSP 5 ML BTL OP SCH ×2 (20:52→21:02)
[2017-10-24] MEDS: CARVEDILOL 3.125 MG TAB PO SCH (20:54)
[2017-10-24] MEDS: INSULIN GLARGINE SOLOSTAR 100 UNITS/ML 3 ML PEN SC SCH (20:57)
[2017-10-24] MEDS ORDERED: CARVEDILOL 25 MG TAB PO SCH ×2 (21:00)
[2017-10-24] MEDS ORDERED: ASPIRIN 81 MG ECTAB PO SCH (21:00)
[2017-10-24] MEDS ORDERED: METFORMIN HCL 500 MG TAB PO SCH (21:00)
[2017-10-24] MEDS ORDERED: INSULIN GLARGINE SOLOSTAR 100 UNITS/ML 3 ML PEN SC SCH (21:00)
[2017-10-24 23:23] VITALS: BP 109/67; PULSE 86; TEMP 37.3; O2SAT 94
[2017-10-25] VITALS (7 sets, daily range): BP systolic 120–147; BP diastolic 74–80; PULSE 66–75; TEMP 36.6–37.1; O2SAT 95–96
[2017-10-25] MEDS: PrednisoLONE ACET 1% OP SUSP 5 ML BTL OP SCH ×3 (08:12→18:14)
[2017-10-25] MEDS: CARVEDILOL 3.125 MG TAB PO SCH ×2 (08:14→19:35)
[2017-10-25] MEDS: INSULIN GLARGINE SOLOSTAR 100 UNITS/ML 3 ML PEN SC SCH (08:16)
[2017-10-25] MEDS ORDERED: CEROVITE ADV FORMULA TAB PO SCH (09:00)
[2017-10-25] MEDS ORDERED: ALLOPURINOL 300 MG TAB PO SCH (09:00)
[2017-10-25] MEDS ORDERED: LISINOPRIL 20 MG TAB PO SCH (09:00)
[2017-10-25] MEDS ORDERED: CHOLECALCIFEROL 1000 INTER.UNIT TAB PO SCH (09:00)
[2017-10-25] MEDS ORDERED: METFORMIN HCL 500 MG TAB PO SCH (09:00)
[2017-10-25] MEDS ORDERED: FINASTERIDE 5 MG TAB PO SCH (09:00)
[2017-10-25] MEDS ORDERED: CLOPIDOGREL BISULFATE 75 MG TAB PO SCH (09:00)
[2017-10-25] MEDS ORDERED: ATORVASTATIN 40 MG TAB PO SCH (09:00)
[2017-10-25] MEDS ORDERED: LIDOCAINE HCL 1% 20 ML VIAL ONE (11:20)
--- NOTE | 2017-10-25 12:02 | [facility] Operative Report ---
Operative Report Date of Service Oct 25, 2017. Operative Report The procedure performed: Implantation of patient activated loop recorder Staff motor vehicle field representative: Elmer Serra MD Indication: The patient is a 69-year-old gentleman with 3 episodes of syncope. The episodes themselves have unclear etiology. He was noted previously to have a possible junctional rhythm and ventricular tachycardia. A loop implant was felt to be helpful in determining the diagnosis of the syncope. Procedure in detail: The patient was informed of the risks benefits and alternatives to the intended procedure. They understood such and wished to proceed. The patient was taken to the electrophysiology suite where the upper chest area was prepped and draped in the usual sterile fashion. An area left lateral to the sternum in the 4th intercostal space was subsequently anesthetized using subcutaneous administration of lidocaine solution. A small incision was made at this site and implantation of the loop recorder was accomplished using a proprietary implantation tool. The small incision was subsequently closed using a single 4 0 Vicryl suture. Steri-Strips and a sterile dressing were then applied. The patient tolerated the procedure well. There were no immediate complications. The device was tested noninvasively prior to conclusion of the procedure. Equipment used: Patient activated loop recorder: Computer Network Engineer [employer]. Model number LNQ11. Serial number [id number] I attest to the content of the Intraoperative Record and any orders documented therein. Any exceptions are noted below.
--- NOTE | 2017-10-25 13:19 | Cardiology Consultation ---
Cardiology Consultation Date of Consultation: Oct 25, 2017. Requesting Physician: Samantha Reason for Consultation: Syncope Pt evaluation today including: conversation w/ patient, conversation w/ family , physical exam, chart review, lab review, review of studies, review of inpatient medication list, conversation w/ attending History of Present Illness The patient is a 69-year-old gentleman with an extensive cardiac history well detailed in the note by Dr. Singh. Yesterday he suffered a syncopal episode in the clinic. This is the patient's 3rd syncopal episode over the summer. The 1st episode occurred shortly after a exercise activity. Patient states that he had chest perform some a aerobic exercise was in the process of stretching when he became lightheaded and dizzy. He later recalls waking up and being told that he lost consciousness briefly. A 2nd episode happened approximately 2 weeks ago. This did occur in the Cardiology Clinic and was also preceded by a sense of dizziness and lightheadedness. Patient underwent hospitalization at that time with overnight telemetry. He was felt to have had a 1 minutes episode of ventricular tachycardia during that period. Yesterday's episode also involved a sense of dizziness lightheadedness leading to syncope. Patient describes these episodes as feeling as if his blood sugar is low. He is not aware of any palpitations around this time. He has not report palpitations at other times. He has not had other episodes of dizziness or lightheadedness. He is a fairly sedentary individual but does not report any symptoms of exertional chest pain or chest pain at rest. This includes his initial presentation with syncope at the gym. During yesterday's episode he was felt to have a relative bradycardia with a pulse in the 50s. Telemetry monitoring suggested a junctional rhythm but there may have been small P-waves during this period of time. His blood sugar was normal. He does not recall feeling poorly afterwards. He does not report symptoms of prominent fatigue after any of these episodes. This morning he feels quite well. He has no complaints currently. Family History Patient reports no known family medical history. 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 No recent constitutional symptoms such as fevers or chills. Some fatigue overall. All Other Systems: Reviewed and Negative Allergies Coded Allergies: No Known Allergies (Verified , 10/24/17) Medications Current Inpatient Medications Medications (Trade) Dose Ordered Sig/Woody Route Start Time Stop Time Status Last Admin Dose Admin Acetaminophen (Tylenol Tab) 650 mg Q4H PRN PO 10/24/17 16:15 11/23/17 16:14 Magnesium Hydroxide (Milk Of Magnesia Susp) 30 ml Q12H PRN PO 10/24/17 16:15 11/23/17 16:14 Ondansetron HCl (Zofran Inj) 4 mg Q6H PRN IV 10/24/17 16:15 11/23/17 16:14 Allopurinol (Zyloprim Tab) 300 mg QAM PO 10/25/17 09:00 11/24/17 08:59 10/25/17 08:14 300 MG Aspirin (Ecotrin Tab) 81 mg QPM PO 10/24/17 21:00 11/23/17 20:59 10/24/17 20:55 81 MG Atorvastatin Calcium (Lipitor Tab) 80 mg DAILY PO 10/25/17 09:00 11/24/17 08:59 10/25/17 08:15 80 MG Clopidogrel Bisulfate (plAVix TAB) 75 mg QAM PO 10/25/17 09:00 11/24/17 08:59 10/25/17 08:13 75 MG Finasteride (Proscar Tab) 5 mg QAM PO 10/25/17 09:00 11/24/17 08:59 10/25/17 08:12 5 MG Furosemide (Lasix Tab) 20 mg QAM PRN PO 10/24/17 16:15 11/23/17 16:14 Insulin Glargine (Lantus Solostar Pen) 15 units BID SC 10/24/17 21:00 11/23/17 20:59 10/25/17 08:16 15 UNITS Lisinopril (Zestril Tab) 20 mg DAILY PO 10/25/17 09:00 11/24/17 08:59 10/25/17 08:13 20 MG Metformin HCl (Glucophage Tab) 1,000 mg DAILY PO 10/25/17 09:00 11/24/17 08:59 10/25/17 08:14 1,000 MG Metformin HCl (Glucophage Tab) 500 mg HS PO 10/24/17 21:00 11/23/17 20:59 10/24/17 20:54 500 MG Multivitamins/ Minerals (Multivitamin W/ Minerals Tab) 2 tab DAILY PO 10/25/17 09:00 11/24/17 08:59 10/25/17 08:13 2 TAB Prednisolone Acetate (Pred Forte 1% Oph Susp) 1 drops QID OP 10/24/17 17:00 11/23/17 16:59 10/25/17 08:12 1 DROPS Cholecalciferol (Vitamin D Tab) 2,000 inter.unit DAILY PO 10/25/17 09:00 11/24/17 08:59 10/25/17 08:36 2,000 INTER.UNIT Miscellaneous (Iv Fluids Completed) 1 ea PRN PRN N/A 10/24/17 16:15 10/24/18 16:14 Glucose (Glucose 40% Gel) 15-30 GRAMS 15 GRAMS... UD PRN PO 10/24/17 17:30 11/23/17 17:29 Glucose (Glucose Chew Tab) 4-8 Tablets 4 Tabl... UD PRN PO 10/24/17 17:30 11/23/17 17:29 Dextrose (Dextrose 50% 50ML Syringe) 25-50ML 25ML FOR ... UD PRN IV 10/24/17 17:30 11/23/17 17:29 Glucagon (Glucagon Inj) 1 mg UD PRN IM 10/24/17 17:30 11/23/17 17:29 Carbohydrates (Carbohydrates For Hypoglycemia) 15-30 GRAMS 15 grams if BSG 54-69... UD PRN PO 10/24/17 17:30 11/23/17 17:29 Carvedilol (Coreg Tab) 3.125 mg BID PO 10/24/17 21:00 11/23/17 20:59 10/25/17 08:14 3.125 MG Physical Exam Vital Signs Past 12 Hours Date Time Temp Pulse Resp B/P (MAP) Pulse Ox O2 Delivery O2 Flow Rate FiO2 10/25/17 11:56 70 14 139/74 (95) 95 Room Air 10/25/17 10:41 37.1 66 17 133/76 (95) 95 Room Air 10/25/17 08:00 96 Room Air 10/25/17 06:49 36.6 74 18 147/75 (99) 96 Room Air 10/25/17 02:44 36.6 67 18 143/76 (98) 95 Room Air The patient is alert and oriented. Mood and affect appeared normal. He answered all questions appropriately. HEENT: Pupils are equal and reactive to light and accommodation. Extraocular movements are intact. The sclerae are anicteric. Neuro: Some left facial drooping, otherwise cranial nerves are intact. Neck: Patient's neck is supple. He has palpable carotid pulses bilaterally without bruits on auscultation. There is no evidence of jugular venous distention. The thyroid is not enlarged. Lungs: Clear to auscultation bilaterally. He has good air movement without use of accessory muscles. No rales wheezes or rhonchi. Cardiac: Heart demonstrates a regular rate and rhythm. Normal S1 and S2. No murmurs on examination. Pulses: The patient has palpable radial pulses bilaterally that are equal in intensity Extremities: There was no evidence of hypoperfusion. There is no cyanosis or clubbing. There is no edema. Skin: I did not appreciate any rashes on examination today. Data Laboratory Results: Last 24 Hours Test 10/24/17 14:00 10/24/17 14:02 10/24/17 18:50 10/24/17 20:29 White Blood Count 7.91 K/uL Red Blood Count 4.36 M/uL Hemoglobin 10.6 g/dL Hematocrit 34.0 % Mean Corpuscular Volume 78.0 fL Mean Corpuscular Hemoglobin 24.3 pg Mean Corpuscular Hemoglobin Concent 31.2 g/dl Platelet Count 221 K/uL Mean Platelet Volume 9.2 fL Neutrophils (%) (Auto) 71.6 % Lymphocytes (%) (Auto) 16.4 % Monocytes (%) (Auto) 6.8 % Eosinophils (%) (Auto) 4.4 % Basophils (%) (Auto) 0.4 % Neutrophils # (Auto) 5.66 K/uL Lymphocytes # (Auto) 1.30 K/uL Monocytes # (Auto) 0.54 K/uL Eosinophils # (Auto) 0.35 K/uL Basophils # (Auto) 0.03 K/uL RDW Standard Deviation 49.2 fL RDW Coefficient of Variation 17.3 % Immature Granulocyte % (Auto) 0.4 % Immature Granulocyte # (Auto) 0.03 K/uL Prothrombin Time 10.6 SECONDS Prothromb Time International Ratio 1.0 Activated Partial Thromboplast Time 25.1 SECONDS Partial Thromboplastin Ratio 1.0 Sodium Level 138 mmol/L Potassium Level 4.0 mmol/L Chloride Level 105 mmol/L Carbon Dioxide Level 23 mmol/L Anion Gap 10.0 mmol/L Blood Urea Nitrogen 22 mg/dl Creatinine 1.14 mg/dl Est Creatinine Clear Calc Drug Dose 64.8 ml/min Estimated GFR () 71.0 Estimated GFR (Non- 61.3 BUN/Creatinine Ratio 19.4 Random Glucose 105 mg/dl Calcium Level 8.4 mg/dl Phosphorus Level 3.1 mg/dl Magnesium Level 1.6 mg/dl Total Bilirubin 0.4 mg/dl Direct Bilirubin 0.1 mg/dl Aspartate Amino Transf (AST/SGOT) 12 U/L Alanine Aminotransferase (ALT/SGPT) 23 U/L Alkaline Phosphatase 65 U/L Troponin I < 0.015 ng/ml Total Protein 6.8 gm/dl Albumin 2.8 gm/dl Thyroid Stimulating Hormone (TSH) 1.130 uIu/ml Bedside Glucose 113 mg/dl 147 mg/dl Urine Color YELLOW Urine Appearance CLEAR Urine pH 5.0 Urine Specific [place] 1.018 Urine Protein NEG Urine Glucose (UA) NEG Urine Ketones TRACE Urine Occult Blood NEG Urine Nitrite NEG Urine Bilirubin NEG Urine Urobilinogen NEG Urine Leukocyte Esterase NEG Test 10/24/17 22:09 10/25/17 03:53 10/25/17 07:22 10/25/17 11:04 Troponin I 0.019 ng/ml 0.031 ng/ml Bedside Glucose 85 mg/dl 93 mg/dl Imaging: Chest x-ray and head CT did not demonstrate any acute findings. EKG: Normal sinus rhythm with right bundle branch block Telemetry reviewed: No arrhythmia Echocardiogram performed July 20, 2017: Preserved LV systolic function. Stage I diastolic dysfunction. No other significant abnormalities. Assessment & Plan 1. Syncope: On the 2 occasions in the Cardiology Clinic the patient was noted to have significant hypotension. On both occasions he was noted to have a pulse which was of a reasonable rate. While he does not have the classic symptoms of high vagal tone such as significant diaphoresis, nausea and profound fatigue, this is still likely a vaso depressor response of some variety. In the past he had been given escalating doses of anti hypertensives and that may have contributed to his initial episode. Yesterday his blood pressure was slightly low at the time of presentation and he may not tolerate even his current dose of anti hypertensives. The episode itself is not consistent with carotid sinus sensitivity. I do not think that his history of parotid tumor as resulted in any carotid sinus sensitivity. While his symptoms remind him of hypoglycemia he has had documented normal glucose levels at the time of these events. I would agree with reduction in his carvedilol dose. I do not believe he requires more aggressive therapies such as higher sodium intake, volume expanders such as fludrocortisone or midodrine. 2. Ventricular tachycardia: Patient reportedly had an episode of ventricular tachycardia lasting 1 minutes while hospitalized earlier in the year. There were no symptoms this is occurred in the early childhood assistant hours. He certainly has an element of ischemic heart disease but overall preserved LV systolic function which makes his prognosis in this respect quite good. He has been maintained on a beta-donaldo. I do not feel that he has a good indication for an ICD at this point. I do not believe that his events have been mediated by ventricular tachycardia or malignant ventricular arrhythmias. 3. Coronary artery disease: Patient likely does have some element of ischemia and certain territories based on his known anatomy. He has not have symptoms of angina or coronary insufficiency either at rest or with activity. None of these episodes of syncope were preceded by sense of chest pressure or pain and they all occurred at rest. Overall, it seems most likely explanation for the patient's syncope is a drop in blood pressure a vasodepressor response. However there have been some concerns about abnormal heart rhythms either junctional or ventricular in nature. I think a period of monitoring is warranted in order to detect any occult arrhythmia and provide more appropriate and directed therapy. I did suggest the option of either 30 day outpatient monitor or implantable loop recorder.
--- NOTE | 2017-10-25 14:10 | Cardiology Follow-Up ---
Subjective Date of Service: Oct 25, 2017. Pt evaluation today including: conversation w/ patient, conversation w/ family , physical exam, chart review, lab review, review of studies, conversation w/ outreach consultant, review of inpatient medication list, conversation w/ attending History of Present Illness Mr. 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 He also has type 2 diabetes and sleep apnea on CPAP QHS. He feels well today. He denies chest pain, shortness of breath, syncope, near- syncope, palpitations, or edema. He has not had any further lightheadedness. His is present at the bedside. Review of systems: As above. Medications Current Inpatient Medications Medications (Trade) Dose Ordered Sig/Woody Route Start Time Stop Time Status Last Admin Dose Admin Acetaminophen (Tylenol Tab) 650 mg Q4H PRN PO 10/24/17 16:15 11/23/17 16:14 Magnesium Hydroxide (Milk Of Magnesia Susp) 30 ml Q12H PRN PO 10/24/17 16:15 11/23/17 16:14 Ondansetron HCl (Zofran Inj) 4 mg Q6H PRN IV 10/24/17 16:15 11/23/17 16:14 Allopurinol (Zyloprim Tab) 300 mg QAM PO 10/25/17 09:00 11/24/17 08:59 10/25/17 08:14 300 MG Aspirin (Ecotrin Tab) 81 mg QPM PO 10/24/17 21:00 11/23/17 20:59 10/24/17 20:55 81 MG Atorvastatin Calcium (Lipitor Tab) 80 mg DAILY PO 10/25/17 09:00 11/24/17 08:59 10/25/17 08:15 80 MG Clopidogrel Bisulfate (plAVix TAB) 75 mg QAM PO 10/25/17 09:00 11/24/17 08:59 10/25/17 08:13 75 MG Finasteride (Proscar Tab) 5 mg QAM PO 10/25/17 09:00 11/24/17 08:59 10/25/17 08:12 5 MG Furosemide (Lasix Tab) 20 mg QAM PRN PO 10/24/17 16:15 11/23/17 16:14 Insulin Glargine (Lantus Solostar Pen) 15 units BID SC 10/24/17 21:00 11/23/17 20:59 10/25/17 08:16 15 UNITS Lisinopril (Zestril Tab) 20 mg DAILY PO 10/25/17 09:00 11/24/17 08:59 10/25/17 08:13 20 MG Metformin HCl (Glucophage Tab) 1,000 mg DAILY PO 10/25/17 09:00 11/24/17 08:59 10/25/17 08:14 1,000 MG Metformin HCl (Glucophage Tab) 500 mg HS PO 10/24/17 21:00 11/23/17 20:59 10/24/17 20:54 500 MG Multivitamins/ Minerals (Multivitamin W/ Minerals Tab) 2 tab DAILY PO 10/25/17 09:00 11/24/17 08:59 10/25/17 08:13 2 TAB Prednisolone Acetate (Pred Forte 1% Oph Susp) 1 drops QID OP 10/24/17 17:00 11/23/17 16:59 10/25/17 13:55 1 DROPS Cholecalciferol (Vitamin D Tab) 2,000 inter.unit DAILY PO 10/25/17 09:00 11/24/17 08:59 10/25/17 08:36 2,000 INTER.UNIT Miscellaneous (Iv Fluids Completed) 1 ea PRN PRN N/A 10/24/17 16:15 10/24/18 16:14 Glucose (Glucose 40% Gel) 15-30 GRAMS 15 GRAMS... UD PRN PO 10/24/17 17:30 11/23/17 17:29 Glucose (Glucose Chew Tab) 4-8 Tablets 4 Tabl... UD PRN PO 10/24/17 17:30 11/23/17 17:29 Dextrose (Dextrose 50% 50ML Syringe) 25-50ML 25ML FOR ... UD PRN IV 10/24/17 17:30 11/23/17 17:29 Glucagon (Glucagon Inj) 1 mg UD PRN IM 10/24/17 17:30 11/23/17 17:29 Carbohydrates (Carbohydrates For Hypoglycemia) 15-30 GRAMS 15 grams if BSG 54-69... UD PRN PO 10/24/17 17:30 11/23/17 17:29 Carvedilol (Coreg Tab) 3.125 mg BID PO 10/24/17 21:00 11/23/17 20:59 10/25/17 08:14 3.125 MG Objective Vital Signs Past 12 Hours Date Time Temp Pulse Resp B/P (MAP) Pulse Ox O2 Delivery O2 Flow Rate FiO2 10/25/17 11:56 70 14 139/74 (95) 95 Room Air 10/25/17 10:41 37.1 66 17 133/76 (95) 95 Room Air 10/25/17 08:00 96 Room Air 10/25/17 06:49 36.6 74 18 147/75 (99) 96 Room Air 10/25/17 02:44 36.6 67 18 143/76 (98) 95 Room Air Last Recorded Weight-Kilograms: 106.000 Intake & Output 10/24/17 10/25/17 10/26/17 08:00 08:00 08:00 Intake Total 700 ml Output Total 1275 ml Balance -575 ml Physical Exam Gen.: No acute distress. Alert and oriented. HEENT: Anicteric sclera. Neck: No JVD. Cardiac: Regular rate and rhythm. Normal S1-S2. No murmurs, rubs, or gallops. Pulmonary: Clear to auscultation bilaterally without wheezes, rales, or rhonchi. Abdomen: Soft, nontender, nondistended, with normoactive bowel sounds. No bruits noted. Extremities: 2+ radial pulses bilaterally. 2+ posterior tibialis pulses bilaterally. No edema or cyanosis. Psychiatric: Affect appears appropriate. Data Laboratory Results: Last 24 Hours Test 10/24/17 14:02 10/24/17 18:50 10/24/17 20:29 10/24/17 22:09 Bedside Glucose 113 mg/dl 147 mg/dl Urine Color YELLOW Urine Appearance CLEAR Urine pH 5.0 Urine Specific [place] 1.018 Urine Protein NEG Urine Glucose (UA) NEG Urine Ketones TRACE Urine Occult Blood NEG Urine Nitrite NEG Urine Bilirubin NEG Urine Urobilinogen NEG Urine Leukocyte Esterase NEG Troponin I 0.019 ng/ml Test 10/25/17 03:53 10/25/17 07:22 10/25/17 11:04 Troponin I 0.031 ng/ml Bedside Glucose 85 mg/dl 93 mg/dl Telemetry personally reviewed: No arrhythmia. Chart reviewed. Assessment and Plan 1. Unresponsive/syncope: No further episodes. He did have moderate disease suggested on MRI neck performed at [facility] within the past 1 month. It was also noted that it was a suboptimal study due to artifact. Dr. Ireland plans on checking carotid duplex. Electrophysiology consultation was placed and patient presentation was discussed with Dr. Serra. He has since seen him in consultation and placed loop recorder to further evaluate for arrhythmia. Would recommend that he be discharged on low-dose carvedilol and no other antihypertensive agent at this time, unless he becomes significantly hypertensive. 2. Ventricular tachycardia: He reportedly had 1 minutes of ventricular tachycardia while hospitalized within the past week. This was evaluated and reported by Dr. Barone. Continue low-dose beta-donaldo as noted above. Electrophysiology consultation has been completed by Dr. Serra. Loop recorder in place. 3. Hypotension: Blood pressure has improved and has been mostly normal with mild hypertension at times. Certainly given his history of type a aortic dissection, tight blood pressure control is recommended but given 2 episodes of unresponsiveness with hypotension in the past 1 week, antihypertensive regimen is not being titrated. 4. CAD status post PCI: He has PCI of PDA, circumflex/OM, and LAD. Continue aspirin 81 mg daily and Plavix 75 mg daily, without interruption. Continue high -intensity statin therapy and beta-donaldo as above. No angina. 5. Type A aortic dissection: Repeat imaging here without notable dissection per Radiology on 10/19/2017. No further imaging recommended at this time for recurrent unresponsive episode. Blood pressure control is very important given episodes of unresponsiveness with hypotension, his outpatient regimen has been significantly reduced. Prior to his aortic dissection, his only antihypertensive agent was metoprolol tartrate 25 mg twice daily. 6. Disposition: Patient care has been discussed with Dr. Ireland of the primary hospitalist service as well as Dr. Serra of . From a cardiac perspective, he can be discharged home, pending carotid duplex findings. Follow-up in 1-2 weeks.
--- NOTE | 2017-10-25 15:49 | DIAGNOSTIC IMAGING REPORT ---
CAROTID DOPPLER NECK ART CLINICAL HISTORY: 77 years-old Male with recurrent syncope. Acute syncope COMPARISON: Carotid ultrasound 12/03/2015 TECHNIQUE: Multiple real time sonographic images of the carotid bifurcations were obtained assessing messina scale, color Doppler and spectral wave form appearance FINDINGS: RIGHT CAROTID: The peak systolic velocity measured within the right ICA measures 50 cm/sec. The end diastolic velocity measured 14 cm/sec. The ICA to CCA ratio measured 0.6 which correlates with a stenosis of 0-50%. LEFT CAROTID: The peak systolic velocity measured within the left ICA measures 231 cm/sec. The end diastolic velocity measured 50 cm/sec. The ICA to CCA ratio measured 2.3 which correlates with a stenosis of greater than 70%. There is normal antegrade vertebral flow bilaterally. Blood pressure on the right was measured at 143/76 and on the left measured 133/76. Moderate degree of mostly calcified plaque formation noted about the bilateral carotid bulbs. IMPRESSION: 1. Moderate mixed plaque formation about the bilateral carotid bulbs with elevated peak systolic velocities about the proximal left ICA correlating with greater than 70% luminal stenosis. No hemodynamically significant stenosis about the right ICA. 2. Normal antegrade vertebral flow bilaterally. The above report was generated using voice recognition software. It may contain grammatical, syntax or spelling errors. Electronically signed by: Je Cowan M.D. 10/25/2017 3:48 PM Dictated Date/Time: 10/25/2017 3:44 PM
[2017-10-25] MEDS ORDERED: OPTIRAY 320 IV PRN (16:30)
--- NOTE | 2017-10-25 17:34 | DIAGNOSTIC IMAGING REPORT ---
NECK ANGIO WITH CONTRAST HISTORY: Mental status change TECHNIQUE: Multiaxial CT images of the neck were performed following the intravenous administration of contrast to evaluate the major cervical vessels. Maximum intensity projection images were also obtained. All measurements were calculated based on NASCET criteria. A dose lowering technique was utilized adhering to the principles of ALARA. COMPARISON STUDY: Carotid Doppler same date. CT chest 10/19/2017. FINDINGS: Significant atherosclerotic change thoracic aorta. 1.7 cm irregular nodule superior left upper lobe which has been described previously small caliber left vertebral artery presumably on a congenital basis. 75% stenosis distal right vertebral vessel. Probable occlusion distal left vertebral artery. Plaque formation right carotid bifurcation with no significant stenosis. Plaque formation left carotid bifurcation with an ulcerative plaque present at the origin of the left proximal internal carotid artery. This less likely represents a small chronic linear dissection area in estimated narrowing is 60%. IMPRESSION: 1. 1.7 cm irregular nodule superior segment left upper lobe suggestive of neoplasm. 2. Critical stenosis and/or occlusion distal left vertebral artery. 3. 75% stenosis distal right vertebral artery. 4. 60% narrowing proximal left internal carotid artery with associated ulcerative plaque versus small short segment chronic dissection. 5. No significant stenosis of the right carotid system. The above report was generated using voice recognition software. It may contain grammatical, syntax or spelling errors. Electronically signed by: Kevin Rodrigues M.D. 10/25/2017 5:32 PM Dictated Date/Time: 10/25/2017 5:24 PM
--- NOTE | 2017-10-25 18:38 | Medical Student: [facility] ---
Med Student Progress Note Date of Service Oct 25, 2017. Subjective Pt evaluation today including: conversation w/ patient, conversation w/ family , physical exam Pain: 0 PO Intake: Restricted Diet for PET scan Voiding: no voiding problems, no incontinence Mr. Adame is a 77 WM with a history of CAD, DM-II, and microcytic anemia who presents to [facility]'s telemetry unit on Day 2 of admission for a syncopal episode and hypotension. Over the course of a few months, he had several stents placed. He had a near syncopal episode prompting him to be transferred to [facility] for an aortic dissection. It resulted in being a small dissection, not indicative of surgical intervention. Instead, it wash monitored and he was sent to cardiac rehab. 10/19- He was attending his f/u with his geothermal field technician Dr. Singh post- discharge cardiac rehab when he had a syncopal episode. The next day he was stable, in sinus rhythm and discharged with reduction to his CAD and DM medication regimen. 10/24- Mr. Adame visited Dr. Singh's for his syncope episode from a few days prior. Pt recall his energy levels waning compared to the past few weeks on the day of his appointment. There were irregularities to his feeding habits. He is usually responsible with checking his blood glucose levels. That morning it was in the 150s and before lunch within the 110s. While visiting his geothermal field technician, he suddenly felt "sweaty and fainted". Prior to this, during his check-in at the office, his systolic BP was running low, running in the 90s. No BP was obtainable at the office post-syncope. The last memory he has is of him turning to his left side in order to talk to Dr. Singh and then waking up in the [facility]. He was sent to the telemetry unit for further evaluation and diagnostics, including a CTA for aortic dissection and ECHO. 10/25- . 8:40a: Mr. Adame is in great spirits, stating that he "feels much better than the day before". He has had normal bowel movements, and no difficulty feeding. He denies having fever, SOB, Chest pain, N/V, constipation, diarrhea LE pain or swelling. His main concerns are his disposition, as he has a PET scan scheduled at [facility] tomorrow morning, and his medication regimen, stating that "he was overmedicated before his most recent syncopal episode". 12:25p: Since I saw him last, pt received a loop recorder and had a device unit support representative come in to educate him and his about how to operate, record , and store any of the readings. Past Medical/Surgical History DM HTN Hyperlipidemia Gout BPH CAD s/p stents Recent aortic dissection Parotid neoplasm Lung nodule FHx Neg for MT/CVA Soc Hx: Former Smoker (quit in the 60s), No EtOH consumption, No Recreational drug usage, heterosexual, , occupationally retired Review of Systems Constitutional: + fatigue, No fever, No chills, No weight loss, No weakness Eyes: No worsening of vision, No eye pain, No redness, No discharge ENT: No hearing loss, No sore throat, No tinnitus Respiratory: No cough, No sputum, No wheezing, No shortness of breath, No dyspnea on exertion, No dyspnea at rest, No hemoptysis Cardiac: No chest pain, No orthopnea, No PND, No edema, No claudication, No palpitations Breast: No breast lump, No change in shape, No nipple discharge, No breast pain Abdomen: No pain, No nausea, No vomiting, No diarrhea, No constipation Musculoskeletal: No joint pain, No muscle pain, No swelling, No calf pain Male : No dysuria, No urinary frequency, No incontinence, No nocturia more than once/night, No slowing stream, No hematuria, No sexual dysfunction Neurologic: No memory loss, No paralysis, No weakness, No numbness/tingling, No vertigo, No balance problems Psychiatric: No depression symptoms, No anhedonism, No anxiety, No insomnia, No substance abuse Heme: No abnormal bleeding/bruising, No clotting problems, No swollen lymph nodes, No night sweats Endo: No fatigue, No excessive thirst, No excessive urination Skin: No rash, No itch, No new/changing skin lesions, No color change, No bleeding All Other Systems: Reviewed and Negative Objective Vital Signs Date Time Temp Pulse Resp B/P (MAP) Pulse Ox O2 Delivery O2 Flow Rate FiO2 10/25/17 06:49 36.6 74 18 147/75 (99) 96 Room Air 10/25/17 02:44 36.6 67 18 143/76 (98) 95 Room Air 10/25/17 00:00 Room Air 10/24/17 23:23 37.3 86 18 109/67 (81) 94 Room Air 10/24/17 19:28 36.6 73 18 137/75 (95) 94 Room Air 10/24/17 18:00 36.8 76 18 136/75 98 Room Air 10/24/17 17:54 36.8 76 18 136/75 (95) 98 Room Air 10/24/17 17:08 36.5 72 18 147/67 96 10/24/17 15:54 70 20 127/66 94 Room Air 10/24/17 14:10 128/58 114/63 100/50 10/24/17 14:09 Room Air 10/24/17 14:00 67 10/24/17 13:59 36.7 58 113/59 Room Air 10/24/17 13:59 97 Room Air Physical Exam General Appearance: WD/WN, no apparent distress, + obese Eyes: bilateral eyes normal inspection ENT: hearing grossly normal Neck: supple, no adenopathy, thyroid normal, no JVD, no carotid bruits (even though no bruits were present, there was still concern about potential stenosis) , trachea midline Respiratory/Chest: chest non-tender, lungs clear, normal breath sounds, no respiratory distress, no accessory muscle use Cardiovascular: regular rate, rhythm, no edema, no gallop, no JVD, no murmur Abdomen: normal bowel sounds, non tender, soft, no organomegaly, no pulsatile mass Extremities: non-tender, no pedal edema, no calf tenderness Neurologic/Psychiatric: alert, normal mood/affect, oriented x 3, + facial droop (r. hemiparesis secondary to known history of stroke) Skin: normal color (right side of neck had mild bluish tinge to it), warm/dry, no rash Lymphatic: no adenopathy Laboratory Results Last 24 Hours Test 10/24/17 14:00 10/24/17 14:02 10/24/17 18:50 10/24/17 20:29 White Blood Count 7.91 K/uL Red Blood Count 4.36 M/uL Hemoglobin 10.6 g/dL Hematocrit 34.0 % Mean Corpuscular Volume 78.0 fL Mean Corpuscular Hemoglobin 24.3 pg Mean Corpuscular Hemoglobin Concent 31.2 g/dl Platelet Count 221 K/uL Mean Platelet Volume 9.2 fL Neutrophils (%) (Auto) 71.6 % Lymphocytes (%) (Auto) 16.4 % Monocytes (%) (Auto) 6.8 % Eosinophils (%) (Auto) 4.4 % Basophils (%) (Auto) 0.4 % Neutrophils # (Auto) 5.66 K/uL Lymphocytes # (Auto) 1.30 K/uL Monocytes # (Auto) 0.54 K/uL Eosinophils # (Auto) 0.35 K/uL Basophils # (Auto) 0.03 K/uL RDW Standard Deviation 49.2 fL RDW Coefficient of Variation 17.3 % Immature Granulocyte % (Auto) 0.4 % Immature Granulocyte # (Auto) 0.03 K/uL Prothrombin Time 10.6 SECONDS Prothromb Time International Ratio 1.0 Activated Partial Thromboplast Time 25.1 SECONDS Partial Thromboplastin Ratio 1.0 Sodium Level 138 mmol/L Potassium Level 4.0 mmol/L Chloride Level 105 mmol/L Carbon Dioxide Level 23 mmol/L Anion Gap 10.0 mmol/L Blood Urea Nitrogen 22 mg/dl Creatinine 1.14 mg/dl Est Creatinine Clear Calc Drug Dose 64.8 ml/min Estimated GFR () 71.0 Estimated GFR (Non- 61.3 BUN/Creatinine Ratio 19.4 Random Glucose 105 mg/dl Calcium Level 8.4 mg/dl Phosphorus Level 3.1 mg/dl Magnesium Level 1.6 mg/dl Total Bilirubin 0.4 mg/dl Direct Bilirubin 0.1 mg/dl Aspartate Amino Transf (AST/SGOT) 12 U/L Alanine Aminotransferase (ALT/SGPT) 23 U/L Alkaline Phosphatase 65 U/L Troponin I < 0.015 ng/ml Total Protein 6.8 gm/dl Albumin 2.8 gm/dl Thyroid Stimulating Hormone (TSH) 1.130 uIu/ml Bedside Glucose 113 mg/dl 147 mg/dl Urine Color YELLOW Urine Appearance CLEAR Urine pH 5.0 Urine Specific [place] 1.018 Urine Protein NEG Urine Glucose (UA) NEG Urine Ketones TRACE Urine Occult Blood NEG Urine Nitrite NEG Urine Bilirubin NEG Urine Urobilinogen NEG Urine Leukocyte Esterase NEG Test 10/24/17 22:09 10/25/17 03:53 10/25/17 07:22 Troponin I 0.019 ng/ml 0.031 ng/ml Bedside Glucose 85 mg/dl Assessment and Plan Problems Syncope Assessment and Plan: Syncope: Pt is on a restricted carbohydrate diet in order to prepare for an upcoming PET scan, originally scheduled for tomorrow, 10/26/17 at [facility]. He has a hx of parotid cancer s/p resection. Also, on the Chest CT scan from 10/24, a pulmonary nodule was found, prompting the upcoming PET scan. The etiology of his syncope remains unknown. A loop recording device was implanted to assess if it may be due to an arrhythmic etiology. Both him and his received patient education on how the device reads, records, and stores data as well as how to submit it to his geothermal field technician. Although there were no audible carotid bruits on exam, due to the described nature of the event, Dr. Ireland ordered a GIANFRANCO before initiating his discharge. The U/S revealed R ICA having an ICA:CCA ratio of 0.6 , equating to 0-50% stenosis and the L. ICA having an ICA:CCA ratio of 2.3, equating to >70% stenosis. A CTA neck was ordered to further asses the degree of stenosis for his L. ICA. Because of recent findings from his GIANFRANCO, and as we await the results of his CTA neck, his PET scan was rescheduled to a future date. DM: His hypotension is concerning. It was discussed to reduce his Insulin glargine lower than 15 units/d. Mr. Adame is concerned that his current readings may not reflect his true diet and once he has the PET scan, he will not have maintained serum glucose levels. The plan is to keep the insulin dosage where it is at with close monitoring. CAD: The combination of the dose of is beta-donaldo and insulin was concerning because it potentially could have masked the early signs and symptoms of hypotension. He is currently in stable, sinus rhythm with a normal rate. It was discussed to potentially reduce his carvedilol. Disposition: Mr. Adame should not be released until his Neck CT results are in. Because he is currently stable and asx, he may be discharged this evening if the imaging results are supportive.
[2017-10-25] MEDS ORDERED: CARV12.52 PO (19:06)
[2017-10-25] MEDS ORDERED: FURO-85 PO (19:06)
[2017-10-25] MEDS ORDERED: INSDGIPEN SC (19:06)
[2017-10-25] MEDS ORDERED: CRG3125 PO (19:10)
[2017-10-25] MEDS ORDERED: METF-384 PO (19:10)
[2017-10-25] MEDS ORDERED: GLC/500 PO (19:10)
--- NOTE | 2017-10-25 19:15 | Discharge Instructions ---
Discharge Instructions Date of Service Oct 25, 2017. Admission Reason for Admission: Syncope And Collapse Discharge Discharge Diagnosis / Problem: Syncope Discharge Goals Goal(s): Improve disease control, Diagnostic testing, Therapeutic intervention Activity Recommendations Activity Limitations: as noted below Lifting Limitations: no more than 10 pounds Exercise/Sports Limitations: gradually increase as tolerated Shower/Bathe: no limitations Driving or Machine Use: NO DRIVING . Instructions / Follow-Up Instructions / Follow-Up You were admitted for passing out (syncope). You had a loop recorder placed for longshore equipment operator monitoring for arrhythmias causing your syncope. You were also found to have narrowing of your carotid arteries and vertebral arteries in the brain. You should schedule an appointment with a Neurovascular Radiologist at [place] for further evaluation of these blockages. They may be contributing to you passing out as well. If you feel lightheaded, you should immediately call for help and lie flat. Your carvedilol was decreased to 3.125mg twice daily. Please follow the medication list given to you today very carefully as you have had a lot of medication changes recently. Please follow up with your Net Ui Developer and your family doctor within 1-2 weeks. Current Hospital Diet Patient's current hospital diet: Diabetes Type 2 Diet Discharge Diet Recommended Diet: AHA Diet (Heart Healthy), Diabetes Type 2 Diet Procedures Procedures Performed: Carotid ultrasound CT Angiogram neck CT Head Chest xray Pending Studies Studies pending at discharge: no Laboratory Results Hemoglobin A1c Test 09/06/17 06:22 Range/Units Estimated Average Glucose 160 mg/dl Hemoglobin A1c 7.2 H 4.5-5.6 % Medical Emergencies . Who to Call and When: Medical Emergencies: If at any time you feel your situation is an emergency, please call 911 immediately. . Non-Emergent Contact Non-Emergency issues call your: Primary Care Provider, Net Ui Developer Call Non-Emergent contact if: you have any medication questions . . "Provider Documentation" section prepared by Jackelyn Ireland. .
--- NOTE | 2017-10-25 19:16 | Discharge Summary ---
Discharge Summary Date of Service Oct 25, 2017. 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 ADITYA-moderate bilateral HTN HPL DM II gout KEN obesity CAD - NSTEMI 07/2017 - recent complex history of stenting followed by coronary artery and type A aortic dissection History of nonsustained ventricular tachycardia Immunizations: Have You Had Influenza Vaccine: N/A History of Tetanus Vaccine?: Yes History of Pneumococcal: No History of Hepatitis B Vaccine: No Procedures: CT angiogram neck Carotid ultrasound Chest x-ray CT head Consultations: Cardiology Medication Reconciliation New Medications: Carvedilol (Carvedilol) 3.125 Mg Tab 3.125 MG PO BID for 30 Days, #60 TAB Changed Medications: Metformin Hcl (Glucophage) 500 Mg Tab 500 MG PO DAILY AT DINNER for 30 Days, TAB (Changed from: DO NOT START TAKING UNTIL 10/22/17) DO NOT START TAKING UNTIL 10/27/17 Metformin Hcl (Glucophage) 1,000 Mg Tab 1000 MG PO DAILY AT BREAKFAST for 30 Days, TAB (Changed from: DO NOT START TAKING UNTIL 10/22/17) DO NOT START TAKING UNTIL 10/27/17 Continued Medications: Allopurinol (Zyloprim) 300 Mg Tab 300 MG PO QAM, TAB Aspirin (Aspirin Ec) 81 Mg Tab 81 MG PO QPM Atorvastatin (Lipitor) 80 Mg Tab 80 MG PO DAILY, TAB Cholecalciferol (Vitamin D3) 2,000 Unit Cap 2000 UNITS PO DAILY Clopidogrel Bisulfate (Clopidogrel) 75 Mg Tab 75 MG PO QAM for 30 Days, #30 TAB 9 Refills Finasteride (Proscar) 5 Mg Tab 5 MG PO QAM, TAB Furosemide (Lasix) 20 Mg Tab 20 MG PO DAILY PRN for weight gain for 30 Days Insulin Glargine (Lantus Solostar) 100 Unit/Ml Inj 15 UNITS SC BID for 30 Days, PEN Ocuvite Preservision (Ocuvite Preservision) 1 Tab Tab 2 TAB PO DAILY, TAB Prednisolone Acetate (Ophth) (Prednisolone Acetate) 1 % Cecilia 1 DROPS OP QID Discontinued Medications: Carvedilol (Coreg) 12.5 Mg Tab 1 TAB PO BID for 30 Days, 0 Refills Discharge Exam Patient doing very well on day of discharge. No further syncope, no arrhythmias on telemetry. See discussion as below Review of Systems: Constitutional: No problem reported Eyes: No problem reported ENT: No problem reported Respiratory: No problem reported Cardiovascular: No problem reported Abdomen: No problem reported Musculoskeletal: No problem reported Genitourinary - Male: No problem reported Neurologic: No problem reported Psychiatric: No problem reported Endocrine: No problem reported Hematologic / Lymphatic: No problem reported Integumentary: No problem reported Physical Exam: General Appearance: WD/WN, no apparent distress Eyes: normal inspection, sclerae normal ENT: hearing grossly normal, + pertinent finding (Left parotid dissection apparent) Neck: supple, no adenopathy, no carotid bruits, trachea midline Respiratory/Chest: lungs clear, normal breath sounds, no respiratory distress, no accessory muscle use Cardiovascular: regular rate, rhythm, no edema, no murmur, normal peripheral pulses Abdomen / GI: normal bowel sounds, non tender, soft Extremities: normal inspection, no calf tenderness, normal capillary refill , no pedal edema, normal range of motion Neurologic/Psychiatric: alert, normal mood/affect, oriented x 3 Skin: normal color, warm/dry, no rash Lymphatic: no adenopathy Hospital Course This patient is a 77 y/o M Hx HTN, HPL, DM II, gout, KEN, obesity, CAD - NSTEMI 07/2017 - recent complex history of stenting followed by coronary artery and type A aortic dissection with resulting transfer to [place]. He also had in admission a few days ago for syncope and had a completely normal workup and was sent home. He did have one run of nonsustained ventricular tachycardia was asymptomatic during that admission. Recurrent syncope-had loop recorder placed this admission, could be from a combination of low blood pressure, along with vertebral artery and carotid artery stenoses causing poor blood flow to the brain Possible positional component with turning his head in the setting of both episodes of syncope recently. Carotid ultrasound revealed greater than 70% stenosis on the left, however CT angiogram of the neck was obtained which then confirmed 60% carotid artery stenosis with ulcerative plaque versus focal chronic dissection of the carotid bulb on the left, but with distal occlusion left vertebral artery and 75% stenosis of the right vertebral artery. Discussed the case with vascular surgery tongue presser who suggested outpatient follow -up with neurovascular radiology at [facility] as an outpatient. Nothing surgical to do for the carotid arteries at this time. I discussed the case at length with fiberglass boat maker as well. 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 -cont Statin, ASA, Plavix DM II -hemoglobin A1c last month was 7.2% which is well controlled for his age and comorbidities. Continue home Lantus microcytic anemia-microcytosis ongoing for years. No recent iron studies in many years. Iron studies here are more consistent with anemia of chronic disease. His colonoscopy last year with a few polyps but no active bleeding; he had a tubular adenoma on pathology. He is down to-3 g from 1 month ago. Some of this may be due to anemia of chronic disease and prolonged hospitalization recently. But was also placed on Plavix in addition to his aspirin for his stents and could have a slow GI bleed. B12 and folate here were normal -Hemoccult stool ordered but never collected during admission-recommend doing this as an outpatient -Recommend outpatient GI follow-up -Follow CBC as an outpatient BPH-stable -Continue finasteride gout-stable -Continue allopurinol for prophylaxis Stable for discharge to home Total Time Spent: Greater than 30 minutes This includes examination of the patient, discharge planning, medication reconciliation, and communication with other providers. Discharge Instructions Please refer to the electronic Patient Visit Report (Discharge Instructions) for additional information. Follow-Up With PCP and cardiology With neurovascular radiology at [facility] Additional Copies To Elmer Tobar M.D.; Emmanuel Singh MD
== END 2017-10-25 19:40 | disposition home or self-care (01) ==
LOC: EDBD 13:49 → C.EDC 13:49 → C.2T 16:11 → ENRESERV 16:36
PROVIDERS: ADMIT Family Medicine; ATTEND Family Medicine
DX: R55 Syncope and collapse (principal); D64.9 Anemia, unspecified; E83.51 Hypocalcemia; E83.42 Hypomagnesemia; I77.1 Stricture of artery; I25.10 Atherosclerotic heart disease of native coronary artery without angina pectoris; I10 Essential (primary) hypertension; E78.5 Hyperlipidemia, unspecified; I45.10 Unspecified right bundle-branch block; E11.9 Type 2 diabetes mellitus without complications; N40.0 Benign prostatic hyperplasia without lower urinary tract symptoms; R91.1 Solitary pulmonary nodule; I71.00 Dissection of unspecified site of aorta; I47.2 Ventricular tachycardia; I95.9 Hypotension, unspecified; G47.30 Sleep apnea, unspecified; Z99.89 Dependence on other enabling machines and devices; Z87.891 Personal history of nicotine dependence; Z98.61 Coronary angioplasty status; Z79.82 Long term (current) use of aspirin; Z79.4 Long term (current) use of insulin